=== PATIENT | female | born 1965 | race Caucasian/White ===

== ENCOUNTER → 2021-08-30 17:39 | Outpatient (CLI) | payer MEDICAID, SELFPAY ==
--- NOTE | 2021-08-30 17:44 | CT_ITS ---
STUDY: CT ORBITS WITHOUT CONTRAST REASON FOR EXAM: Female, 56 years old. Superficial foreign body of right eyelid RADIATION DOSAGE (If Supplied By Facility): CTDIvol = ( 29.38 ) mGy, DLP = ( 334.42 ) mGycm TECHNIQUE: The patient was scanned in a multi detector CT scanner. Transaxial imaging was performed without the administration of intravenous contrast material. Sagittal and coronal images were reconstructed. Individualized dose optimization techniques were used for this CT. COMPARISON: None. FINDINGS: Normal globes. Normal intraconal spaces. Normal optic nerve sheath complex. Normal bilateral extraocular muscles. Normal lacrimal glands. Normal bilateral medial and inferior orbital bolton. Normal bilateral maxillary bones. Normal bilateral frontozygomatic arches. Normal bilateral zygomatic temporal arches. Normal frontal sinus. Normal ethmoidal sinuses. Normal maxillary sinuses. Normal sphenoid sinuses. No radiopaque foreign body is seen. CT/Orb Sella Post Fossa Ear w/o IMPRESSION: No radiopaque foreign body is seen. Electronically Signed: Clint Melchor MD at 9:56 EDT , Service support ,
== END ==
PROVIDERS: PCP Internal Medicine; Referring Provider Ophthalmology; Visit Provider Ophthalmology
DX: S00.251A Superficial foreign body of right eyelid and periocular area, initial encounter (principal); X58.XXXA Exposure to other specified factors, initial encounter; Y93.9 Activity, unspecified; Y92.9 Unspecified place or not applicable; Y99.9 Unspecified external cause status
CPT/HCPCS: 70480

== ENCOUNTER → 2021-09-12 15:35 | Outpatient (CLI) | payer MEDICAID, SELFPAY ==
--- NOTE | 2021-09-12 15:53 | RAD_ITS ---
HISTORY: LUMBAGO RT SIDE. TECHNIQUE: XR Hip Unilateral with Pelvis when performed; 2-3 Views. # of images incl. paperwork: 3. COMPARISON: 04/26/2015. FINDINGS: OSSEOUS STRUCTURES: No acute displaced fracture identified. Note that overlapping bowel shadows may obscure detail. Mineralization unremarkable. ALIGNMENT/JOINTS: No dislocation. Joint space maintained. RAD/Hip Min 2 Views (Portable) IMPRESSION: No acute fracture or dislocation identified in the right hip. at 1229 Reported and signed by: Laney Wright MD Electronically Signed: Laney Wright MD at 12:28 EDT Tel , Service support ,
--- NOTE | 2021-09-12 15:53 | RAD_ITS ---
STUDY: X-RAY - PELVIS REASON FOR EXAM: Female, 56 years old. Low back pain TECHNIQUE: Three views of the pelvis were obtained. COMPARISON: None. FINDINGS: There is a non-specific bowel gas pattern. Normal visualized soft tissue structures. Normal bilateral iliac wings, sacroiliac joints and visualized sacrum. Normal visualized bilateral superior and inferior pubic rami. Normal pubic symphysis. Normal ischial tuberosities. Normal visualized right femoral head. Normal right acetabulum. Normal right hip joint. Normal visualized left femoral head. Normal left acetabulum. Normal left hip joint. RAD/Pelvis 1 or 2 Views IMPRESSION: Normal x-ray examination of the pelvis. Electronically Signed: Ralph Gonzalez MD at 17:13 EDT , Service support ,
--- NOTE | 2021-09-12 16:00 | RAD_ITS ---
STUDY: X-RAY - LUMBAR SPINE REASON FOR EXAM: Female, 56 years old. Right-sided back pain TECHNIQUE: 3 view(s) of the lumbar spine were obtained. COMPARISON: None FINDINGS: Normal lumbar lordosis. There is no substantial scoliosis. There is a normal alignment of the vertebrae. There is multilevel endplate spondylosis of the lumbar vertebrae. There is multi-level degenerative disc disease with multi-level disc space narrowing. The soft tissue structures are unremarkable. RAD/Lumbar Spine 2 or 3 Views IMPRESSION: Degenerative changes of the spine, as detailed above. Electronically Signed: Ralph Gonzalez MD at 17:13 EDT , Service support ,
[2021-09-12 16:32] LABS: Absolute Lymphocyte Count 1.64 X10^3/uL (0.83-4.51); Basophil# 0.06 X10^3/uL; Basophil% 0.7 % (0-1); Eosinophils% 9.9 % (0-5); Hematocrit 41.6 % (37-47); Hemoglobin 13.6 g/dL (12.0-15.0); Lymphocyte # 1.64 X10^3/ul (0.83-4.51); Lymphocyte % 20.3 % (19-41); Mean Corp Hgb Conc 32.7 g/dL (32-36); Mean Corpuscular Hgb 30.9 pg (27.0-32.0); Mean Corpuscular Volume 94.5 fL (81-99); Mean Platelet Vol. 11.1 fl (6.2-12.0); Monocyte% 7.4 % (0-10); NRBC Flagged by Analyzer 0 % (0-5); Neutrophil # 4.95 X10^3/uL (2.7-7.7); Neutrophil % 61.3 % (47-70); Platelet Count 306 K/mm3 (150-450); RBC Distribution Width SD 42.2 fl (35.1-43.9); White Blood Count 8.1 K/mm3 (4.4-11.0)
[2021-09-12 16:49] LABS: Erythrocyte Sedimentation Rate 18 mm/hr (0-30)
[2021-09-12 17:22] LABS: ALB/GLOB Ratio 0.9 RATIO (0.9-2.4); AST(SGOT) 27 U/L (15-37); Alanine Aminotransfer ALT/SGPT 41 U/L (13-56); Albumin, Serum 3.9 g/dL (3.2-5.0); Alkaline Phosphatase 111 U/L (45-117); Anion Gap 5 (5-15); BUN 14 mg/dL (7-18); BUN/Creat Ratio 21.5 RATIO (10-20); CPK Total, Creatine Kinase 97 U/L (26-192); CRP 6.92 mg/L (0.0-3.0); Calcium,Total 9.5 mg/dL (8.5-10.1); Chloride 104 mmol/L (98-107); Creatinine, Serum 0.65 mg/dL (0.55-1.02); EST Glomerular Filtration Rate 100 mL/min (>60); Est Glom Filt Rate - Afr Amer 121 mL/min (>60); Globulin 4.5 g/dL (2.2-4.2); Glucose 93 mg/dL (74-106); Potassium 4.2 mmol/L (3.5-5.1); Protein, Total 8.4 g/dL (6.4-8.2); Sodium Level 140 mmol/L (136-145)
== END ==
PROVIDERS: Visit Provider Nurse Practitioner Adult Health
DX: M54.41 Lumbago with sciatica, right side (principal)
CPT/HCPCS: 36415; 72100; 72170; 73502; 80053; 82550; 85025; 85652; 86140; 86431

== ENCOUNTER → 2021-10-17 08:04 | Outpatient (CLI) | payer MEDICAID, SELFPAY ==
--- NOTE | 2021-10-17 08:04 | MRI_ITS ---
HISTORY: pain. TECHNIQUE: Multiplanar and multisequence MR images of the lumbar spine. IV Contrast dosage and agent: None. # of images incl. paperwork: 127. COMPARISON: X-ray 09/12/2021. FINDINGS: VERTEBRAE: Vertebral body heights maintained. Schmorl's node and limbus vertebra noted at L3. Degenerative bone marrow endplate changes of L3-4 and L5-S1. ALIGNMENT: No significant anterior or posterior subluxation. CONUS: Normal morphology and position at L1. SOFT TISSUES: Posterior subcutaneous edema present. INTERVERTEBRAL DISCS: Multilevel degenerative changes with mild posterior disc bulge osteophyte complexes and facet arthropathy. L1-2, L2-3: No significant central canal stenosis or foraminal narrowing. L3-4: No significant central canal stenosis. Mild right foraminal narrowing. L4-5: No significant central canal stenosis or foraminal narrowing. L5-S1: Mild bilateral foraminal narrowing. MRI/Spine Lumbar (Routine) IMPRESSION: Mild lumbar degenerative disc disease without significant spinal canal stenosis. at 1233 Reported and signed by: Laney Wright MD Electronically Signed: Laney Wright MD at 12:32 EST Tel , Service support ,
== END ==
PROVIDERS: Visit Provider Orthopaedic Surgery
DX: M54.16 Radiculopathy, lumbar region (principal)
CPT/HCPCS: 72148

== ENCOUNTER 2021-11-22 14:58 | Outpatient (CLI) | payer MEDICAID, SELFPAY ==
[2021-11-22 16:24] LABS: Absolute Lymphocyte Count 2.21 X10^3/uL (0.83-4.51); Absolute Neutrophil Count 8.1 X10^3/uL (2.0-7.7); Basophil# 0.04 X10^3/uL; Basophil% 0.3 % (0-1); Eosinophil# 0.57 X10^3/uL; Eosinophils% 4.8 % (0-5); Hematocrit 42.3 % (37-47); Hemoglobin 14.1 g/dL (12.0-15.0); Lymphocyte # 2.21 X10^3/ul (0.83-4.51); Lymphocyte % 18.4 % (19-41); Mean Corp Hgb Conc 33.3 g/dL (32-36); Mean Corpuscular Hgb 30.6 pg (27.0-32.0); Mean Corpuscular Volume 91.8 fL (81-99); Mean Platelet Vol. 10.9 fl (6.2-12.0); Monocyte# 0.95 X10^3/uL; Monocyte% 7.9 % (0-10); NRBC Flagged by Analyzer 0 % (0-5); Neutrophil # 8.11 X10^3/uL (2.7-7.7); Neutrophil % 67.8 % (47-70); Platelet Count 341 K/mm3 (150-450); RBC Distribution Width CV 12.9 % (11.6-14.6); RBC Distribution Width SD 42.3 fl (35.1-43.9); Red Blood Count 4.61 M/mm3 (4.2-5.4)
[2021-11-22 16:45] LABS: Lipase 127 U/L (73-393); Thyroid Stim Hormone (TSH) 3.13 uIU/mL (0.358-3.74)
== END 2021-11-22 23:59 | disposition short-term general hospital (02) ==
LOC: LAB 14:59
PROVIDERS: Visit Provider Nurse Practitioner Adult Health
DX: R19.7 Diarrhea, unspecified (principal)
CPT/HCPCS: 36415; 83690; 84443; 85025

== ENCOUNTER 2021-11-23 12:59 | Outpatient (CLI) | payer MEDICAID, SELFPAY | END 2021-11-23 23:59 | disposition short-term general hospital (02) | LOC: LABSPEC 13:00 | PROVIDERS: Visit Provider Nurse Practitioner Adult Health | DX: R19.7 Diarrhea, unspecified (principal) | CPT/HCPCS: 82274; 87177; 87209; 87506 ==

== ENCOUNTER 2021-12-16 09:25 | Outpatient (CLI) | payer MEDICAID, SELFPAY ==
[2021-12-16 10:12] LABS: Absolute Lymphocyte Count 2.51 X10^3/uL (0.83-4.51); Absolute Neutrophil Count 4.2 X10^3/uL (2.0-7.7); Basophil# 0.04 X10^3/uL; Basophil% 0.5 % (0-1); Eosinophil# 0.13 X10^3/uL; Eosinophils% 1.8 % (0-5); Hematocrit 38.8 % (37-47); Hemoglobin 12.6 g/dL (12.0-15.0); Lymphocyte # 2.51 X10^3/ul (0.83-4.51); Lymphocyte % 34.4 % (19-41); Mean Corp Hgb Conc 32.5 g/dL (32-36); Mean Corpuscular Hgb 30.2 pg (27.0-32.0); Mean Platelet Vol. 10.9 fl (6.2-12.0); Monocyte# 0.38 X10^3/uL; Monocyte% 5.2 % (0-10); NRBC Flagged by Analyzer 0 % (0-5); Neutrophil # 4.22 X10^3/uL (2.7-7.7); Neutrophil % 57.8 % (47-70); Platelet Count 294 K/mm3 (150-450); RBC Distribution Width CV 13.2 % (11.6-14.6); RBC Distribution Width SD 45.2 fl (35.1-43.9); Red Blood Count 4.17 M/mm3 (4.2-5.4); White Blood Count 7.3 K/mm3 (4.4-11.0)
== END 2021-12-16 23:59 | disposition short-term general hospital (02) ==
LOC: LAB 09:28
PROVIDERS: Referring Provider Nurse Practitioner Adult Health; Visit Provider Nurse Practitioner Adult Health
DX: D72.829 Elevated white blood cell count, unspecified (principal)
CPT/HCPCS: 36415; 85025

== ENCOUNTER 2021-12-29 12:00 | Outpatient (RCR) | payer MEDICAID, SELFPAY ==
--- NOTE | 2021-11-30 13:57 | HP.PTEVAL_ITS ---
Patient's Visit Information SHELLIE HOWELL is a 56 year old F referred to Physical Therapy by SUDHAKAR Rankin with a diagnosis of LUMBOSACRAL RADICULOPATHY, LUMBOSACRAL SPONDYLOSIS, DDD LUMBAR. Date of Evaluation: 11/30/21 Physical Therapist: Juanito Talbert, PT, Cert MDT, OCS - Visit Plan Frequency: 2x /Week Duration: 4 Weeks Plan: LATEX ALLERGY. PT INTERVETIONS AQAUTIC THERAPY FOR GRADED LUMBAR ROM ,DLS ,POSTURAL EX'S, AND LE STRENGTHENING/FLEXABLITY - Subjective This 56 y/o female presents to physical therapy lumbar pain with radicular right. Patient has had lumbar since 1994 at work. Patient pain worse overtime. Patient seen DR Duran did x-rays lumbar ,pelvis/hip and MRI DDD and couldn't really help patient and recommended pain management and. had epidural injection 11/16/21 helped some. Patient had prior chiropractor treatment. Location of pain symmetrical right back to right leg anterior leg and right groin and less radiating left leg. C/O paresthesia/tingling. Coughing/sneezing +. Bowel/bladder -. Aggravating factors walking, standing affecting ability to do housework tasks, bending, lifting. Patient uses rollators for gait and/or cane. Alleviating rest. Patient affects sleeping. MEDS : muscle relaxers. Patient condition affects QOL and function. Patient does have shower chair,rolltar. SOCIAL: single. VOCATION: unemployed. PRECAUTION: ALLERGIC TO LATEX - Pain Bilateral Back Pain Intensity (Out of 10): 8 Pain Intensity Range: 10 Right Lower Extremity Pain Intensity (Out of 10): 8 Pain Intensity Range: 10 - Objective POSTURE: mild forward posture. NEURO: c/o paresthesia/tingling right leg ,reflexes L3-4,L4-5,L5-S1 3/3. PALAPTION: tender SI /LS. GAIT: guarded gait antalgic gait with rollator mild forward posture. SYMMTRIES: align. MMT: quads 3/5, hamstrings 3/5 ,hip flexion 3/5 left ,right 3+/5 ,ankle 4-/5. LUMBAR ROM: flexion mod/severe mod , extension mod loss ,side glides mod. FLEXABILITY: hamstrings mod/severe ,piriformis mod/severe - Special Tests L/S Slump test left side: Positive L/S Slump test right side: Positive L/S Left Straight Leg Raise: Positive L/S Right Straight Leg Raise: Positive L/S Left Femoral Nerve Tension: Negative L/S Right Femoral Nerve Tension: Positive L/S Degenerative Changes - Quadrant Test: Positive - Balance/Special Test Scores Oswestry Low Back Score: 37 - Goals Goal 1:: I with Aquatic therapy program Goal Time Frame: 4-6 Weeks Goal 2:: Patient to demonstrate 50% improvement with decrease back and and leg pain to improve function Goal Time Frame: 4-6 Weeks Goal 3:: Patient to improve lumbar ROM for function of recovery for ADLS' to put on shoes. Goal Time Frame: 4-6 Weeks Goal 4:: Patient to increase strength right leg 3+/5 and left leg 4-/5 to improve gait Goal Time Frame: 4-6 Weeks Goal 5:: Patient to improve back owestry score by 5 points to improve QOL. Goal Time Frame: 4-6 Weeks - Rehabilitation Potential Physical Therapy Diagnosis: This patient has severe lumbar pain and radicular symptoms right leg > left with poor ROM ,pain, weakness right leg> left ,walks with rollator and cane difficulty to stand for ADL's and using rollator or cane for gait Rehabilitation Potential: Fair - Anticipated Interventions Patient/Client Instruction: Educate patient on: Condition, Plan of Care For the Purpose of:: To decrease pain, To increase ROM, To improve muscle performance and motor function, To improve ability to perform ADL's, To increase tolerance to activity/condition/position, To improve ability of physical actions for home/community/work/leisure, To improve gait and locomotor functions, To improve health of tissue, To decrease soft tissue restriction, To increase flexibility/ROM, To reduce risk of recurrence, To prevent re-injury Therapeutic Exercise to Include: Strength training, Balance training, Body mechanics, Postural training, Flexibilty training, Active ROM, Dynamic Lumbar Stabilization For the Purpose of:: To decrease pain, To increase ROM, To improve muscle perfor clari and motor function, To increase tolerance to activity/condition/position, To improve performance and independence with ADL's, To improve ability of physical actions for home/community/work/leisure, To improve gait and locomotor functions, To improve health of tissue, To prevent re-injury Thank you for the opportunity to evaluate your patient. For Medicare and Medicare HMO plans, please review the plan of care and approve it. It will need to be FAXED BACK to us at [phone] for Medicare purposes. For Medicare only, by signing this I certify the plan of care. Please let me know if there are questions or concerns regarding this plan of care. Physician Signature: Date:
--- NOTE | 2021-12-29 12:14 | HP.PTDCSUM_ITS ---
It has been my pleasure to treat SHELLIE HOWELL referred by Peace Banegas NP- C, with the diagnosis of LUMBOSACRAL RADICULOPATHY, LUMBOSACRAL SPONDYLOSIS, DDD LUMBAR for a total of 6 visit(s). Discharge Date: 12/29/21 Please see the following information for a summary of their discharge status. Subjective: Patient had covid. Also had epidural injection lumbar , reaction with pain. right leg feels weaker Bilateral Back Pain Intensity (Out of 10): 8 Right Lower Extremity Pain Intensity (Out of 10): 8 LLE Pain Intensity (Out of 10): 8 % Improvement: 50 Objective/Function: POSTURE: mild forward posture. GAIT: reciprocal pattern with rollator. NEUR0: c/o paresthesia /tingling legs. MMT: RLE quads/hams 3- /5,hip flexion 2+/5,right 3+/5 quads/hams ,hip flexion 3+/5 Goal 1:: I with Aquatic therapy program Goal Progress: Progressing Goal 2:: Patient to demonstrate 50% improvement with decrease back and and leg pain to improve function Goal Progress: Goal Met Goal 3:: Patient to improve lumbar ROM for function of recovery for ADLS' to put on shoes. Goal Progress: Progressing Goal 4:: Patient to increase strength right leg 3+/5 and left leg 4-/5 to improve gait Goal Progress: Progressing Goal 5:: Patient to improve back owestry score by 5 points to improve QOL. Goal Progress: Progressing Plan: d/c RTD Discharge Comments: HEP If there are questions or concerns regarding this patient's physical therapy, please feel free to call me at [phone]. Thank you for the referral of this patient. Sincerely, Juanito Talbert, PT, Cert MDT, OCS Balance/Gait/Functional tests - Balance/Special Test Scores Oswestry Low Back Score: 29
== END 2021-12-29 19:00 | disposition home or self-care (01) ==
LOC: PT 12:00
PROVIDERS: Referring Provider Nurse Practitioner Family; Visit Provider Nurse Practitioner Family
DX: M51.37 Other intervertebral disc degeneration, lumbosacral region (principal); M46.96 Unspecified inflammatory spondylopathy, lumbar region; M47.817 Spondylosis without myelopathy or radiculopathy, lumbosacral region; M54.17 Radiculopathy, lumbosacral region
CPT/HCPCS: 97110; 97113; 97162; 97530

== ENCOUNTER 2022-01-17 15:29 | Outpatient (CLI) | payer MEDICAID, SELFPAY ==
[2022-01-17 17:22] LABS: AST(SGOT) 44 U/L (15-37); Alanine Aminotransfer ALT/SGPT 75 U/L (13-56); Alkaline Phosphatase 113 U/L (45-117); Anion Gap 6 (5-15); BUN 15 mg/dL (7-18); BUN/Creat Ratio 18.1 RATIO (10-20); Bilirubin, Direct 0.07 mg/dL (0.00-0.30); Calcium,Total 9.6 mg/dL (8.5-10.1); Chloride 105 mmol/L (98-107); Creatinine, Serum 0.83 mg/dL (0.55-1.02); EST Glomerular Filtration Rate 76 mL/min (>60); Est Glom Filt Rate - Afr Amer 92 mL/min (>60); Globulin 4.2 g/dL (2.2-4.2); Glucose 151 mg/dL (74-106); Potassium 3.9 mmol/L (3.5-5.1); Protein, Total 8.2 g/dL (6.4-8.2); Sodium Level 139 mmol/L (136-145)
[2022-01-17 17:34] LABS: Erythrocyte Sedimentation Rate 23 mm/hr (0-30)
[2022-01-17 17:37] LABS: Absolute Lymphocyte Count 1.73 X10^3/uL (0.83-4.51); Absolute Neutrophil Count 3.9 X10^3/uL (2.0-7.7); Basophil# 0.06 X10^3/uL; Basophil% 0.9 % (0-1); Eosinophil# 0.43 X10^3/uL; Eosinophils% 6.5 % (0-5); Hematocrit 40.2 % (37-47); Hemoglobin 13.7 g/dL (12.0-15.0); Lymphocyte # 1.73 X10^3/ul (0.83-4.51); Lymphocyte % 26.3 % (19-41); Mean Corp Hgb Conc 34.1 g/dL (32-36); Mean Corpuscular Hgb 31.9 pg (27.0-32.0); Mean Corpuscular Volume 93.5 fL (81-99); Mean Platelet Vol. 11.4 fl (6.2-12.0); Monocyte# 0.46 X10^3/uL; NRBC Flagged by Analyzer 0 % (0-5); Neutrophil # 3.87 X10^3/uL (2.7-7.7); Platelet Count 296 K/mm3 (150-450); RBC Distribution Width CV 14.2 % (11.6-14.6); RBC Distribution Width SD 47.9 fl (35.1-43.9); White Blood Count 6.6 K/mm3 (4.4-11.0)
[2022-01-19 15:09] LABS: Anti-Centromere B Ab <0.2 AI (0.0-0.9); Anti-Chromatin <0.2 AI (0.0-0.9); Anti-Jo <0.2 AI (0.0-0.9); Anti-Scleroderma-70 AB <0.2 AI (0.0-0.9); RNP Ab <0.2 AI (0.0-0.9); SJOGREN'S Anti-SS-A test < 0.2 AI (0.0-0.9); SJOGREN'S Anti-SS-B test < 0.2 AI (0.0-0.9); Smith Ab <0.2 AI (0.0-0.9)
[2022-01-19 18:42] LABS: Anti-dsDNA Ab <1 IU/mL (0-9)
[2022-01-21 19:07] LABS: Albumin 4.5 g/dL (2.9-4.4); Alpha-1-Globulins 0.2 g/dL (0.0-0.4); Alpha-2-Globulins 0.7 g/dL (0.4-1.0); Endomysial Antibody IgA Negative (Negative); Gamma Globulin 1.1 g/dL (0.4-1.8); HEPATITIS B SURFACE AG Negative (Negative); Hepatitis A IgM Antibody Negative (Negative); Hepatitis B Core AB IgM Negative (Negative); Immunoglobulin A 137 mg/dL (87-352); Immunoglobulin G 897 mg/dL (586-1602); Immunoglobulin M 354 mg/dL (26-217); PROEL- TOTAL PROTEIN 7.6 g/dL (6.0-8.5)
[2022-01-23 12:26] LABS: Gastrin, Serum < 10 pg/mL (0-115); Hep C Antibodies <0.1 s/co ratio (0.0-0.9); Immunoglobulin E 8 IU/mL (6-495); t-Transglutaminase IgA <2 U/mL (0-3)
== END 2022-01-17 23:59 | disposition home or self-care (01) ==
LOC: LAB 15:31
PROVIDERS: Referring Provider Nurse Practitioner Adult Health; Visit Provider Nurse Practitioner Adult Health
DX: K52.9 Noninfective gastroenteritis and colitis, unspecified (principal)
CPT/HCPCS: 80053; 80074; 80076; 82784; 82785; 82941; 83516; 84165; 85025; 86140; 86225; 86235; 86255; 86334

== ENCOUNTER 2022-01-21 11:10 | Outpatient (CLI) | payer MEDICAID, SELFPAY ==
[2022-01-25 18:31] LABS: Calprotectin, Stool 27 ug/g (0-120)
== END 2022-01-21 23:59 | disposition home or self-care (01) ==
LOC: LAB 11:11
PROVIDERS: Referring Provider Nurse Practitioner Adult Health; Visit Provider Nurse Practitioner Adult Health
DX: K21.9 Gastro-esophageal reflux disease without esophagitis (principal); R10.9 Unspecified abdominal pain; K52.9 Noninfective gastroenteritis and colitis, unspecified
CPT/HCPCS: 83630; 83993; 87329

== ENCOUNTER 2022-01-25 18:53 | Outpatient (CLI) | payer MEDICAID, SELFPAY ==
--- NOTE | 2022-01-25 18:57 | CT_ITS ---
EXAM: CT ABDOMEN AND PELVIS WITH INTRAVENOUS CONTRAST CLINICAL INDICATION: ABD PAIN TECHNIQUE: Helically acquired images were obtained of the abdomen and pelvis with intravenous contrast. CTDIvol = ( 16.39 ) mGy, DLP = ( 997.20 ) mGycm This CT exam was performed using one or more of the following dose reduction techniques: automated exposure control, adjustment of the mA and/or kV according to patient size, and/or use of iterative reconstruction technique. This report was created using LiveTop report generation technology. CONTRAST: Oral and amp; IV Gastrografin and amp; 100mL Isovue-300 COMPARISON: None. FINDINGS: LOWER THORAX: Unremarkable. Lung bases are clear. No cardiomegaly. No significant pericardial effusion. ABDOMEN: LIVER: Unremarkable. Homogeneous. No focal mass. GALLBLADDER AND BILE DUCTS: Unremarkable. No calcified gallstones. No gallbladder distention or wall edema. No intra- or extrahepatic biliary ductal dilation. PANCREAS: Unremarkable. No focal cystic or solid mass. SPLEEN: Unremarkable. Normal size without focal cystic or solid mass. ADRENALS: Unremarkable. No nodules. KIDNEYS AND URETERS: Unremarkable. Normal renal size and position. No hydronephrosis. STOMACH AND BOWEL: No inflammatory or septic changes of bowel. No stomach or bowel distention. No focal inflammatory change. PELVIS: APPENDIX: Postsurgical changes in the right lower quadrant. Question prior appendectomy. Correlate with surgical history. BLADDER: Unremarkable. REPRODUCTIVE: Unremarkable as visualized. No mass. ABDOMEN and PELVIS: INTRAPERITONEAL SPACE: Unremarkable. No ascites or other fluid collection. No free air. BONES/JOINTS: No suspicious lytic or sclerotic lesions of bone. SOFT TISSUES: Unremarkable. No discrete abdominal or pelvic wall hernia. VASCULATURE: Unremarkable. Abdominal aorta is non-dilated. LYMPH NODES: Unremarkable. No enlarged lymph nodes. CT/Abdomen/Pelvis WITH Contrast IMPRESSION: No acute or inflammatory disease or bowel obstruction. Electronically Signed: Juan Loya MD at 19:50 EST ,
== END 2022-01-25 23:59 | disposition home or self-care (01) ==
LOC: CT 18:53
PROVIDERS: Visit Provider Nurse Practitioner Adult Health
DX: R10.9 Unspecified abdominal pain (principal)
CPT/HCPCS: 74177; Q9967

== ENCOUNTER 2022-04-11 05:08 | Day surgery (SDC) | payer MEDICAID, SELFPAY ==
[2022-04-11] VITALS (7 sets, daily range): BP systolic 107–140; BP diastolic 65–78; PULSE 57–82; RESP 14–18; TEMP 36.1–36.7; O2SAT 96–100; BMI 30.6
--- NOTE | 2022-04-11 | EGD_PTH ---
PATIENT: SHELLIE HOWELL LOC: EN U#:[id number] AGE/SX: 57/F ROOM: RE04/11/[address]: Dr. Howie Fontaine DO : 1965 BED: DIS: 04/11/2022 SPEC #: [id number] RECD: 04/11/22 12:52 STATUS: MIKAYLA BRODERICK #: [id number] ONUR: 04/11/22 00:[address]: Howie Fontaine DEPT: SURGICAL PATHOLOGY RECD BY: Rogers Mir ENTERED: 04/11/22 12:53 SP TYPE: EGD BIOPSY OT DR: Alesha Hoffman, GREASE REFINER OPERATOR-C [facility] Tissues: A - Duodenum, NOS B - Pylorus C - Esophageal mucous membrane D - Cecum, NOS E - Gastric mucous membrane F - COLON BIOPSY Procedures: Special Stain Group II Surgery Specimen Level IV Alcian Blue/PAS (control) HEADER OPERATION: Colonoscopy with biopsy and polypectomy, [place] [place] PRE[place] DIAGNOSIS: Chronic diarrhea TISSUE SUBMITTED: A ? Duodenum biopsy, B ? Pylorus biopsy, C ? Distal esophagus biopsy, D ? Cecum polyp, E ? Terminal ileum biopsy, F ? Random colonic biopsy MICROSCOPIC DIAGNOSIS A. 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 B. Gastric pylorus, biopsy: Chronic inflammation and intestinal metaplasia. No evidence of dysplasia. See comment. C. Distal esophagus, biopsy: Gastroesophageal junctional mucosa with chronic inflammation. Focal changes of reflux. No evidence of goblet cell metaplasia. See comment. D. Cecal polyp, biopsy: Cauterized fragments of colonic mucosa with hyperplastic change. E. Terminal ileum, biopsy: No pathologic change. F. Colon, random biopsy: No significant pathologic change. See comment. AM:danielito 04/12/2022 COMMENT B. The results of immunohistochemistry for Helicobacter pylori will be reported separately ([id number]). Immunohistochemistry ([id number]) for P53 and Ki-67 will be performed and results will be reported separately. C. Alcian blue/PAS stain with matched control supports the above diagnosis. F. Eosinophils are mildly increased in the mucosa. The significance of this is unclear. Clinical correlation is suggested. MICROSCOPIC DESCRIPTION Slides are reviewed. GROSS DESCRIPTION A - Received in fixative is one container labeled with the patient's name and designated duodenum. The specimen consists of multiple irregular fragments of light morocho soft tissue that in aggregate measure 1 x 0.3 x 0.1 cm. The specimen is totally submitted in one cassette. B - Received in fixative is one container labeled with the patient's name and designated pylorus. The specimen consists of multiple irregular fragments of light morocho soft tissue that in aggregate measure 1 x 0.3 x 0.1 cm. The specimen is totally submitted in one cassette. C - Received in fixative is one container labeled with the patient's name and designated distal esophagus. The specimen consists of two irregular fragments of light morocho soft tissue that in aggregate measure 1 x 0.4 x 0.1 cm. The specimen is totally submitted in one cassette. D - Received in fixative is one container labeled with the patient's name and designated cecum polyp. The specimen consists of two irregular fragments of light morocho soft tissue that in aggregate measure 0.5 x 0.2 x 0.1 cm. The specimen is totally submitted in one cassette. E - Received in fixative is one container labeled with the patient's name and designated terminal ileum biopsy. The specimen consists of two irregular fragments of light morocho soft tissue that in aggregate measure 0.8 x 0.4 x 0.1 cm. The specimen is totally submitted in one cassette. F - Received in fixative is one container labeled with the patient's name and designated random colonic biopsy. The specimen consists of multiple irregular fragments of light morocho soft tissue that in aggregate measure 2 x 1 x 0.1 cm. The specimen is totally submitted in one cassette. / SJ:rg 04/11/2022 TC:3 CPT: 87605 x6, 55291
--- NOTE | 2022-04-11 06:30 | IMM_PTH ---
PATIENT: SHELLIE HOWELL LOC: EN U#:[id number] AGE/SX: 57/F ROOM: RE04/11/[address]: Dr. Howie Fontaine DO : 1965 BED: DIS: 04/11/2022 SPEC #: [id number] RECD: 04/11/22 14:09 STATUS: MIKAYLA REQ #: [id number] ONUR: 04/11/22 06:[address]: Howie Fontaine DEPT: IMMUNOHISTOCHEMISTRY RECD BY: Radha Drake ENTERED: 04/11/22 14:09 SP TYPE: IMMUNO OTHR DR: Alesha Hoffman, PIT SHOVELER-C [facility] Tissues: B - Pyloric antrum Procedures: H Pylori (initial) KI-67 (add) P53 (add) PHYSICIAN & INSTITUTION [place] [id number] SPECIMEN INFORMATION: Tissue Source: B ? Pylorus biopsy Clinical Info: Chronic diarrhea Specimen Number: [id number] CPT code: 69560, 33933 x2 METHODOLOGY: Deparaffinized sections of prefer/formalin-fixed tissue or PAP/DQ stained slides are incubated with monoclonal/polyclonal antibodies/oligonucleotide probes. Localization is made via biotin free immunoperoxidase method. Appropriate controls are performed and reacted as expected. Results on target cell population are indicated in the following table: RESULTS: ANTIBODY / CLONE RESULT Block B H Pylori (polyclonal) negative P53 (DO-7) negative Ki-67 (30-9) positive, low These tests were developed and their performance characteristics determined by [facility]. They may not have been cleared or approved by the U.S. Food and Drug Administration. The FDA has determined that such clearance or approval is not necessary. The above immunohistochemical/dualISH markers are ordered and reviewed by the Pathologist. INTERPRETATION: B. Pylorus, biopsy: Negative for Helicobacter pylori organisms. No evidence of dysplasia. AM:danielito 04/13/2022
--- NOTE | 2022-04-11 07:26 | PCM.HP.BLA ---
History and Physical Date of Admission: 04/11/22 SHELLIE HOWELL, is a 56 F who presents to the office today for f/u chronic diarrhea. Her glucose was elevated. She has made changes in her diet, cutting out sweets, drinking more water. She would like to keep making improvements in diet and then check hgb a1c to determine if she has DM. We reviewed her other results. CT abd pel neg. Sl elevated IgM, may be reactive, can recheck later. Slight elevation ast and alt. CRP is elevated. Negative stool calprotectin. Neg celiac disease. Neg JO ANN-Comprehensive. Normal gastrin level. She requires Depends and bed pads for urinary and fecal incontinence. She takes one loperamide when stool is liquid; if she still has diarrhea the next day then she again takes one loperamide; usually has to take one pill daily x 5 days in order to have formed stools; she stops taking it until stool is again liquid, which is usually about 5 days later. She has been doing this regimen since 2017. No prior evaluation for diarrhea. Abd gets distended but no gas. Denies cramping. Mild pain intermittently lower abd. No nausea, vomiting, acid reflux, heartburn, dysphagia. No hematochezia or melena. Stool was negative for occult blood in 11/2021. No prior EGD or colonoscopy. 11/2021 stool tests negative for enteric pathogens, O&P 11/2021 normal TSH, hgb 12.6 08/2021 esr 18, crp 6.9, protein and globulin elevated EGD and colonoscopy are scheduled for early March ROS Gastro GI: Positive for abdominal pain, bloating and diarrhea Exam Const General: cooperative, well developed and well groomed Quality Reporting Tobacco Screening (CMS 138) Smoking Status: Former smoker Assessment and Plan Assessment and Plan (1) Chronic diarrhea: Status: Chronic (2) Elevated glucose: Status: Acute Plan: We discussed test results so far. She will get hgb A1c in March. EGD and colonoscopy are in March. f/u 2 wks after for discussion of results. I have re-examined the patient. There are no clinical changes since date of exam.
--- NOTE | 2022-04-11 07:31 | OP.CCLET_ITS ---
08/18/2022 Trish Benton [facility] Re : Upper GI endoscopy procedure [facility] This procedure was performed on Monday, April 11, 2022. My impressions and recommendations are as follows: Impressions : - LA Grade B reflux esophagitis. Biopsied. - Non-bleeding gastric ulcers with no stigmata of bleeding. Biopsied. - Granular gastric mucosa. Biopsied. - Multiple non-bleeding duodenal ulcers with no stigmata of bleeding. Biopsied. Recommendations : - Discharge patient to home. - Resume previous diet. - Continue present medications. - Await pathology results. My findings are described in the full procedure note, which is enclosed. If I can be of further assistance, please feel free to contact me at . Sincerely, Howie Friend, 04/11/2022 7:30:51 AM This report has been signed electronically.
--- NOTE | 2022-04-11 07:31 | OP.EGD_ITS ---
Patient Name: Petty Dean Procedure Date: 04/11/2022 6:15 AM Date of : 1965 Age: 57 Procedure: Upper GI endoscopy Indications: Functional Dyspepsia Providers: Howie Fonatine DO Medicines: Monitored Anesthesia Care Patient Profile: This is a 57 year old female. Refer to note in patient chart for documentation of history and physical. Patient has symptoms of acute abdominal cramping and chronic epigastric abdominal pain. Complications: No immediate complications. Procedure: Pre-Anesthesia Assessment: - Prior to the procedure, a History and Physical was performed, and patient medications and allergies were reviewed. The risks and benefits of the procedure and the sedation options and risks were discussed with the patient. All questions were answered and informed consent was obtained. Patient identification and proposed procedure were verified by the physician. Mental Status Examination: alert and oriented. Airway Examination: normal oropharyngeal airway and neck mobility. Respiratory Examination: clear to auscultation. CV Examination: normal. Prophylactic Antibiotics: The patient does not require prophylactic antibiotics. Prior Anticoagulants: The patient has taken no previous anticoagulant or antiplatelet agents. ASA Grade Assessment: II - A patient with mild systemic disease. After reviewing the risks and benefits, the patient was deemed in satisfactory condition to undergo the procedure. The anesthesia plan was to use moderate sedation / analgesia (conscious sedation). Immediately prior to administration of medications, the patient was re-assessed for adequacy to receive sedatives. The heart rate, respiratory rate, oxygen saturations, blood pressure, adequacy of pulmonary ventilation, and response to care were monitored throughout the procedure. The physical status of the patient was re-assessed after the procedure. After obtaining informed consent, the endoscope was passed under direct vision. Throughout the procedure, the patient's blood pressure, pulse, and oxygen saturations were monitored continuously. The colonoscope was introduced through the mouth, and advanced to the second part of duodenum. The upper GI endoscopy was accomplished without difficulty. The patient tolerated the procedure well. Scope In: 7:04:47 AM Scope Out: 7:09:51 AM Total Procedure Duration Time 0 hours 5 minutes 4 seconds Findings: LA Grade B (one or more mucosal breaks greater than 5 mm, not extending between the tops of two mucosal folds) esophagitis with no bleeding was found 37 to 39 cm from the incisors. Biopsies were taken with a cold forceps for histology. Verification of patient identification for the specimen was done. Estimated blood loss was minimal. Three non-bleeding linear gastric ulcers with no stigmata of bleeding were found in the gastric body. The largest lesion was 3 mm in largest dimension. Biopsies were taken with a cold forceps for histology. Verification of patient identification for the specimen was done. Estimated blood loss was minimal. Localized granular mucosa was found at the pylorus. Biopsies were taken with a cold forceps for histology. Verification of patient identification for the specimen was done. Estimated blood loss was minimal. Few non-bleeding superficial duodenal ulcers with no stigmata of bleeding were found in the duodenal bulb, in the first portion of the duodenum and in the second portion of the duodenum. The largest lesion was 3 mm in largest dimension. Biopsies were taken with a cold forceps for histology. Verification of patient identification for the specimen was done. Estimated blood loss was minimal. Impression: - LA Grade B reflux esophagitis. Biopsied. - Non-bleeding gastric ulcers with no stigmata of bleeding. Biopsied. - Granular gastric mucosa. Biopsied. - Multiple non-bleeding duodenal ulcers with no stigmata of bleeding. Biopsied. Recommendation: - Discharge patient to home. - Resume previous diet. - Continue present medications. - Await pathology results. Procedure Code(s): --- Professional --- 65305, Esophagogastroduodenoscopy, flexible, transoral; with biopsy, single or multiple CPT copyright 2017 [employer]. All rights reserved. The codes documented in this report are preliminary and upon director of front office review may be revised to meet current compliance requirements. Howie Fontaine DO 04/11/2022 7:30:51 AM This report has been signed electronically. Number of Addenda: 1 Note Initiated On: 04/11/2022 6:15 AM Addendum Number: 1 Addendum Date: 08/18/2022 6:11:23 AM MAC was used as sedation for this procedure. Howie Fontaine DO 08/18/2022 6:11:27 AM This report has been signed electronically.
--- NOTE | 2022-04-11 07:34 | OP.CCLET_ITS ---
[facility] This procedure was performed on Monday, April 11, 2022. My impressions and recommendations are as follows: Impressions : - One 6 mm polyp in the cecum, removed with a hot snare. Resected and retrieved. - Congested mucosa in the terminal ileum. Biopsied. - Congested mucosa in the sigmoid colon, in the descending colon and in the transverse colon. Biopsied. Recommendations : - Written discharge instructions were provided to the patient. - The signs and symptoms of potential delayed complications were discussed with the patient. - Patient has a contact number available for emergencies. - Return to normal activities tomorrow. - Resume previous diet. - Continue present medications. - Await pathology results. - Repeat colonoscopy is recommended for surveillance. The colonoscopy date will be determined after pathology results from today's exam become available for review. My findings are described in the full procedure note, which is enclosed. If I can be of further assistance, please feel free to contact me at . Sincerely, Howie Fontaine DO 04/11/2022 7:33:52 AM This report has been signed electronically.
--- NOTE | 2022-04-11 07:34 | OP.COLON_ITS ---
Patient Name: Petty Dean Procedure Date: 04/11/2022 7:10 AM Date of : 1965 Age: 57 Procedure: Colonoscopy Indications: Chronic diarrhea, Clinically significant diarrhea of unexplained origin Providers: Howie Fontaine DO Medicines: Monitored Anesthesia Care Patient Profile: This is a 57 year old female. Refer to note in patient chart for documentation of history and physical. Patient has symptoms of acute abdominal cramping and chronic epigastric abdominal pain. Last Colonoscopy: date unknown. Unable to locate last colonoscopy report. Complications: No immediate complications. Procedure: Pre-Anesthesia Assessment: - Prior to the procedure, a History and Physical was performed, and patient medications and allergies were reviewed. The risks and benefits of the procedure and the sedation options and risks were discussed with the patient. All questions were answered and informed consent was obtained. Patient identification and proposed procedure were verified by the physician. Mental Status Examination: alert and oriented. Airway Examination: normal oropharyngeal airway and neck mobility. Respiratory Examination: clear to auscultation. CV Examination: normal. Prophylactic Antibiotics: The patient does not require prophylactic antibiotics. Prior Anticoagulants: The patient has taken no previous anticoagulant or antiplatelet agents. ASA Grade Assessment: II - A patient with mild systemic disease. After reviewing the risks and benefits, the patient was deemed in satisfactory condition to undergo the procedure. The anesthesia plan was to use moderate sedation / analgesia (conscious sedation). Immediately prior to administration of medications, the patient was re-assessed for adequacy to receive sedatives. The heart rate, respiratory rate, oxygen saturations, blood pressure, adequacy of pulmonary ventilation, and response to care were monitored throughout the procedure. The physical status of the patient was re-assessed after the procedure. After I obtained informed consent, the scope was passed under direct vision. Throughout the procedure, the patient's blood pressure, pulse, and oxygen saturations were monitored continuously. The colonoscope was introduced through the anus and advanced to the terminal ileum. The colonoscopy was performed without difficulty. The patient tolerated the procedure well. The quality of the bowel preparation was good. Scope In: 7:11:33 AM Scope Withdrawal Time 0 hours 8 minutes 58 seconds Scope Out: 7:23:06 AM Total Procedure Duration Time 0 hours 11 minutes 33 seconds Findings: The perianal and digital rectal examinations were normal. A 6 mm polyp was found in the cecum. The polyp was sessile. The polyp was removed with a hot snare. Resection and retrieval were complete. Verification of patient identification for the specimen was done. Estimated blood loss was minimal. A patchy area of the terminal ileum was congested. Biopsies were taken with a cold forceps for histology. Verification of patient identification for the specimen was done. Estimated blood loss was minimal. An area of mildly congested mucosa was found in the sigmoid colon, in the descending colon and in the transverse colon. Biopsies were taken with a cold forceps for histology. Verification of patient identification for the specimen was done. Estimated blood loss was minimal. Impression: - One 6 mm polyp in the cecum, removed with a hot snare. Resected and retrieved. - Congested mucosa in the terminal ileum. Biopsied. - Congested mucosa in the sigmoid colon, in the descending colon and in the transverse colon. Biopsied. Recommendation: - Written discharge instructions were provided to the patient. - The signs and symptoms of potential delayed complications were discussed with the patient. - Patient has a contact number available for emergencies. - Return to normal activities tomorrow. - Resume previous diet. - Continue present medications. - Await pathology results. - Repeat colonoscopy is recommended for surveillance. The colonoscopy date will be determined after pathology results from today's exam become available for review. Procedure Code(s): --- Professional --- 14556, Colonoscopy, flexible; with removal of tumor(s), polyp(s), or other lesion(s) by snare technique 52324, 59, Colonoscopy, flexible; with biopsy, single or multiple CPT copyright 2017 [employer]. All rights reserved. The codes documented in this report are preliminary and upon cattle alley worker review may be revised to meet current compliance requirements. Howie Fontaine DO 04/11/2022 7:33:52 AM This report has been signed electronically. Number of Addenda: 1 Note Initiated On: 04/11/2022 7:10 AM Addendum Number: 1 Addendum Date: 08/18/2022 6:11:35 AM MAC was used as sedation for this procedure. Howie Fontaine DO 08/18/2022 6:11:43 AM This report has been signed electronically.
== END 2022-04-11 08:15 | disposition home or self-care (01) ==
LOC: EN 05:10 → AC 05:11
PROVIDERS: Visit Provider Internal Medicine Gastroenterology
PROC: 0DJD8ZZ Inspection of Lower Intestinal Tract, Via Natural or Artificial Opening Endoscopic (ICD-10-PCS; CPT 45378; principal; 2022-04-11 06:25)
DX: K26.9 Duodenal ulcer, unspecified as acute or chronic, without hemorrhage or perforation (principal); K31.A19 Gastric intestinal metaplasia without dysplasia, unspecified site; K29.80 Duodenitis without bleeding; D12.0 Benign neoplasm of cecum; K21.00 Gastro-esophageal reflux disease with esophagitis, without bleeding; R73.9 Hyperglycemia, unspecified; K63.89 Other specified diseases of intestine; K25.9 Gastric ulcer, unspecified as acute or chronic, without hemorrhage or perforation; R15.9 Full incontinence of feces; R32 Unspecified urinary incontinence; Z87.891 Personal history of nicotine dependence
CPT/HCPCS: 45385; 45380; 43239; 88305; 88313; 88341; 88342; J7120; J2405

== ENCOUNTER → 2022-05-01 | Outpatient (CLI) | payer MEDICAID, SELFPAY ==
[2022-05-01 10:47] LABS: Absolute Lymphocyte Count 1.31 X10^3/uL (0.83-4.51); Basophil# 0.06 X10^3/uL; Basophil% 1.5 % (0-1); Eosinophil# 0.28 X10^3/uL; Eosinophils% 6.9 % (0-5); Hematocrit 41.8 % (37-47); Hemoglobin 13.7 g/dL (12.0-15.0); Lymphocyte # 1.31 X10^3/ul (0.83-4.51); Lymphocyte % 32.2 % (19-41); Mean Corp Hgb Conc 32.8 g/dL (32-36); Mean Corpuscular Hgb 30.5 pg (27.0-32.0); Mean Corpuscular Volume 93.1 fL (81-99); Mean Platelet Vol. 10.9 fl (6.2-12.0); Monocyte% 9.8 % (0-10); NRBC Flagged by Analyzer 0 % (0-5); Neutrophil # 2.01 X10^3/uL (2.7-7.7); Neutrophil % 49.4 % (47-70); Platelet Count 270 K/mm3 (150-450); RBC Distribution Width CV 12.2 % (11.6-14.6); RBC Distribution Width SD 41.9 fl (35.1-43.9); Red Blood Count 4.49 M/mm3 (4.2-5.4); White Blood Count 4.1 K/mm3 (4.4-11.0)
[2022-05-01 11:16] LABS: Cholesterol 184 mg/dL (200); High Density Lipoprotein 41 mg/dL; Triglycerides 265 mg/dL; Very Low Density Lipoprotein 53 mg/dL (5-40)
[2022-05-01 11:36] LABS: ALB/GLOB Ratio 1.1 RATIO (0.9-2.4); AST(SGOT) 44 U/L (15-37); Alanine Aminotransfer ALT/SGPT 65 U/L (13-56); Alkaline Phosphatase 93 U/L (45-117); Anion Gap 4 (5-15); BUN 6 mg/dL (7-18); BUN/Creat Ratio 7.9 RATIO (10-20); Calcium,Total 9.6 mg/dL (8.5-10.1); Chloride 107 mmol/L (98-107); Creatinine, Serum 0.76 mg/dL (0.55-1.02); EST Glomerular Filtration Rate 84 mL/min (>60); Est Glom Filt Rate - Afr Amer 101 mL/min (>60); Globulin 3.5 g/dL (2.2-4.2); Glucose 97 mg/dL (74-106); Potassium 4.2 mmol/L (3.5-5.1); Protein, Total 7.5 g/dL (6.4-8.2); Sodium Level 142 mmol/L (136-145)
== END | disposition home or self-care (01) ==
LOC: LAB 09:57
PROVIDERS: Internal Medicine Gastroenterology; Referring Provider Nurse Practitioner Adult Health; Visit Provider Nurse Practitioner Adult Health
DX: K52.9 Noninfective gastroenteritis and colitis, unspecified (principal); R73.09 Other abnormal glucose; R10.9 Unspecified abdominal pain
CPT/HCPCS: 36415; 80053; 80061; 83036; 85025

== ENCOUNTER → 2022-07-10 | Outpatient (CLI) | payer MEDICAID, SELFPAY ==
--- NOTE | 2022-07-10 09:26 | US_ITS ---
STUDY: ABDOMINAL ULTRASOUND - ELASTOGRAPHY REASON FOR VISIT: Female, 57 years old. Fatty infiltration of the liver. TECHNIQUE: Liver stiffness measurements were obtained on a [employer] RS 85 ultrasound machine using a CA 1-7 probe following the SRU guidelines. 3 measurements were obtained using a 2-D-SWE method. The IQR/M was 17% suggesting a quality data set. TECHNICAL QUALITY: Adequate. COMPARISON: Comparison is made with prior study done earlier today. FINDINGS: Liver: Fatty infiltration of the liver. Median liver stiffness measured 9.3 kPa. US/Elastography Parenchyma/Organ IMPRESSION: Liver stiffness measures 9.3 kPa compatible with F2-F3 (Mild to moderate liver fibrosis) Metavir score. Electronically Signed: Clint Melchor MD at 15:26 EDT ,
--- NOTE | 2022-07-10 09:26 | US_ITS ---
STUDY: ABDOMINAL ULTRASOUND - RIGHT UPPER QUADRANT REASON FOR VISIT: Female, 57 years old . Elevated liver function tests. TECHNIQUE: Ultrasound evaluation of the right upper quadrant was performed with real-time and static pardo-scale imaging. TECHNICAL QUALITY: Adequate. COMPARISON: None. FINDINGS: Liver: The liver is slightly enlarged and measures 17.8 cm. There is increased echogenicity consistent with fatty infiltration. The bile ducts are within normal limits. There is hepatic color flow. The direction of portal flow is hepatopetal. There is no demonstrated mass lesion. Gallbladder: Normal distended gallbladder. The gallbladder wall measures 2.0 mm. There is a negative sonographic Dias''s sign. There is no pericholecystic fluid. There are no gallstones. Common Bile Duct (C.B.D.): The common bile duct is slightly dilated and measures 8 mm. Pancreas: Normal size of the head, body and tail of the pancreas. There is increased echogenicity of the pancreas. There is no demonstrated pancreatic mass or cyst. Right Kidney: Normal size of the right kidney. The right kidney measures 9.9 cm x 5.3 cm x 4.5 cm. Normal renal cortex. The right cortex measures 1.3 cm. There is no demonstrated renal mass or cyst. There is no right hydronephrosis. US/Abdomen Limited IMPRESSION: Fatty infiltration of the liver. Mildly dilated distal common bile duct. Electronically Signed: Clint Melchor MD at 15:25 EDT ,
== END | disposition home or self-care (01) ==
PROVIDERS: Visit Provider Nurse Practitioner Adult Health
DX: R74.8 Abnormal levels of other serum enzymes (principal)
CPT/HCPCS: 76705; 76981

== ENCOUNTER → 2022-07-17 | Outpatient (CLI) | payer MEDICAID, SELFPAY ==
[2022-07-17 11:19] LABS: Erythrocyte Sedimentation Rate 22 mm/hr (0-30)
[2022-07-17 11:21] LABS: Absolute Lymphocyte Count 1.33 X10^3/uL (0.83-4.51); Absolute Neutrophil Count 2.8 X10^3/uL (2.0-7.7); Basophil# 0.05 X10^3/uL; Eosinophil# 0.61 X10^3/uL; Hematocrit 40.5 % (37-47); Hemoglobin 13.5 g/dL (12.0-15.0); Lymphocyte # 1.33 X10^3/ul (0.83-4.51); Lymphocyte % 26.1 % (19-41); Mean Corp Hgb Conc 33.3 g/dL (32-36); Mean Corpuscular Hgb 30.6 pg (27.0-32.0); Mean Corpuscular Volume 91.8 fL (81-99); Mean Platelet Vol. 11.2 fl (6.2-12.0); Monocyte# 0.32 X10^3/uL; Monocyte% 6.3 % (0-10); NRBC Flagged by Analyzer 0 % (0-5); Neutrophil # 2.77 X10^3/uL (2.7-7.7); Neutrophil % 54.4 % (47-70); Platelet Count 293 K/mm3 (150-450); RBC Distribution Width CV 13.5 % (11.6-14.6); RBC Distribution Width SD 45.7 fl (35.1-43.9); Red Blood Count 4.41 M/mm3 (4.2-5.4); White Blood Count 5.1 K/mm3 (4.4-11.0)
[2022-07-17 11:28] LABS: Prothrombin Time (Protime)PT. 12.4 SECONDS (11.7-14.9)
[2022-07-17 11:47] LABS: Hemoglobin A1c 6.1 % (3.8-5.6)
[2022-07-17 11:49] LABS: AST(SGOT) 31 U/L (15-37); Alanine Aminotransfer ALT/SGPT 52 U/L (13-56); Albumin, Serum 4.1 g/dL (3.2-5.0); Alkaline Phosphatase 112 U/L (45-117); Anion Gap 7 (5-15); BUN 11 mg/dL (7-18); BUN/Creat Ratio 14.4 RATIO (10-20); CRP 4.82 mg/L (0.0-3.0); Calcium,Total 9.2 mg/dL (8.5-10.1); Chloride 105 mmol/L (98-107); Creatinine, Serum 0.76 mg/dL (0.55-1.02); EST Glomerular Filtration Rate 83 mL/min (>60); Est Glom Filt Rate - Afr Amer 101 mL/min (>60); Ferritin 170 ng/mL (8-252); GGTP 119 U/L (5-55); Globulin 4.1 g/dL (2.2-4.2); Glucose 110 mg/dL (74-106); LDH 197 U/L (84-246); Protein, Total 8.2 g/dL (6.4-8.2); Sodium Level 140 mmol/L (136-145)
[2022-07-17 12:10] LABS: HIV - WCH Non-Reactive (Nonreactive)
[2022-07-18 15:34] LABS: Anti-Mitochondrial AB 143.5 Units (0.0-20.0)
[2022-07-20 08:10] LABS: Angiotensin Convert Enzyme 76 U/L (14-82); Ceruloplasmin 31.7 mg/dL (19.0-39.0); Cytoplasmic Ab (C-ANCA) <1:20 titer (Neg:<1:20)
[2022-07-20 17:33] LABS: AFP, Tumor Marker 4.7 ng/mL (0.0-9.2); Anti-Smooth Muscle ABS 5 Units (0-19); Copper, Serum or Plasma 147 ug/dL (80-158); Haptoglobin 163 mg/dL (33-346); Perinuclear Ab (P-ANCA) <1:20 titer (Neg:<1:20)
== END | disposition home or self-care (01) ==
PROVIDERS: Referring Provider Nurse Practitioner Adult Health; Visit Provider Nurse Practitioner Adult Health
DX: K76.0 Fatty (change of) liver, not elsewhere classified (principal); K83.8 Other specified diseases of biliary tract
CPT/HCPCS: 36415; 80053; 82105; 82140; 82164; 82390; 82525; 82728; 82977; 83010; 83036; 83516; 83615; 85025; 85610; 85652; 86140; 86256; 86703

== ENCOUNTER → 2022-08-31 | Outpatient (CLI) | payer MEDICAID, SELFPAY ==
--- NOTE | 2022-08-31 13:51 | BI_ITS ---
MAMMOGRAPHY - BILATERAL SCREENING REASON FOR EXAM: Female, 57 years old. Routine annual screening examination. PERTINENT HISTORY: Mother with breast cancer. TECHNIQUE: Digital bilateral breast melecio (3D mammographic acquisition) in the CC and MLO projections. 2-D mediolateral oblique (MLO) and craniocaudad (CC) views of both breasts were obtained. CAD: Full Field Digital Mammography with Computer Added Detection was performed. COMPARISON: Comparison is made with prior examination dated 01/15/2014. FINDINGS: Breast Composition: There are scattered areas of fibroglandular density. There are no dominant masses or suspicious calcifications. Stable small benign-appearing bilateral axillary lymph nodes. A tissue clip marker is seen in the slightly upper central portion of the right breast. No other significant abnormalities are identified. There has been no significant change since the prior study. BI/SCRN MAMM (CAD)W/MELECIO BILAT IMPRESSION: Stable bilateral screening mammogram. Yearly follow-up mammogram recommended. (A) ASSESSMENT CATEGORY: BIRADS Category 2: Benign. A letter regarding these results will be sent to the patient by the facility within 30 days. Approximately 10% of breast cancers are not detected by mammography. A normal mammogram should not delay biopsy of a clinically suspicious abnormality. [id number] Electronically Signed: Clint Melchor MD at 15:17 EDT ,
== END | disposition home or self-care (01) ==
PROVIDERS: Visit Provider Family Medicine
DX: Z12.31 Encounter for screening mammogram for malignant neoplasm of breast (principal); Z80.3 Family history of malignant neoplasm of breast
CPT/HCPCS: 77063; 77067

== ENCOUNTER → 2023-02-26 | Outpatient (CLI) | payer MEDICAID, SELFPAY ==
[2023-02-26 10:26] LABS: Erythrocyte Sedimentation Rate 17 mm/hr (0-30)
[2023-02-26 10:28] LABS: Absolute Lymphocyte Count 1.46 X10^3/uL (0.83-4.51); Absolute Neutrophil Count 4.2 X10^3/uL (2.0-7.7); Basophil# 0.04 X10^3/uL; Basophil% 0.6 % (0-1); Eosinophil# 0.16 X10^3/uL; Eosinophils% 2.5 % (0-5); Hematocrit 38.5 % (37-47); Hemoglobin 12.5 g/dL (12.0-15.0); Lymphocyte # 1.46 X10^3/ul (0.83-4.51); Lymphocyte % 22.8 % (19-41); Mean Corp Hgb Conc 32.5 g/dL (32-36); Mean Corpuscular Hgb 30.4 pg (27.0-32.0); Mean Corpuscular Volume 93.7 fL (81-99); Mean Platelet Vol. 11.6 fl (6.2-12.0); Monocyte# 0.53 X10^3/uL; Monocyte% 8.3 % (0-10); NRBC Flagged by Analyzer 0 % (0-5); Neutrophil # 4.18 X10^3/uL (2.7-7.7); Neutrophil % 65.5 % (47-70); Platelet Count 301 K/mm3 (150-450); RBC Distribution Width CV 12.9 % (11.6-14.6); RBC Distribution Width SD 44.1 fl (35.1-43.9); Red Blood Count 4.11 M/mm3 (4.2-5.4); White Blood Count 6.4 K/mm3 (4.4-11.0)
[2023-02-26 10:50] LABS: ALB/GLOB Ratio 1.2 RATIO (0.9-2.4); AST(SGOT) 25 U/L (15-37); Alanine Aminotransfer ALT/SGPT 36 U/L (13-56); Alkaline Phosphatase 94 U/L (45-117); Anion Gap 4 (5-15); BUN 15 mg/dL (7-18); CRP 7.12 mg/L (0.0-3.0); Calcium,Total 9.1 mg/dL (8.5-10.1); Chloride 105 mmol/L (98-107); Creatinine, Serum 0.75 mg/dL (0.55-1.02); EST Glomerular Filtration Rate 85 mL/min (>60); Est Glom Filt Rate - Afr Amer 103 mL/min (>60); Globulin 3.3 g/dL (2.2-4.2); Glucose 127 mg/dL (74-106); Potassium 3.6 mmol/L (3.5-5.1); Protein, Total 7.3 g/dL (6.4-8.2); Sodium Level 135 mmol/L (136-145)
[2023-02-27 14:42] LABS: Anti-Mitochondrial AB 160.2 Units (0.0-20.0)
[2023-02-27 16:09] LABS: Cytoplasmic Ab (C-ANCA) <1:20 titer (Neg:<1:20)
[2023-02-27 19:44] LABS: Anti-Smooth Muscle ABS 3 Units (0-19); Perinuclear Ab (P-ANCA) <1:20 titer (Neg:<1:20)
== END | disposition home or self-care (01) ==
LOC: LAB 09:28
PROVIDERS: Referring Provider Nurse Practitioner Adult Health; Visit Provider Nurse Practitioner Adult Health
DX: K76.0 Fatty (change of) liver, not elsewhere classified (principal)
CPT/HCPCS: 36415; 80053; 83516; 85025; 85652; 86140; 86256

== ENCOUNTER → 2023-03-06 | Outpatient (CLI) | payer MEDICAID, SELFPAY ==
--- NOTE | 2023-03-06 09:57 | US_ITS ---
STUDY: ABDOMINAL ULTRASOUND - ELASTOGRAPHY REASON FOR VISIT: Female, 57 years old. NAFLD. TECHNIQUE: Liver stiffness measurements were obtained on a [employer] RS 85 ultrasound machine using a CA 1-7 probe following the SRU guidelines. 3 measurements were obtained using a 2-D-SWE method. TheIQR/M was 21 % suggesting a quality data set. TECHNICAL QUALITY: Adequate. COMPARISON: None. FINDINGS: Liver: Fatty infiltration of the liver. Median liver stiffness measured 8.8 kPa. Abdomen: There is no demonstrated mass lesion. US/ABD Limited w/ Elastography IMPRESSION: Liver stiffness measures 8.8 kPa compatible with F2-F3 (Mild to moderate liver fibrosis) Metavir score. Electronically Signed: Clint Melchor MD at 13:57 EDT ,
== END | disposition home or self-care (01) ==
LOC: US 09:52
PROVIDERS: Referring Provider Nurse Practitioner Adult Health; Visit Provider Nurse Practitioner Adult Health
DX: K76.0 Fatty (change of) liver, not elsewhere classified (principal)
CPT/HCPCS: 76705; 76981

== ENCOUNTER → 2023-09-03 | Outpatient (CLI) | payer MEDICAID, SELFPAY ==
--- NOTE | 2023-09-03 12:59 | BI_ITS ---
MAMMOGRAPHY - BILATERAL SCREENING 3-D TOMOSYNTHESIS REASON FOR EXAM: Female, 58 years old. SCREENING PERTINENT HISTORY: No significant family history. TECHNIQUE: 2-D mammograms and 3-D Tomosynthesis of the breast (s) were performed. CAD was performed. COMPARISON: 08/31/2022 FINDINGS: The breast composition is composed of scattered fibroglandular density. Scattered benign calcifications are seen. No dense spiculated masses or suspicious microcalcifications are identified. No architectural distortion is identified. There is no skin thickening or retraction. There has been no significant change since the prior study. BI/SCRN MAMM (CAD)W/MELECIO BILAT IMPRESSION: No mammographic signs of malignancy. Routine yearly mammograms recommended. ASSESSMENT CATEGORY: BIRADS Category 1: Negative. A letter regarding these results will be sent to the patient by the facility within 30 days. FOLLOW UP RECOMMENDATION: Yearly follow up mammogram recommended. (A) Approximately 10% of breast cancers are not detected by mammography. A normal mammogram should not delay biopsy of a clinically suspicious abnormality. Electronically Signed: Phil Cabrera MD at 14:00 EDT ,
== END | disposition home or self-care (01) ==
LOC: OPBI 12:58
PROVIDERS: Referring Provider Nurse Practitioner Family; Visit Provider Nurse Practitioner Family
DX: Z12.31 Encounter for screening mammogram for malignant neoplasm of breast (principal)
CPT/HCPCS: 77063; 77067

== ENCOUNTER → 2023-09-24 | Outpatient (CLI) | payer MEDICAID, SELFPAY ==
[2023-09-24 09:04] LABS: Erythrocyte Sedimentation Rate 18 mm/hr (0-30)
[2023-09-24 09:06] LABS: Absolute Lymphocyte Count 1.31 X10^3/uL (0.83-4.51); Absolute Neutrophil Count 4.2 X10^3/uL (2.0-7.7); Basophil# 0.04 X10^3/uL; Basophil% 0.6 % (0-1); Eosinophil# 0.15 X10^3/uL; Eosinophils% 2.4 % (0-5); Hematocrit 39.5 % (37-47); Hemoglobin 12.5 g/dL (12.0-15.0); Lymphocyte # 1.31 X10^3/ul (0.83-4.51); Lymphocyte % 21.2 % (19-41); Mean Corp Hgb Conc 31.6 g/dL (32-36); Mean Corpuscular Hgb 29.6 pg (27.0-32.0); Mean Corpuscular Volume 93.6 fL (81-99); Mean Platelet Vol. 11.1 fl (6.2-12.0); Monocyte# 0.49 X10^3/uL; Monocyte% 7.9 % (0-10); NRBC Flagged by Analyzer 0 % (0-5); Neutrophil # 4.16 X10^3/uL (2.7-7.7); Neutrophil % 67.6 % (47-70); Platelet Count 302 K/mm3 (150-450); RBC Distribution Width SD 44.9 fl (35.1-43.9); Red Blood Count 4.22 M/mm3 (4.2-5.4); White Blood Count 6.2 K/mm3 (4.4-11.0)
[2023-09-24 09:07] LABS: International Normalized Ratio 0.9; Prothrombin Time (Protime)PT. 12.6 SECONDS (11.7-14.9)
[2023-09-24 09:18] LABS: Vitamin D,25 Hydroxy 22.9 ng/mL
[2023-09-24 09:25] LABS: ALB/GLOB Ratio 0.9 RATIO (0.9-2.4); AST(SGOT) 20 U/L (15-37); Alanine Aminotransfer ALT/SGPT 32 U/L (13-56); Albumin, Serum 3.7 g/dL (3.2-5.0); Alkaline Phosphatase 110 U/L (45-117); Anion Gap 5 (5-15); BUN 10 mg/dL (7-18); BUN/Creat Ratio 14.2 RATIO (10-20); CRP 4.91 mg/L (0.0-3.0); Chloride 107 mmol/L (98-107); EST Glomerular Filtration Rate 91 mL/min (>60); Est Glom Filt Rate - Afr Amer 110 mL/min (>60); GGTP 82 U/L (5-55); Globulin 3.9 g/dL (2.2-4.2); Glucose 113 mg/dL (74-106); LDH 203 U/L (84-246); Protein, Total 7.6 g/dL (6.4-8.2); Sodium Level 139 mmol/L (136-145)
[2023-09-25 04:07] LABS: AFP, Tumor Marker 4.2 ng/mL (0.0-9.2)
[2023-09-27 12:09] LABS: Anti-Centromere B Ab <0.2 AI (0.0-0.9); Anti-Chromatin 0.2 AI (0.0-0.9); Anti-Jo <0.2 AI (0.0-0.9); Anti-Scleroderma-70 AB <0.2 AI (0.0-0.9); Anti-dsDNA Ab <1 IU/mL (0-9); RNP Ab <0.2 AI (0.0-0.9); SJOGREN'S Anti-SS-A test < 0.2 AI (0.0-0.9); SJOGREN'S Anti-SS-B test < 0.2 AI (0.0-0.9); Smith Ab <0.2 AI (0.0-0.9)
== END | disposition home or self-care (01) ==
LOC: LAB 08:14
PROVIDERS: Internal Medicine; Referring Provider Internal Medicine Gastroenterology; Visit Provider Internal Medicine Gastroenterology
DX: K25.9 Gastric ulcer, unspecified as acute or chronic, without hemorrhage or perforation (principal); K76.0 Fatty (change of) liver, not elsewhere classified
CPT/HCPCS: 36415; 80053; 82105; 82306; 82977; 83615; 85025; 85610; 85652; 86140; 86225; 86235

== ENCOUNTER → 2023-10-04 | Outpatient (CLI) | payer MEDICAID, SELFPAY ==
--- NOTE | 2023-10-04 09:17 | US_ITS ---
STUDY: ABDOMINAL ULTRASOUND - RIGHT UPPER QUADRANT; ELASTOGRAPHY REASON FOR VISIT: Female, 58 years old. NAFLD. Possible PBC TECHNIQUE: Ultrasound evaluation of the right upper quadrant was performed with real-time and static pardo-scale imaging. Point quantification shear wave elastography was performed (WebPT). TECHNICAL QUALITY: Adequate. COMPARISON: Comparison is made with prior study dated March 06, 2023. FINDINGS: Liver: The liver is mildly enlarged and measures 18.1 cm. There is increased echogenicity consistent with fatty infiltration. The bile ducts are within normal limits. There is hepatic color flow. The direction of portal flow is hepatopetal. There is no demonstrated mass lesion. Median liver stiffness measured 9 kPa. Gallbladder: Normal distended gallbladder. The gallbladder wall measures 2.3 mm. There is a negative sonographic Dias''s sign. There is no pericholecystic fluid. There are no gallstones. Findings suggestive of adenomyomatosis of the gallbladder. Common Bile Duct (C.B.D.): The common bile duct measures 8.5 mm. Pancreas: There is normal echogenicity of the visualized pancreas. There is no demonstrated pancreatic mass or cyst. Right Kidney: Normal size of the right kidney. The right kidney measures 10.8 cm x 5.1 cm x 4.4 cm. Normal renal cortex. The right cortex measures 1.4 cm. There is no demonstrated renal mass or cyst. There is no right hydronephrosis. US/ABD Limited w/ Elastography IMPRESSION: 1. Liver stiffness measures 9 kPa compatible with F2-F3 (Mild to moderate liver fibrosis) Metavir score. Electronically Signed: Clint Melchor MD at 13:29 EST ,
== END | disposition home or self-care (01) ==
LOC: US 09:11
PROVIDERS: Referring Provider Internal Medicine; Visit Provider Internal Medicine
DX: K74.00 Hepatic fibrosis, unspecified (principal)
CPT/HCPCS: 76705; 76981

== ENCOUNTER 2023-10-24 06:34 | Day surgery (SDC) | payer MEDICAID, SELFPAY ==
[2023-10-24 07:15] VITALS: BP 111/59; PULSE 71; RESP 16; TEMP 36.1; O2SAT 97; BMI 31.0
[2023-10-24] MEDS: Lactated Ringers 1,000 ML 15 ML IV (07:19)
--- NOTE | 2023-10-24 07:45 | HP.PCM_ITS ---
History and Physical Date of Admission: 10/24/23 58 F who presents to the office today for follow up. BGI established 3.1.22 for chronic diarrhea. She requires Depends and bed pads for urinary and fecal incontinence. She takes one loperamide when stool is liquid; if she still has diarrhea the next day then she again takes one loperamide; usually has to take one pill daily x 5 days in order to have formed stools; she stops taking it until stool is again liquid, which is usually about 5 days later. She has been doing this regimen since 2017. No prior evaluation for diarrhea. Abd gets distended but no gas. Denies cramping. Mild pain intermittently lower abd. No nausea, vomiting, acid reflux, heartburn, dysphagia. No hematochezia or melena. Stool was negative for occult blood in 11/2021. No prior EGD or colonoscopy She reports a small capacity bladder. She has mixed urinary incontinence. 11/2021 stool tests negative for enteric pathogens, O&P 11/2021 normal TSH, hgb 12.6 08/2021 esr 18, crp 6.9, protein and globulin elevated CT abd/pel w/contrast 3.9.22- No acute or inflammatory disease or bowel obstruction. OV 3.17.22- Sl elevated IgM, may be reactive, can recheck later. Slight elevation ast and alt. CRP is elevated. Negative stool calprotectin. Neg celiac disease. Neg JO ANN-Comprehensive. Normal gastrin level. Her glucose was elevated. She has made changes in her diet, cutting out sweets, drinking more water. She would like to keep making improvements in diet and then check hgb a1c to determine if she has DM. EGD 04.11.22- Grade B reflux, non- bleeding gastric and duodenal ulcers, granualr gastric mucosa- minimal nonspecific chronic inflimation, suggestive of morgan's gland Colon- 04.11.22- one polyp in cecum, congested mucosa- hyperplastic polyp OV 6.8.22- Since her endoscopies she has stopped eating by 7 pm, goes to bed at 10 pm. Was getting acid reflux when lying down, that has improved. No dysphagi a. Some abdominal bloating. No cramping or abdominal pain. No nausea, vomiting. No hematochezia or melena. Stool was negative for occult blood in 11/2021. Rx Pantoprazole and Sucralfate. 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 She did take sucralfate. She is taking lots of TUMS but that isn't sufficiently controlling her symptoms. Uses Imodium much less often for diarrhea. Order Liver elastography, work on getting Omeprazol US abd/elastography 07.10.22- liver measures 17.8cm 9.3kPa OV 9.- It turns out she still hasn't been able to get PPI. She is taking sucralfate prn, finds it helps with diarrhea and epigastric pain and reflux. She has much less diarrhea--stool is almost always solid now. Hasn't needed to use Imodium. Biochemical w/u revealed elevated AMA, elevated GGT, normal alk phos. She is seeing a new neurosurgeon for her chronic back pain/neuropathy. Could not tolerate Ursodiol BID dosing caused her to have worse myalgias/arthralgias. Possible PBC--elevated AMA. GGT 119. nl alk phos. crp 5. a1c 6.1. 06/2022 liver elastography: 9.3 kPa, F2-F3. OV 4.19.23- Reports acid reflux if overeats. No bowel complaints today. Now takes Omeprazole. No dysphagia. Update labs. Contact 03.05.23 Positive AMA (160) but negative alk phos, elevated GGT US elastography 03.06.23- 8.8kPa OV 11.6.23 Pt continues to take Ursodiol, Vitamin E and Omeprazole 40mg BID. C/o itching mostly in front and back of abdomen but not legs and arms. Has been out of Sucralfate which says helps most with her heartburn. Has daily bloating and abdominal cramping before a BM. Usually goes once a day. Sometimes has diarrhea but takes OTC anti-diarrhea which is helpful. Follow Dr. Blount for nerve injections and buring nerve endings in cervical spine and lower lubmar spine. ROS Const Constitutional: Positive for fatigue, frequent falls, headache(s) and weakness ENT ENT: Positive for headache(s); No difficulty swallowing Cardio Cardiology: Positive for leg pain with exertion Gastro GI: Positive for abdominal pain, bloating, diarrhea, heartburn, excessive flatus and nausea/dyspepsia; No belching, change in bowel habits, change in stool character, coffee ground emesis, constipation, cramping, difficulty swallowing, feeling full early, incontinent of stools, Vomiting blood/hematemesis, Blood in stool, loose stools, Black,tarry stools, pain with swallowing, vomiting or other Musc Musculoskeletal: Positive for abnormal gait, joint pain, back pain, joint swelling, muscle cramps, muscle weakness, numbness, stiffness, tingling, Arthritis, sciatica, restless legs, leg pain at night and leg pain with exertion Skin Skin: No yellowing of the eye or itchy eyes Neuro Neurology: Positive for abnormal gait, weakness, frequent falls, headache(s), numbness, tingling, restless legs and paralysis Psych Psychiatric: Positive for anxiety, Positive for depression and Positive for inattentiveness Endo Endocrine: Positive for fatigue Aller/Imm Allergy/Immunologic: No itchy eyes Helder/Lymp Hematologic/Lymphatic: No easy bleeding or easy bruising Exam Const General: cooperative, no acute distress and well developed Nutritional Appearance: average body habitus Orientation: alert, awake and oriented x3 HENMT Head: normocephalic and atraumatic Nose: external nose normal Face and sinus: normal facial exam Mouth: moist mucous membranes Eyes Pupils: PERRL EOM: EOM intact bilaterally Neck Neck: normal visual inspection, no meningeal signs and trachea midline Carotids: no bruits Chest Chest palpation & inspection: normal inspection of the chest Resp Effort & Inspection: normal respiratory effort and symmetric chest movement Auscultation: Bilateral: Clear to Auscultation Cardio Palpation: normal PMI Rate: regular rate Rhythm: regular rhythm Heart Sounds: S1 normal and S2 normal GI Auscultation: normal bowel sounds Percussion: normal to percussion Palpation: soft, no hepatosplenomegaly and no guarding Other: Non tender nondistended. Liver not enlarged. Spleen not palpable. General: bimanual renal exam normal bilaterally, bladder normal to inspection and bladder normal to palpation Bimanual Exam- Vagina & Uterus: bladder normal to palpation Musc Musculoskeletal: Yes joint tenderness and decreased range of motion; No joint redness or joint warmth Thoracic/Lumbar Spine: thor and lumb spine abnorm to inspection Other: Patient has decreased range of motion of the cervical spine and lumbar spine. Uses wheeled walker for mobility. Limited. Cooperative. Skin General: rashes and/or lesions noted, turgor normal and no erythema Wounds: wound noted Neuro General: patient alert, patient awake, patient oriented x3 and no focal motor deficits Speech: speech normal Motor: muscle tone normal throughout Extrem General: normal exam except as noted Psych Appearance: grossly normal Mood: congruent mood Affect: normal affect Attitude: cooperative Quality Reporting Tobacco Screening ([facility] 138) Smoking Status: Former smoker Assessment and Plan Assessment and Plan (1) NAFLD (nonalcoholic fatty liver disease): Status: Chronic Plan: Liver chemistry from February 2023 reviewed. ALT AST and alkaline phosphatase normal, total bili normal. GGT 119 from 07/17/2022. AMA 160 on February 2023. Patient has itching over the abdominal front abdomen but not diffuse. I felt its more along the overlap of his skin. Anti-smooth muscle antibody normal. Atypical p-ANCA 1:20 There is possibility of alkaline phosphatase negative PBC although it is rare. Possibility of overlap PBC with mixed metabolic disease. Option of liver biopsy was discussed but currently last liver chemistry normal albumin 4.0 and elastography 8.8 kPa. Therefore, risk-benefit analysis favors suggest following without liver biopsy. Labs ordered. Right upper quadrant sonogram with elastography was ordered as the last one was in February 2022. Patient agreed to try ursodiol 50 mg twice daily. (2) GERD (gastroesophageal reflux disease): Status: Chronic Qualifiers: Esophagitis presence: with esophagitis Esophagitis bleeding: without hemorrhage Qualified Code(s): K21.00 - Gastro-esophageal reflux disease with esophagitis, without bleeding Plan: Plan to continue PPI. Patient's diarrhea is better. Advised to take [id number] lactobacillus. (3) Gastric ulcer: Status: Acute Qualifiers: Gastric ulcer chronicity: chronic Gastric ulcer complication status: with both hemorrhage and perforation Qualified Code(s): K25.6 - Chronic or unspecified gastric ulcer with both hemorrhage and perforation Plan: Plan to continue PPI and sucralfate. Sucralfate refilled. We will plan for repeat EGD. I have examined the patient and the H&P has been reviewed. There are no clinical changes since date of exam.
--- NOTE | 2023-10-24 08:00 | EGD_PTH ---
PATIENT: SHELLIE HOWELL LOC: EN U#:[id number] AGE/SX: 58/F ROOM: RE10/24/[address]: Dr. Howie Fontaine DO : 1965 BED: DIS: 10/24/2023 SPEC #: [id number] RECD: 10/24/23 10:45 STATUS: MIKAYLA BRODERICK #: [id number] ONUR: 10/24/23 08:[address]: Howie Fontaine DEPT: SURGICAL PATHOLOGY RECD BY: April Lea ENTERED: 10/24/23 10:45 SP TYPE: EGD BIOPSY OTHR DR: Trish [facility] Tissues: A - Duodenum, NOS B - Gastric mucous membrane C - Esophageal mucous membrane Procedures: Special Stain Group II Surgery Specimen Level IV Alcian Blue/PAS (control) HEADER OPERATION: EGD with biopsy PRE-OP DIAGNOSIS: NAFLD, GERD, gastric ulcer TISSUE SUBMITTED: A - Duodenum biopsy, B - Gastric antrum biopsy, C - Distal esophagus biopsy MICROSCOPIC DIAGNOSIS A. Duodenum, biopsy: Gastric metaplasia. Mild nonspecific chronic inflammation. B. Gastric antrum, biopsy: Chronic gastritis. See comment. C. Distal esophagus, biopsy: Gastroesophageal junctional mucosa with mild chronic inflammation. No evidence of goblet cell metaplasia. See comment. AM:danielito 10/25/2023 COMMENT B. The results of immunohistochemistry for Helicobacter pylori will be reported separately ([id number]). C. Alcian blue/PAS stain with matched control supports the above diagnosis. MICROSCOPIC DESCRIPTION Slides are reviewed. GROSS DESCRIPTION A - Received in fixative is one container labeled with the patient's name and designated duodenum biopsy. The specimen consists of two irregular fragments of light morocho soft tissue that in aggregate measure 0.8 x 0.5 x 0.1 cm. The specimen is totally submitted in one cassette. B - Received in fixative is one container labeled with the patient's name and designated gastric antrum. The specimen consists of multiple irregular fragments of light morocho soft tissue that in aggregate measure 1.0 x 0.3 x 0.1 cm. The specimen is totally submitted in one cassette. C - Received in fixative is one container labeled with the patient's name and designated distal esophagus. The specimen consists of multiple irregular fragments of light morocho soft tissue that in aggregate measure 1.0 x 0.5 x 0.1 cm. The specimen is totally submitted in one cassette. / AM:danielito 10/24/2023 TC:3 CPT: 32073 x3, 30045
--- NOTE | 2023-10-24 08:00 | IMM_PTH ---
PATIENT: SHELLIE HOWELL LOC: EN U#:[id number] AGE/SX: 58/F ROOM: RE10/24/[address]: Dr. Howie Fontaine DO : 1965 BED: DIS: 10/24/2023 SPEC #: [id number] RECD: 10/24/23 14:24 STATUS: MIKAYLA VILLAFANA #: [id number] ONUR: 10/24/23 08:[address]: Howie Fontaine DEPT: IMMUNOHISTOCHEMISTRY RECD BY: Radha Drake ENTERED: 10/24/23 14:25 SP TYPE: IMMUNO OTHR DR: Trish [facility] Tissues: B - Stomach, NOS Procedures: H Pylori (initial) PHYSICIAN & INSTITUTION [place] [id number] SPECIMEN INFORMATION: Tissue Source: B - Gastric antrum Clinical Info: Nonalcoholic fatty liver disease, GERD, gastric ulcer Specimen Number: [id number] CPT code: 02296 METHODOLOGY: Deparaffinized sections of prefer/formalin-fixed tissue or PAP/DQ stained slides are incubated with monoclonal/polyclonal antibodies/oligonucleotide probes. Localization is made via biotin free immunoperoxidase method. Appropriate controls are performed and reacted as expected. Results on target cell population are indicated in the following table: RESULTS: ANTIBODY / CLONE RESULT Block B H Pylori (polyclonal) negative These tests were developed and their performance characteristics determined by [facility]. They may not have been cleared or approved by the U.S. Food and Drug Administration. The FDA has determined that such clearance or approval is not necessary. The above immunohistochemical/dualISH markers are ordered and reviewed by the Pathologist. INTERPRETATION: B. Gastric antrum, biopsy: Negative for Helicobacter pylori organisms. AM:danielito 10/25/2023
[2023-10-24 08:05] VITALS: BP 111/59; BP 121/66; PULSE 70; RESP 16; TEMP 36.1; O2SAT 97
[2023-10-24 08:10] VITALS: BP 111/59; BP 125/75; PULSE 71; RESP 16; O2SAT 96
[2023-10-24 08:16] VITALS: BP 111/59; BP 126/72; PULSE 69; RESP 16; TEMP 36.1; O2SAT 98
--- NOTE | 2023-10-24 08:21 | OP.CCLET_ITS ---
10/24/2023 Trish Benton [facility] Re : Upper GI endoscopy [facility] This procedure was performed on Tuesday, October 24, 2023. My impressions and recommendations are as follows: Impressions : - Z-line irregular, 39 cm from the incisors. Biopsied. - Erythematous mucosa in the gastric body. Biopsied. - Chronic duodenitis. Biopsied. Recommendations : - Discharge patient to home. - Resume previous diet. - Continue present medications. - Await pathology results. My findings are described in the full procedure note, which is enclosed. If I can be of further assistance, please feel free to contact me at . Sincerely, Howie Fontaine, 10/24/2023 8:21:04 AM This report has been signed electronically.
--- NOTE | 2023-10-24 08:21 | OP.EGD_ITS ---
Patient Name: Petty Dean Procedure Date: 10/24/2023 8:08 AM Date of : 1965 Age: 58 Procedure: Upper GI endoscopy Indications: Functional Dyspepsia, Heartburn Providers: Howie Fontaine DO Referring MD: Howie Fontaine DO Medicines: Monitored Anesthesia Care Patient Profile: This is a 58 year old female. Refer to note in patient chart for documentation of history and physical. Patient has symptoms of chronic dyspepsia and chronic heartburn. Complications: No immediate complications. Procedure: Pre-Anesthesia Assessment: - Prior to the procedure, a History and Physical was performed, and patient medications and allergies were reviewed. The patient is competent. The risks and benefits of the procedure and the sedation options and risks were discussed with the patient. All questions were answered and informed consent was obtained. Patient identification and proposed procedure were verified by the physician in the pre-procedure area. Mental Status Examination: alert and oriented. Airway Examination: normal oropharyngeal airway and neck mobility. Respiratory Examination: clear to auscultation. CV Examination: normal. Prophylactic Antibiotics: The patient does not require prophylactic antibiotics. Prior Anticoagulants: The patient has taken no anticoagulant or antiplatelet agents. ASA Grade Assessment: II - A patient with mild systemic disease. After reviewing the risks and benefits, the patient was deemed in satisfactory condition to undergo the procedure. The anesthesia plan was to use monitored anesthesia care (MAC). Immediately prior to administration of medications, the patient was re-assessed for adequacy to receive sedatives. The heart rate, respiratory rate, oxygen saturations, blood pressure, adequacy of pulmonary ventilation, and response to care were monitored throughout the procedure. The physical status of the patient was re-assessed after the procedure. After obtaining informed consent, the endoscope was passed under direct vision. Throughout the procedure, the patient's blood pressure, pulse, and oxygen saturations were monitored continuously. The gastroscope was introduced through the mouth, and advanced to the second part of duodenum. The upper GI endoscopy was accomplished without difficulty. The patient tolerated the procedure well. Scope In: 7:52:42 AM Scope Out: 7:57:12 AM Total Procedure Duration Time 0 hours 4 minutes 30 seconds Findings: The Z-line was irregular and was found 39 cm from the incisors. Biopsies were taken with a cold forceps for histology. Verification of patient identification for the specimen was done. Estimated blood loss was minimal. Patchy mildly erythematous mucosa without bleeding was found in the gastric body. Biopsies were taken with a cold forceps for histology. Verification of patient identification for the specimen was done. Estimated blood loss was minimal. Biopsies were taken with a cold forceps for Helicobacter pylori testing. Verification of patient identification for the specimen was done. Estimated blood loss was minimal. Patchy mild inflammation characterized by erosions and erythema was found in the duodenal bulb. Biopsies were taken with a cold forceps for histology. Verification of patient identification for the specimen was done. Estimated blood loss was minimal. Impression: - Z-line irregular, 39 cm from the incisors. Biopsied. - Erythematous mucosa in the gastric body. Biopsied. - Chronic duodenitis. Biopsied. Recommendation: - Discharge patient to home. - Resume previous diet. - Continue present medications. - Await pathology results. Procedure Code(s): --- Professional --- 84726, Esophagogastroduodenoscopy, flexible, transoral; with biopsy, single or multiple CPT copyright 2021 [employer]. All rights reserved. The codes documented in this report are preliminary and upon older worker specialist review may be revised to meet current compliance requirements. Howie Fontaine DO 10/24/2023 8:21:04 AM This report has been signed electronically. Number of Addenda: 0 Note Initiated On: 10/24/2023 8:08 AM
[2023-10-24 08:32] VITALS: BP 111/59
== END 2023-10-24 08:47 | disposition home or self-care (01) ==
LOC: EN 06:35 → AC 06:36
PROVIDERS: Referring Provider Internal Medicine Gastroenterology; Visit Provider Internal Medicine Gastroenterology
PROC: 0DJ08ZZ Inspection of Upper Intestinal Tract, Via Natural or Artificial Opening Endoscopic (ICD-10-PCS; CPT 43235; principal; 2023-10-24 07:55)
DX: K31.A0 Gastric intestinal metaplasia, unspecified (principal); K25.6 Chronic or unspecified gastric ulcer with both hemorrhage and perforation; K76.0 Fatty (change of) liver, not elsewhere classified; Z87.891 Personal history of nicotine dependence; K29.80 Duodenitis without bleeding; K21.00 Gastro-esophageal reflux disease with esophagitis, without bleeding; K29.50 Unspecified chronic gastritis without bleeding; Z79.899 Other long term (current) drug therapy; I10 Essential (primary) hypertension; Z87.19 Personal history of other diseases of the digestive system
CPT/HCPCS: 43239; 88305; 88313; 88342; J7120; J2405

== ENCOUNTER → 2024-04-22 | Outpatient (CLI) | payer MEDICAID, SELFPAY ==
[2024-04-22 18:27] LABS: Hematocrit 39.3 % (37-47); Hemoglobin 12.8 g/dL (12.0-15.0); Mean Corp Hgb Conc 32.6 g/dL (32-36); Mean Corpuscular Hgb 30.4 pg (27.0-32.0); Mean Corpuscular Volume 93.3 fL (81-99); Mean Platelet Vol. 12.6 fl (6.2-12.0); Platelet Count 281 K/mm3 (150-450); RBC Distribution Width CV 13.5 % (11.6-14.6); Red Blood Count 4.21 M/mm3 (4.2-5.4); White Blood Count 6.8 K/mm3 (4.4-11.0)
[2024-04-22 19:06] LABS: Hemoglobin A1c 5.7 % (3.8-5.6)
[2024-04-22 19:17] LABS: ALB/GLOB Ratio 1.1 RATIO (0.9-2.4); AST(SGOT) 28 U/L (15-37); Alanine Aminotransfer ALT/SGPT 39 U/L (13-56); Alkaline Phosphatase 97 U/L (45-117); Anion Gap 7 (5-15); BUN 16 mg/dL (7-18); BUN/Creat Ratio 18.8 RATIO (10-20); Calcium,Total 9.4 mg/dL (8.5-10.1); Chloride 108 mmol/L (98-107); Cholesterol 195 mg/dL (200); Creatinine, Serum 0.85 mg/dL (0.55-1.02); EST Glomerular Filtration Rate 73 mL/min (>60); Est Glom Filt Rate - Afr Amer 88 mL/min (>60); Globulin 3.6 g/dL (2.2-4.2); Glucose 100 mg/dL (74-106); High Density Lipoprotein 46 mg/dL; Potassium 4.2 mmol/L (3.5-5.1); Protein, Total 7.6 g/dL (6.4-8.2); Sodium Level 141 mmol/L (136-145); Thyroid Stim Hormone (TSH) 3.09 uIU/mL (0.358-3.74); Triglycerides 395 mg/dL; Very Low Density Lipoprotein 79 mg/dL (5-40)
== END | disposition home or self-care (01) ==
PROVIDERS: Visit Provider Nurse Practitioner Family
DX: K76.0 Fatty (change of) liver, not elsewhere classified (principal); I10 Essential (primary) hypertension; E66.3 Overweight
CPT/HCPCS: 36415; 80053; 80061; 83036; 84443; 85027

== ENCOUNTER → 2024-08-14 | Outpatient (CLI) | payer OTHER, SELFPAY ==
--- NOTE | 2024-08-14 09:55 | US_ITS ---
STUDY: ABDOMINAL ULTRASOUND - RIGHT UPPER QUADRANT; ELASTOGRAPHY REASON FOR VISIT: Female, 59 years old. NAFLD TECHNIQUE: Ultrasound evaluation of the right upper quadrant was performed with real-time and static pardo-scale imaging. Point quantification shear wave elastography was performed ([employer]). TECHNICAL QUALITY: Adequate. COMPARISON: Comparison is made with prior study dated October 04, 2023. FINDINGS: Liver: The liver is enlarged measures 18.2 cm. There is increased echogenicity consistent with fatty infiltration. The bile ducts are within normal limits. There is hepatic color flow. The direction of portal flow is hepatopetal. There is no demonstrated mass lesion. Median liver stiffness measured 8.2 kPa. Gallbladder: Normal distended gallbladder. The gallbladder wall measures 2 mm. There is a negative sonographic Dias''s sign. There is no pericholecystic fluid. There are no gallstones. There is evidence of adenomyomatosis of the gallbladder. Common Bile Duct (C.B.D.): The common bile duct measures 6 mm. Pancreas: There is normal echogenicity of the visualized pancreas. There is no demonstrated pancreatic mass or cyst. Right Kidney: Normal size of the right kidney. The right kidney measures 10.4 cm x 5.6 cm x 3.7 cm. Normal renal cortex. The right cortex measures 1.2 cm. There is no demonstrated renal mass or cyst. There is no right hydronephrosis. US/ABD Limited w/ Elastography IMPRESSION: 1. 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 Electronically Signed: Clint Melchor MD at 8:03 EDT ,
== END | disposition home or self-care (01) ==
LOC: US 09:51
PROVIDERS: Referring Provider Student in an Organized Health Care Education/Training Program; Visit Provider Student in an Organized Health Care Education/Training Program
DX: K76.0 Fatty (change of) liver, not elsewhere classified (principal)
CPT/HCPCS: 76705; 76981

== ENCOUNTER 2024-09-08 06:20 | Day surgery (SDC) | payer MEDICARE, SELFPAY ==
[2024-09-08] VITALS (7 sets, daily range): BP systolic 125–142; BP diastolic 66–82; PULSE 64–72; RESP 16–20; TEMP 36.1–36.3; O2SAT 93–99; BMI 29.1
--- NOTE | 2024-09-08 06:35 | PCM.PRE.AN2 ---
ASA Classification* ASA Classification ASA Classification: 2 Assessment & Plan Anesthesia* Anesthesia Assessment Anesthesia Assessment: Discussed sedation and/or anesthesia options, risks, benefits, and alternatives with patient/parents/legal guardian/POA. Questions invited. The patient/parents/legal guardian/POA seems to understand and agrees to proceed with anesthesia plan. Reviewed the physical assessment, medical history, allergy history and patient home medications list prior to surgery/procedure/anesthetic and documented any changes. Performed airway and anesthesia risk assessments. Anesthesia Type Anesthesia Type: MAC (see written pre anesthesia record for full assessment) Anesthesia Focused Assessment* Airway Assessment Mouth opens: >3 cm Mallampati Score: II Focused Labs Anesthesia Preop lab: CBC WBC 6.8 K/mm3 (4.4-11.0) 04/22/24 14:20 RBC 4.21 M/mm3 (4.2-5.4) 04/22/24 14:20 Hgb 12.8 g/dL (12.0-15.0) 04/22/24 14:20 Hct 39.3 % (37-47) 04/22/24 14:20 Plt Count 281 K/mm3 (150-450) 04/22/24 14:20 CHEMISTRY Potassium 4.2 mmol/L (3.5-5.1) 04/22/24 14:20 Sodium 141 mmol/L (136-145) 04/22/24 14:20 BUN 16 mg/dL (7-18) 04/22/24 14:20 Creatinine 0.85 mg/dL (0.55-1.02) 04/22/24 14:20 Glucose 100 mg/dL (74-106) 04/22/24 14:20 TSH 3.09 uIU/mL (0.358-3.74) 04/22/24 14:20 COAG PT 12.6 SECONDS (11.7-14.9) 09/24/23 08:20 Pre-Assessment Diagnosis/Proposed Procedure Planned Operative Procedure(s): RIGHT LUMBAR RADIOFREQUENCY ABLATION AT MEDIAL BRANCH L3,L4,L5 Anesthesia History Anesthesia History - media relations associate: Anesthesia History - media relations associate Hx Hospitalization No 09/03/24 12:16 Any Problems With Anesthesia No 09/03/24 12:16 Cholinesterase deficiency No 09/03/24 12:16 You/Your Family Experience No 09/03/24 12:16 fever (hyperthermia) with Relationship Recent Exposure to Contagious No 10/24/23 07:15 Disease Does patient have nerve No 09/03/24 12:16 stimulator Patient instructed to have device shut off --Does patient have Pacemaker or ICD? When Was Last Pacemaker Check QUESTION #4 FULL TEXT: You/Your Family Experience fever (hyperthermia) with Anesthesia Last Oral Intake Last Oral intake: Last Oral Intake NPO since Meds taken in AM with sips of water? Meds patient instructed to take am of surgery PONV PONV - media relations associate: PONV - media relations associate Female Yes 09/03/24 12:16 HX of Motion Sickness No 09/03/24 12:16 HX of N/V After Surgery No 09/03/24 12:16 Non-Smoker Yes 09/03/24 12:16 Duration of Surgery greater No 09/03/24 12:16 than 60 minutes Number of Risk Factors 2 09/03/24 12:16 PONV Score Moderate Risk 09/03/24 12:16 Height & Weight Height & Weight: Anesthesia: Height & Weight Height 5 ft 4 in 12/17/23 12:16 Respiratory Assessment Respiratory Assessment - media relations associate: Respiratory Tract Infection Hx - media relations associate Hx Respiratory Tract Infection Yes: COLD/NO FEVER/COVID 09/03/24 12:16 TEST NEGATIVE STOP Sleep Apnea STOP Sleep Apnea - media relations associate: STOP Sleep Apnea - media relations associate Hx Hypertension Yes: CONTROLLED WITH MED 09/03/24 12:16 Hx Sleep Apnea No 09/03/24 12:16 CPAP BIPAP Do you snore loudly (louder No 09/03/24 12:16 than talking or can be heard Do you often feel tired/ Yes 09/03/24 12:16 fatigued/ sleepy during daytime? Has anyone observed you stop No 09/03/24 12:16 breathing during sleep? STOP Results Positive 09/03/24 12:16 QUESTION #5 FULL TEXT : Do you snore loudly (louder than talking or can be heard through closed doors)? 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 Specify any problems Hx of Preganancy in last 3 No 09/03/24 12:16 Months Nurse Filling Out Transfusion DSCHRIBER 09/03/24 12:16 & Questions: Date: 09/03/24 09/03/24 12:16 Time: 12:09/03/24 12:16 Patient unable to answer at this time (ie. confused, unrespo /Reproduction History /Reproductive History - media relations associate: /Reproductive Hx- media relations associate Hx Now No 09/03/24 12:16 Gestational Age (in weeks): EDC: Hx Hx Para Hx Section SAB No 09/03/24 12:16 PFSH Medical History Post-menopausal Anemia Cirrhosis Fatty liver Neuropathy Restless legs DDD (degenerative disc disease) History of ulceration Incontinence History of IBS Gastric reflux Leg cramps History of edema Hypertension Pain Constipation Arthritis Walker as ambulation aid Ambulates with cane Bladder disease Back pain Former smoker History of pain when walking History of irregular heartbeat Heart murmur after rheumatic heart disease Home Medications ?Medication ?Instructions ?Recorded ?Last Taken ?Type acetaminophen 500 mg tablet 1,000 mg PO Q6H PRN pain 10/03/21 Unknown History (Tylenol Extra Strength) cyclobenzaprine 10 mg tablet 10 mg PO QHS PRN muscle spasm 04/10/22 Unknown History lisinopril 5 mg tablet 10 mg PO DAILY 02/26/23 10/24/23 History lactobacillus combination no.9 4 4,000 mmu cells PO DAILY 10/22/23 Unknown History billion cell capsule (Adult 50 Plus Probiotic) ursodiol 500 mg tablet 500 mg PO BID #60 tabs 01/29/24 Unknown Rx cholecalciferol (vitamin D3) 1,250 1,250 mcg PO QWEEK 6 weeks #6 tabs 04/10/24 Unknown Rx mcg (50,000 unit) tablet omeprazole 40 mg capsule,delayed 40 mg PO DAILY 3 months #90 caps 08/04/24 Unknown Rx release sucralfate 1 gram tablet 1 g PO QACHS stomach ulcers #120 08/04/24 Unknown Rx tabs vitamin E (dl, acetate) 180 mg 180 mg PO BID #180 caps 08/04/24 Unknown Rx (400 unit) capsule metformin 500 mg tablet 500 mg PO BID #60 tabs 08/26/24 Unknown Rx gabapentin 100 mg capsule 100 mg PO BID nerve damage 09/03/24 Unknown History gabapentin 100 mg capsule 300 mg PO QHS 09/03/24 Unknown History Allergy/AdvReac Type Severity Reaction Status Date / Time epinephrine Allergy Severe Anaphylaxis Verified 09/03/24 12:13 venom-honey bee Allergy Severe Anaphylaxis Verified 09/03/24 12:13 tioconazole (From Monistat 1 Allergy Intermediate vaginal Verified 09/03/24 12:13 (tioconazole)) swelling latex Allergy Hives Verified 09/03/24 12:13 Family History Father Diabetes Cancer Mother Hypertension Cancer Carotid stenosis Surgical History History of esophagogastroduodenoscopy (EGD) Hx of colonoscopy with polypectomy History of eye surgery S/P LASIK surgery of both eyes H/O laparoscopy History of appendectomy Social History household members: other details: pet dog housing: house pets and animals: Yes Smoking Status: Former smoker alcohol intake: current alcohol intake frequency: holidays/special occasions only Alcohol type: wine what type of physical activity do you participate in: walking do you feel safe at home: Yes Review of Systems (Anesthesia) ROS Narrative System reviewed and no additional complaints, except as documented.
--- NOTE | 2024-09-08 08:00 | RAD_ITS ---
INDICATION: RADIO FREQUENCY ABLATION L3,L4,L5 EXAMINATION/TECHNIQUE: X-RAY - XR Spine Lumbar 2 or 3 Views COMPARISON: FINDINGS: Views of the lumbar spine were obtained during procedure for ablation. Images were obtained for documentation. Fluoroscopy time: 21.4 seconds. Number of fluoroscopic images: 11 Radiation dosage: 5.09 mGy. RAD/Lumbar Spine 2 or 3 Views IMPRESSION: Intraprocedural exam as described above. Electronically Signed: Ian Grant MD at 13:28 EDT ,
[2024-09-08] MEDS: MethylPREDNISolone Acetate 40 MG/ML Vial (08:07)
[2024-09-08] MEDS: Lidocaine 1% (30 ml sdv) 30 ML Vial (08:09)
[2024-09-08] MEDS: Bupivacaine 0.25% 30 ML Vial (08:10)
--- NOTE | 2024-09-08 08:23 | PCM.OPRPT ---
Report of Operation Date of Procedure: 09/08/24 Pre-Operative Diagnosis: Lumbosacral spondylosis, lumbosacral degenerative disc disease, lumbar facet arthropathy Post-Operative Diagnosis: Lumbosacral spondylosis, lumbosacral degenerative disc disease, lumbar facet arthropathy Surgery/Procedure Performed:: Right-sided lumbar radiofrequency ablation of the medial branch L3, L4, L5 Type of Anesthesia: MAC Estimated Blood Loss (mL): Minimal Description of Procedure: History and physical today was reviewed. Risks and benefits of procedure explained. The patient understood, agreed to the procedure and informed consent was obtained. IV inserted per routine protocol. The patient was taken to the operating room, placed in the prone position with a pillow positioned underneath the abdomen. The right side of the lower back was prepped and draped in a sterile fashion using iodine x 3. Under fluoroscopy guidance, on an oblique view, the L3 through S1 vertebral bodies were visualized. The skin and subcutaneous tissue was anesthetized with approximately 10 mL of 1% lidocaine using a 25-gauge regular needle. Under direct visualization with fluoroscopy at approximately 25-degree angle, starting on the right L3, ending on the right S1 passing through the L4-L5 using a 20-gauge 15 cm with a 10 mm curved active tip radiofrequency ablation needle the needle passed through the skin. The tip of the needle was maneuvered and directed towards the superior and medial gutter of the transverse process at the vicinity of the medial branch. Once the tip of the needle was in contact with the bone, the needle pulled approximately 2 mm up the bone. The stylet of each needle was then removed. After negative aspiration of blood with CSF and confirmation of AP as well as oblique view, radiofrequency ablation probe was then inserted at each level. Impedance was then recorded at L3 to be 231, at L4 283, at L5 201, at S1 344 ohm. Motor-evoked potential was then initiated to 1.5 volt without any motor response at each corresponding level. The probe was then removed intact and a total of 6 mL preservative-free 1% lidocaine was injected in divided doses between those 4 levels after negative aspiration of blood with CSF. The radiofrequency ablation probe was then reinserted after confirmation of AP, oblique as well as lateral view. Radiofrequency ablation was then initiated to 80 degrees Celsius for 90 seconds at each level. Once concluded, the probe was then removed intact and a total of 6 mL of preservative-free 0.25% Marcaine with 40 mg Depo-Medrol was injected in divided doses between those 4 levels. The needles were then removed intact. The patient experienced no signs or symptoms of intrathecal, intravascular injection. The patient experienced no paraesthesia. The procedure was completed without any apparent difficulty, any complication. The patient appeared to tolerate well. Sensory as well as motor exam was unchanged from prior to procedure. ASSESSMENT AND PLAN: This is a 59-year-old female with lumbosacral spondylosis, lumbosacral degenerative disc disease, lumbar facet arthropathy, status post right-sided radiofrequency ablation of the medial branch L3 through L5. The patient will continue her current medications. The patient will follow up in approximately 2 weeks for reevaluation. Complications None
--- NOTE | 2024-09-08 08:25 | PCM.POST.ANE ---
Anesthesia: Postop Eval I Current Vital Signs Temperature: 97.3 F Pulse Rate: 64 Blood Pressure: 125/69 Respiratory Rate: 16 Pulse Ox: 98 Oxygen Delivery Method: Room Air Assessment Airway patent: Yes Spontaneous unlabored respirations: Yes Mental status: Asleep nausea: No Vomiting: No Anesthesia Complication: No Fluid Hydration Crystalloid volume administer (ml): 30 Total IV fluid infused: 30 Progress Note Anesthesia document: Postop Eval 1 completed: Yes
--- NOTE | 2024-09-08 08:38 | PCM.POSTANE2 ---
Anesthesia Postop Eval I Sum Postop Eval Completion status Anesthesia document: Postop Eval 1 completed: Yes Anesthesia Postop Eval I Summary Anesthesia Postop Eval I Summary: Anesthesia Postop Eval I: Assessment Summary Airway patent Yes 09/08/24 08:26 [email or web address] Spontaneous unlabored Yes 09/08/24 08:26 [email or web address] respirations Mental status Asleep 09/08/24 08:26 [email or web address] nausea No 09/08/24 08:26 [email or web address] Vomiting No 09/08/24 08:26 [email or web address] Anesthesia Postop Eval I: Fluid Summary Crystalloid volume administer 30 09/08/24 08:26 [email or web address] (ml) Colloids volume administered ( ml) Blood Product volume administered (ml) Total IV fluid infused 30 09/08/24 08:26 [email or web address] Anesthesia Postop Eval I: Summary Notes Anesthesia Complication No 09/08/24 08:26 [email or web address] Anesthesia Complication Comment: Post-operative progress note Anesthesia: Postop Eval II Evaluation Mental status: Awake Pain Level: 0 nausea: No Vomiting: No
== END 2024-09-08 08:59 | disposition home or self-care (01) ==
LOC: SDC 06:27 → AC 06:28
PROVIDERS: Referring Provider Anesthesiology Pain Medicine; Visit Provider Anesthesiology Pain Medicine
PROC: (CPT 64635; principal; 2024-09-08 07:55)
DX: M47.817 Spondylosis without myelopathy or radiculopathy, lumbosacral region (principal); M51.379 Other intervertebral disc degeneration, lumbosacral region without mention of lumbar back pain or lower extremity pain; I10 Essential (primary) hypertension; Z79.84 Long term (current) use of oral hypoglycemic drugs; Z79.899 Other long term (current) drug therapy; Z87.891 Personal history of nicotine dependence
CPT/HCPCS: 64635; 64636; 01992; 72100; 76000; A4216; J2405

== ENCOUNTER → 2024-10-22 | Outpatient (CLI) | payer MEDICARE, SELFPAY ==
--- NOTE | 2024-10-22 09:02 | BI_ITS ---
MAMMOGRAPHY - BILATERAL SCREENING REASON FOR EXAM: Female, 59 years old. Routine annual screening examination. PERTINENT HISTORY: Mother with breast cancer. TECHNIQUE: Digital bilateral breast melecio (3D mammographic acquisition) in the CC and MLO projections. 2-D mediolateral oblique (MLO) and craniocaudad (CC) views of both breasts were obtained. CAD: Full Field Digital Mammography with Computer Added Detection was performed. COMPARISON: Comparison is made with prior study dated September 03, 2023 and August 31, 2022. FINDINGS: Breast Composition: The breasts are almost entirely fatty. There are no dominant masses or suspicious calcifications. Stable small bilateral axillary lymph nodes. No other significant abnormalities are identified. There has been no significant change since the prior study. BI/SCRN MAMM (CAD)W/MELECIO BILAT IMPRESSION: Stable bilateral screening mammogram. Yearly follow-up mammogram recommended. (A) ASSESSMENT CATEGORY: BIRADS Category 2: Benign. A letter regarding these results will be sent to the patient by the facility within 30 days. Approximately 10% of breast cancers are not detected by mammography. A normal mammogram should not delay biopsy of a clinically suspicious abnormality. [id number] Electronically Signed: Clint Melchor MD at 10:07 EST ,
== END | disposition home or self-care (01) ==
LOC: OPBI 09:00
PROVIDERS: PCP Nurse Practitioner Family; Referring Provider Nurse Practitioner Family; Visit Provider Nurse Practitioner Family
DX: Z12.31 Encounter for screening mammogram for malignant neoplasm of breast (principal); Z80.3 Family history of malignant neoplasm of breast
CPT/HCPCS: 77063; 77067

== ENCOUNTER 2024-11-03 06:58 | Day surgery (SDC) | payer MEDICARE, SELFPAY ==
--- NOTE | 2024-11-03 07:30 | RAD_ITS ---
PROCEDURE: Radiofrequency ablation of the left L3-L4, L4-L5 and L5-S1 levels. DATE OF EXAMINATION: November 03, 2024. INDICATION: Female, 59 years old. Chronic low back pain FLUOROSCOPY TIME (if supplied): (30 seconds) minutes/seconds RAD/Lumbar Spine 2 or 3 Views IMPRESSION: Intraoperative imaging provided for left L3-L4, L4-L5 and L5-S1 radiofrequency ablation. Electronically Signed: Clint Melchor MD at 14:22 EST ,
[2024-11-03 07:39] VITALS: BP 122/51; PULSE 68; RESP 16; TEMP 36.4; O2SAT 96; BMI 29.5
--- NOTE | 2024-11-03 07:40 | PCM.PRE.AN2 ---
ASA Classification* ASA Classification ASA Classification: 3 Assessment & Plan Anesthesia* Anesthesia Assessment Anesthesia Assessment: Discussed sedation and/or anesthesia options, risks, benefits, and alternatives with patient/parents/legal guardian/POA. Questions invited. The patient/parents/legal guardian/POA seems to understand and agrees to proceed with anesthesia plan. Reviewed the physical assessment, medical history, allergy history and patient home medications list prior to surgery/procedure/anesthetic and documented any changes. Performed airway and anesthesia risk assessments. Anesthesia Type Anesthesia Type: MAC Anesthesia Focused Assessment* Airway Assessment Mouth opens: >3 cm Mallampati Score: II Focused Labs Anesthesia Preop lab: CBC WBC 6.8 K/mm3 (4.4-11.0) 04/22/24 14:20 RBC 4.21 M/mm3 (4.2-5.4) 04/22/24 14:20 Hgb 12.8 g/dL (12.0-15.0) 04/22/24 14:20 Hct 39.3 % (37-47) 04/22/24 14:20 Plt Count 281 K/mm3 (150-450) 04/22/24 14:20 CHEMISTRY Potassium 4.2 mmol/L (3.5-5.1) 04/22/24 14:20 Sodium 141 mmol/L (136-145) 04/22/24 14:20 BUN 16 mg/dL (7-18) 04/22/24 14:20 Creatinine 0.85 mg/dL (0.55-1.02) 04/22/24 14:20 Glucose 100 mg/dL (74-106) 04/22/24 14:20 TSH 3.09 uIU/mL (0.358-3.74) 04/22/24 14:20 COAG PT 12.6 SECONDS (11.7-14.9) 09/24/23 08:20 Pre-Assessment Diagnosis/Proposed Procedure Planned Operative Procedure(s): RFA left Anesthesia History Anesthesia History - digital traffic coordinator: Anesthesia History - digital traffic coordinator Hx Hospitalization No 10/06/24 14:52 Any Problems With Anesthesia No 10/06/24 14:52 Cholinesterase deficiency No 10/06/24 14:52 You/Your Family Experience No 10/06/24 14:52 fever (hyperthermia) with Relationship Recent Exposure to Contagious No 09/08/24 06:45 Disease Does patient have nerve No 10/06/24 14:52 stimulator Patient instructed to have device shut off --Does patient have Pacemaker or ICD? When Was Last Pacemaker Check QUESTION #4 FULL TEXT: You/Your Family Experience fever (hyperthermia) with Anesthesia Last Oral Intake Last Oral intake: Last Oral Intake NPO since Meds taken in AM with sips of water? Meds patient instructed to take am of surgery PONV PONV - digital traffic coordinator: PONV - digital traffic coordinator Female HX of Motion Sickness HX of N/V After Surgery Non-Smoker Duration of Surgery greater than 60 minutes Number of Risk Factors PONV Score Height & Weight Height & Weight: Anesthesia: Height & Weight Height 5 ft 4 in 09/08/24 06:45 Respiratory Assessment Respiratory Assessment - digital traffic coordinator: Respiratory Tract Infection Hx - digital traffic coordinator Hx Respiratory Tract Infection Yes: COLD/NO FEVER/COVID 10/21/24 07:45 TEST NEGATIVE STOP Sleep Apnea STOP Sleep Apnea - digital traffic coordinator: STOP Sleep Apnea - digital traffic coordinator Hx Hypertension Yes: CONTROLLED WITH MED 10/06/24 14:52 Hx Sleep Apnea No 10/06/24 14:52 CPAP BIPAP Do you snore loudly (louder than talking or can be heard Do you often feel tired/ fatigued/ sleepy during daytime? Has anyone observed you stop breathing during sleep? STOP Results QUESTION #5 FULL TEXT : Do you snore loudly (louder than talking or can be heard through closed doors)? Tobacco Use History Tobacco Use History - digital traffic coordinator: Tobacco Use History - digital traffic coordinator Tobacco Use Smoking Status Former smoker 10/06/24 14:52 Hx Tobacco Use No 10/06/24 14:52 Years Smoking Packs Smoked per Day Smoking Cessation Date was within the last 15 years Hx Smoking Cessation Date 11/19/18 10/06/24 14:52 Hx Smoking Cessation Counseling Hematologic Medial History Hematologic Hx - digital traffic coordinator: Hematologic Medical Hx - nurse liaison Hx of Blood Transfusion Hx of Transfusion in last 3 Months Date of Last Transfusion (if within last 3 months) Ever experience any problems with transfusion(s)? Specify any problems Hx of Preganancy in last 3 Months Nurse Filling Out Transfusion & Questions: Date: Time: Patient unable to answer at this time (ie. confused, unrespo /Reproduction History /Reproductive History - digital traffic coordinator: /Reproductive Hx- digital traffic coordinator Hx Now Gestational Age (in weeks): EDC: Hx Hx Para Hx Section SAB No 10/06/24 14:52 PFSH Medical History Post-menopausal Anemia Cirrhosis Fatty liver Neuropathy Restless legs DDD (degenerative disc disease) History of ulceration Incontinence History of IBS Gastric reflux Leg cramps History of edema Hypertension Pain Constipation Arthritis Walker as ambulation aid Ambulates with cane Bladder disease Back pain Former smoker History of pain when walking History of irregular heartbeat Heart murmur after rheumatic heart disease Home Medications ?Medication ?Instructions ?Recorded ?Last Taken ?Type acetaminophen 500 mg tablet 1,000 mg PO Q6H PRN pain 10/03/21 09/04/24 History (Tylenol Extra Strength) cyclobenzaprine 10 mg tablet 10 mg PO TID PRN muscle spasm 04/10/22 09/03/24 History cholecalciferol (vitamin D3) 1,250 1,250 mcg PO QWEEK 6 weeks #6 tabs 04/10/24 08/31/24 Rx mcg (50,000 unit) tablet omeprazole 40 mg capsule,delayed 40 mg PO DAILY 3 months #90 caps 08/04/24 09/08/24 Rx release metformin 500 mg tablet 500 mg PO BID #60 tabs 08/26/24 09/07/24 Rx gabapentin 100 mg capsule 100 mg PO BID nerve damage 09/03/24 09/08/24 History gabapentin 100 mg capsule 300 mg PO QHS 09/03/24 Unknown History lisinopril 10 mg tablet 10 mg PO DAILY 10/06/24 Unknown History magnesium 250 mg tablet 400 mg PO DAILY 10/06/24 Unknown History multivitamin (Daily Multi-Vitamin 1 tab PO DAILY 10/06/24 Unknown History tablet) sucralfate 1 gram tablet 1 g PO QACHS PRN stomach ulcers 10/06/24 Unknown History vitamin E (dl, acetate) 180 mg 360 mg PO BID 10/06/24 Unknown History (400 unit) capsule Allergy/AdvReac Type Severity Reaction Status Date / Time epinephrine Allergy Severe Anaphylaxis Verified 11/03/24 07:38 venom-honey bee Allergy Severe Anaphylaxis Verified 11/03/24 07:38 tioconazole (From Monistat 1 Allergy Intermediate vaginal Verified 11/03/24 07:38 (tioconazole)) swelling latex Allergy Hives Verified 11/03/24 07:38 Family History Father Diabetes Cancer Mother Hypertension Cancer Carotid stenosis Surgical History Hx of surgical fusion joint History of esophagogastroduodenoscopy (EGD) Hx of colonoscopy with polypectomy History of eye surgery S/P LASIK surgery of both eyes H/O laparoscopy History of appendectomy Social History household members: other details: pet dog housing: house pets and animals: Yes Smoking Status: Former smoker alcohol intake: current alcohol intake frequency: holidays/special occasions only Alcohol type: wine what type of physical activity do you participate in: walking do you feel safe at home: Yes Review of Systems (Anesthesia) ROS Narrative System reviewed and no additional complaints, except as documented.
[2024-11-03] MEDS: MethylPREDNISolone Acetate 40 MG/ML Vial (10:53)
[2024-11-03] MEDS: Lidocaine 1% (30 ml sdv) 30 ML Vial (10:54)
[2024-11-03] MEDS: Bupivacaine 0.25% 30 ML Vial (10:55)
--- NOTE | 2024-11-03 11:02 | PCM.OPRPT ---
Operative Report (Standard) Operative Information Date of Procedure: 11/03/24 Pre-Operative Diagnosis: 1 Post-Operative Diagnosis: 1 Surgery/Procedure Performed: 1 ward assistant: No Type of Anesthesia: MAC and Topical Anesth RN Documented Start/Stop Times: Operation Date: 11/03/24 08:30 Case Time Into Pre-Op 11/03/24 07:25 Into Room 11/03/24 10:40 Anesthesia Start 11/03/24 10:42 Procedure Start 11/03/24 10:51 Procedure Start Time: 11:02 Procedure Stop Time: 11:02 Select all DRAINS/GRAFTS/IMPLANTS that apply: None Estimated Blood Loss: 1 Specimen collected: No Description of surgery: Pre-Operative Diagnosis: Lumbosacral spondylosis, lumbosacral degenerative disc disease, lumbar facet arthropathy Post-Operative Diagnosis: Lumbosacral spondylosis, lumbosacral degenerative disc disease, lumbar facet arthropathy Surgery/Procedure Performed:: Left-sided lumbar radiofrequency ablation of the medial branch L4, L5, S1 Type of Anesthesia: MAC Estimated Blood Loss (mL): Minimal Description of Procedure: History and physical today was reviewed. Risks and benefits of procedure explained. The patient understood, agreed to the procedure and informed consent was obtained. IV inserted per routine protocol. The patient was taken to the operating room, placed in the prone position with a pillow positioned underneath the abdomen. The left side of the lower back was prepped and draped in a sterile fashion using iodine x 3. Under fluoroscopy guidance, on an oblique view, the L3 through S1 vertebral bodies were visualized. The skin and subcutaneous tissue was anesthetized with approximately 10 mL of 1% lidocaine using a 25-gauge regular needle. Under direct visualization with fluoroscopy at approximately 25-degree angle, starting on the left L3, ending on the left S1 passing through the L4-L5 using a 20-gauge 15 cm with a 10 mm curved active tip radiofrequency ablation needle the needle passed through the skin. The tip of the needle was maneuvered and directed towards the superior and medial gutter of the transverse process at the vicinity of the medial branch. Once the tip of the needle was in contact with the bone, the needle pulled approximately 2 mm up the bone. The stylet of each needle was then removed. After negative aspiration of blood with CSF and confirmation of AP as well as oblique view, radiofrequency ablation probe was then inserted at each level. Impedance was then recorded at L3 to be 202, at L4 282, at L5 253, at S1 263 ohm. Motor-evoked potential was then initiated to 1.5 volt without any motor response at each corresponding level. The probe was then removed intact and a total of 6 mL preservative-free 1% lidocaine was injected in divided doses between those 4 levels after negative aspiration of blood with CSF. The radiofrequency ablation probe was then reinserted after confirmation of AP, oblique as well as lateral view. Radiofrequency ablation was then initiated to 80 degrees Celsius for 90 seconds at each level. Once concluded, the probe was then removed intact and a total of 6 mL of preservative-free 0.25% Marcaine with 40 mg Depo-Medrol was injected in divided doses between those 4 levels. The needles were then removed intact. The patient experienced no signs or symptoms of intrathecal, intravascular injection. The patient experienced no paraesthesia. The procedure was completed without any apparent difficulty, any complication. The patient appeared to tolerate well. Sensory as well as motor exam was unchanged from prior to procedure. ASSESSMENT AND PLAN: This is a 59-year-old female with lumbosacral spondylosis, lumbosacral degenerative disc disease, lumbar facet arthropathy, status post left-sided lumbar radiofrequency ablation of the medial branch L4 through S1. The patient will continue her current medications. The patient will follow up in approximately 2 weeks for reevaluation. Surgical Findings: 1 Complications Complications: No
[2024-11-03 11:10] VITALS: BP 113/54; BP 122/51; PULSE 67; RESP 16; TEMP 37; O2SAT 96
--- NOTE | 2024-11-03 11:11 | PCM.POST.ANE ---
Anesthesia: Postop Eval I Current Vital Signs Temperature: 98.5 F Pulse Rate: 67 Blood Pressure: 113/54 Respiratory Rate: 16 Pulse Ox: 98 Oxygen Delivery Method: Room Air Assessment Airway patent: Yes Spontaneous unlabored respirations: Yes Mental status: Asleep nausea: No Vomiting: No Anesthesia Complication: No Fluid Hydration Crystalloid volume administer (ml): 12 Total IV fluid infused: 12 Progress Note Anesthesia document: Postop Eval 1 completed: Yes
[2024-11-03 11:15] VITALS: BP 122/51; BP 122/64; PULSE 68; RESP 16; O2SAT 95
[2024-11-03 11:18] VITALS: BP 113/54; PULSE 67; RESP 16; TEMP 36.9; O2SAT 98
[2024-11-03 11:20] VITALS: BP 116/52; BP 122/51; PULSE 60; RESP 16; TEMP 36.5; O2SAT 96
[2024-11-03 11:22] VITALS: BP 122/51
--- NOTE | 2024-11-03 13:31 | PCM.POSTANE2 ---
Anesthesia Postop Eval I Sum Postop Eval Completion status Anesthesia document: Postop Eval 1 completed: Yes Anesthesia Postop Eval I Summary Anesthesia Postop Eval I Summary: Anesthesia Postop Eval I: Assessment Summary Airway patent Yes 11/03/24 11:18 Spontaneous unlabored Yes 11/03/24 11:18 respirations Mental status Asleep 11/03/24 11:18 nausea No 11/03/24 11:18 Vomiting No 11/03/24 11:18 Anesthesia Postop Eval I: Fluid Summary Crystalloid volume administer 12 11/03/24 11:18 (ml) Colloids volume administered ( ml) Blood Product volume administered (ml) Total IV fluid infused 12 11/03/24 11:18 Anesthesia Postop Eval I: Summary Notes Anesthesia Complication No 11/03/24 11:18 Anesthesia Complication Comment: Post-operative progress note Anesthesia: Postop Eval II Evaluation Mental status: Awake Pain Level: 2 nausea: No Vomiting: No
== END 2024-11-03 12:14 | disposition home or self-care (01) ==
LOC: SDC 06:59 → AC 07:01
PROVIDERS: PCP Nurse Practitioner Family; Referring Provider Anesthesiology Pain Medicine; Visit Provider Anesthesiology Pain Medicine
PROC: (CPT 64635; principal; 2024-11-03 08:25)
DX: M47.817 Spondylosis without myelopathy or radiculopathy, lumbosacral region (principal); M51.379 Other intervertebral disc degeneration, lumbosacral region without mention of lumbar back pain or lower extremity pain; M46.97 Unspecified inflammatory spondylopathy, lumbosacral region
CPT/HCPCS: 64635; 64636; 01992; 72100; 76000; A4216; J2405

== ENCOUNTER → 2024-11-05 | Outpatient (CLI) | payer MEDICARE, SELFPAY ==
[2024-11-05 12:52] LABS: Absolute Lymphocyte Count 1.71 X10^3/uL (0.83-4.51); Absolute Neutrophil Count 5.2 X10^3/uL (2.0-7.7); Basophil# 0.05 X10^3/uL; Basophil% 0.6 % (0-1); Eosinophil# 0.39 X10^3/uL; Hematocrit 38.9 % (37-47); Hemoglobin 12.5 g/dL (12.0-15.0); Lymphocyte # 1.71 X10^3/ul (0.83-4.51); Lymphocyte % 22.1 % (19-41); Mean Corp Hgb Conc 32.1 g/dL (32-36); Mean Corpuscular Hgb 29.8 pg (27.0-32.0); Mean Corpuscular Volume 92.8 fL (81-99); Mean Platelet Vol. 11.4 fl (6.2-12.0); Monocyte# 0.31 X10^3/uL; NRBC Flagged by Analyzer 0 % (0-5); Neutrophil # 5.24 X10^3/uL (2.7-7.7); Neutrophil % 67.8 % (47-70); Platelet Count 287 K/mm3 (150-450); RBC Distribution Width CV 13.4 % (11.6-14.6); RBC Distribution Width SD 45.2 fl (35.1-43.9); Red Blood Count 4.19 M/mm3 (4.2-5.4); White Blood Count 7.7 K/mm3 (4.4-11.0)
[2024-11-05 13:05] LABS: ALB/GLOB Ratio 1.1 RATIO (0.9-2.4); AST(SGOT) 24 U/L (15-37); Alanine Aminotransfer ALT/SGPT 36 U/L (13-56); Alkaline Phosphatase 78 U/L (45-117); Anion Gap 6 (5-15); BUN 13 mg/dL (7-18); BUN/Creat Ratio 17.4 RATIO (10-20); Calcium,Total 9.2 mg/dL (8.5-10.1); Chloride 106 mmol/L (98-107); Cholesterol 198 mg/dL (200); Creatinine, Serum 0.75 mg/dL (0.55-1.02); EST Glomerular Filtration Rate 84 mL/min (>60); Est Glom Filt Rate - Afr Amer 102 mL/min (>60); Globulin 3.5 g/dL (2.2-4.2); Glucose 143 mg/dL (74-106); High Density Lipoprotein 61 mg/dL; Potassium 3.6 mmol/L (3.5-5.1); Protein, Total 7.5 g/dL (6.4-8.2); Sodium Level 139 mmol/L (136-145); Triglycerides 186 mg/dL; Very Low Density Lipoprotein 37 mg/dL (5-40)
[2024-11-05 13:21] LABS: Hemoglobin A1c 6.1 % (3.8-5.6)
[2024-11-06 00:44] LABS: Vitamin D,25 Hydroxy 71.9 ng/mL
== END | disposition home or self-care (01) ==
LOC: VSLAB 11:55
PROVIDERS: PCP Nurse Practitioner Family; Visit Provider Nurse Practitioner Family
DX: I10 Essential (primary) hypertension (principal); E55.9 Vitamin D deficiency, unspecified; R73.03 Prediabetes
CPT/HCPCS: 36415; 80053; 80061; 82306; 83036; 84443; 85025

== ENCOUNTER 2024-12-08 07:39 | Day surgery (SDC) | payer MEDICARE, SELFPAY ==
--- NOTE | 2024-12-08 08:00 | RAD_ITS ---
HISTORY: CERVICAL EPIDURAL STEROID INJECTION. TECHNIQUE: Cervical spine 2 spot images. COMPARISON: None. FINDINGS: OSSEOUS STRUCTURES: Needle with injection of the lower cervical spine. RAD/Cerv Spine 2 or 3 Views IMPRESSION: Image guidance for cervical epidural steroid injection. Electronically Signed: Laney Wright MD at 8:11 EST ,
[2024-12-08 08:29] VITALS: BP 128/61; PULSE 73; RESP 16; TEMP 36; O2SAT 100; BMI 28.9
[2024-12-08 08:53] VITALS: BP 124/65; BP 129/50; BP 132/71; O2SAT 97; O2SAT 99
--- NOTE | 2024-12-08 09:00 | PCM.OPRPT ---
Operative Report (Standard) Operative Information Date of Procedure: 12/08/24 Pre-Operative Diagnosis: 1 Post-Operative Diagnosis: 1 Surgery/Procedure Performed: 1 sewing pattern layout technician: No Type of Anesthesia: Local RN Documented Start/Stop Times: Operation Date: 12/08/24 09:00 Case Time Into Pre-Op 12/08/24 08:12 Into Room 12/08/24 08:49 Procedure Start 12/08/24 08:56 Procedure Start Time: 09:01 Procedure Stop Time: 09:01 Select all DRAINS/GRAFTS/IMPLANTS that apply: None Estimated Blood Loss: 0 Specimen collected: No Description of surgery: PREOPERATIVE DIAGNOSES: Cervical radiculopathy, cervical spinal stenosis, cervical degenerative disc disease POSTOPERATIVE DIAGNOSES:Cervical radiculopathy, cervical spinal stenosis, cervical degenerative disc disease PROCEDURE PERFORMED: Cervical epidural steroid injection, interlaminar at C7-T1 under fluoroscopic guidance. ANESTHESIA: Local. BLOOD LOSS: Minimal. COMPLICATIONS: None. DESCRIPTION OF PROCEDURE: History and physical of today was reviewed. Risks and benefits of the procedure were explained. The patient understood and agreed to proceed. Informed consent was obtained. IV inserted per routine protocol. The patient was taken to the operating room and placed in the prone position with a pillow positioned underneath the chest. The neck area was prepped and draped in a sterile fashion using iodine x3. Under fluoroscopy guidance on an AP view, the C7-T1 interlaminar space was identified. The skin and subcutaneous tissue was anesthetized with approximately 3 mL of 1% lidocaine using a 25-gauge regular needle. Under direct visualization on fluoroscopy, on AP view, using a 20-gauge 2-1/2-inch Tuohy needle, the needle was advanced via the skin. The tip of the needle was maneuvered and directed towards the interlaminar space at C7-T1. Loss of resistance technique was carried to air. Loss of resistance technique was encountered. Once encountered, after negative aspiration for blood and CSF, a total of 1 mL of contrast was injected to confirm correct placement of the needle as well as cephalocaudal spread of the contrast. Confirmation was obtained on AP as well as lateral view. After repeated negative aspiration and confirmation, a total of 3 mL of preservative-free normal saline and 80 mg of Depo-Medrol was injected easily. The needle was then removed intact. The patient experienced no sign or symptoms of intrathecal or intravascular injection. The patient experienced no paresthesia. The procedure was completed without any apparent difficulty or any complications. The patient appeared to tolerate it well. ASSESSMENT AND PLAN: This is a 59-year-old female with cervical spondylosis, cervical radiculopathy, cervical degenerative disc disease status post cervical epidural steroid injection interlaminar C7-T1 under fluoroscopic guidance, patient will continue her current medications, patient will follow-up in approximately 2 weeks for reevaluation. Surgical Findings: 1 Complications Complications: No Admit VTE Documentation VTE Pharm Prophylaxis ordered?: No
[2024-12-08] MEDS: MethylPREDNISolone Acetate 80 MG/ML Vial (09:02)
[2024-12-08 09:05] VITALS: BP 109/61; PULSE 68; RESP 16; TEMP 36.9; O2SAT 96
== END 2024-12-08 09:39 | disposition home or self-care (01) ==
LOC: SDC 07:41 → AC 07:42
PROVIDERS: PCP Nurse Practitioner Family; Referring Provider Anesthesiology Pain Medicine; Visit Provider Anesthesiology Pain Medicine
PROC: 3E0S3BZ Introduction of Anesthetic Agent into Epidural Space, Percutaneous Approach (ICD-10-PCS; CPT 62320; principal; 2024-12-08 08:55)
DX: M50.123 Cervical disc disorder at C6-C7 level with radiculopathy (principal); M48.02 Spinal stenosis, cervical region; Z79.84 Long term (current) use of oral hypoglycemic drugs; Z79.899 Other long term (current) drug therapy
CPT/HCPCS: 62321; 64490; 72040; A4216

== ENCOUNTER 2024-12-17 07:25 | Day surgery (SDC) | payer MEDICARE, SELFPAY ==
[2024-12-17] VITALS (8 sets, daily range): BP systolic 101–145; BP diastolic 52–71; PULSE 73–78; RESP 14–16; TEMP 36.1–36.7; O2SAT 93–97; BMI 28.8
--- NOTE | 2024-12-17 | GASB_PTH ---
PATIENT: SHELLIE HOWELL LOC: EN U#:[id number] AGE/SX: 59/F ROOM: RE12/17/[address]: Dr. Howie Fontaine DO : 1965 BED: DIS: 12/17/2024 SPEC #: [id number] RECD: 12/17/24 13:03 STATUS: MIKAYLA BRODERICK #: [id number] ONUR: 12/17/24 00:[address]: Howie Fontaine DEPT: SURGICAL PATHOLOGY RECD BY: Rogers Mir ENTERED: 12/17/24 13:03 SP TYPE: Gastric Bx OTHR DR: Leatha Lopez, [facility], SALES CONTRACTOR-C Tissues: A - Duodenum, NOS B - Gastric mucous membrane Procedures: Surgery Specimen Level IV HEADER OPERATION: EGD with biopsy PRE-OP DIAGNOSIS: NAFLD, GERD, esophagitis, chronic diarrhea TISSUE SUBMITTED: A- Duodenum biopsy, B- Pyloric channel biopsy MICROSCOPIC DIAGNOSIS A. Duodenum, biopsy: Fragments of duodenal mucosa, no pathologic diagnosis. B. Pyloric channel, biopsy: Fragments of gastric mucosa with mild chronic inflammation and intestinal metaplasia (goblet cell metaplasia). See comment. MAI.mr 12/18/2024 COMMENT B. The results of immunohistochemistry for Helicobacter pylori will be reported separately ([id number]). Fragments of benign duodenal mucosa are also noted. Correlation with clinical, endoscopic findings and appropriate follow-up are necessary. MICROSCOPIC DESCRIPTION Slides are reviewed. GROSS DESCRIPTION A. Received in fixative is one container labeled with the patient's name and designated Duodenum biopsy. The specimen consists of two irregular fragments of light morocho soft tissue that in aggregate measure 1 x 0.3 x 0.2 cm. The specimen is totally submitted in one cassette. B. Received in fixative is one container labeled with the patient's name and designated Pyloric channel biopsy. The specimen consists of two irregular fragments of light morocho soft tissue that in aggregate measure 1.1 x 0.3 x 0.3 cm. The specimen is totally submitted in one cassette. [email or web address] 12/17/2024 TC:3 CPT:84854a2
--- NOTE | 2024-12-17 08:01 | PCM.PRE.AN2 ---
ASA Classification* ASA Classification ASA Classification: 3 Assessment & Plan Anesthesia* Anesthesia Assessment Anesthesia Assessment: Discussed sedation and/or anesthesia options, risks, benefits, and alternatives with patient/parents/legal guardian/POA. Questions invited. The patient/parents/legal guardian/POA seems to understand and agrees to proceed with anesthesia plan. Reviewed the physical assessment, medical history, allergy history and patient home medications list prior to surgery/procedure/anesthetic and documented any changes. Performed airway and anesthesia risk assessments. Anesthesia Type Anesthesia Type: MAC Anesthesia Focused Assessment* Temperature: 98.1 F Pulse Rate: 78 Blood Pressure: 145/71 Respiratory Rate: 16 Pulse Ox: 95 Oxygen Delivery Method: Room Air Airway Assessment Mouth opens: >3 cm Mallampati Score: III Teeth Condition: Intact Neck Range of motion (ROM): Full ROM Focused Labs Anesthesia Preop lab: CBC WBC 7.7 K/mm3 (4.4-11.0) 11/05/24 11:57 RBC 4.19 M/mm3 (4.2-5.4) L 11/05/24 11:57 Hgb 12.5 g/dL (12.0-15.0) 11/05/24 11:57 Hct 38.9 % (37-47) 11/05/24 11:57 Plt Count 287 K/mm3 (150-450) 11/05/24 11:57 CHEMISTRY Potassium 3.6 mmol/L (3.5-5.1) 11/05/24 11:57 Sodium 139 mmol/L (136-145) 11/05/24 11:57 BUN 13 mg/dL (7-18) 11/05/24 11:57 Creatinine 0.75 mg/dL (0.55-1.02) 11/05/24 11:57 Glucose 143 mg/dL (74-106) H 11/05/24 11:57 TSH 4.350 uIU/mL (0.358-3.740) H 11/05/24 11:57 COAG PT 12.6 SECONDS (11.7-14.9) 09/24/23 08:20 Pre-Assessment Diagnosis/Proposed Procedure Planned Operative Procedure(s): EGD Anesthesia History Anesthesia History - patient transporter: Anesthesia History - patient transporter Hx Hospitalization No 12/16/24 09:51 Any Problems With Anesthesia No 12/16/24 09:51 Cholinesterase deficiency No 12/16/24 09:51 You/Your Family Experience No 12/16/24 09:51 fever (hyperthermia) with Relationship Recent Exposure to Contagious No 12/17/24 07:49 Disease Does patient have nerve No 12/16/24 09:51 stimulator Patient instructed to have device shut off --Does patient have Pacemaker No 12/17/24 07:49 or ICD? When Was Last Pacemaker Check QUESTION #4 FULL TEXT: You/Your Family Experience fever (hyperthermia) with Anesthesia Last Oral Intake Last Oral intake: Last Oral Intake NPO since 22:00 12/17/24 07:49 Meds taken in AM with sips of No 12/17/24 07:49 water? Meds patient instructed to take am of surgery PONV PONV - patient transporter: PONV - patient transporter Female Yes 12/16/24 09:51 HX of Motion Sickness No 12/16/24 09:51 HX of N/V After Surgery No 12/16/24 09:51 Non-Smoker Yes 12/16/24 09:51 Duration of Surgery greater No 12/16/24 09:51 than 60 minutes Number of Risk Factors 2 12/16/24 09:51 PONV Score Moderate Risk 12/16/24 09:51 Height & Weight Height & Weight: Anesthesia: Height & Weight Height 5 ft 4 in 12/17/24 07:49 Weight: 76 kg 12/17/24 07:49 Body Mass Index (BMI) 28.8 12/17/24 07:49 Respiratory Assessment Respiratory Assessment - patient transporter: Respiratory Tract Infection Hx - patient transporter Hx Respiratory Tract Infection No 12/16/24 09:51 STOP Sleep Apnea STOP Sleep Apnea - patient transporter: STOP Sleep Apnea - patient transporter Hx Hypertension Yes: CONTROLLED WITH MED 12/16/24 09:51 Hx Sleep Apnea No 12/16/24 09:51 CPAP BIPAP Do you snore loudly (louder No 12/16/24 09:51 than talking or can be heard Do you often feel tired/ Yes 12/16/24 09:51 fatigued/ sleepy during daytime? Has anyone observed you stop No 12/16/24 09:51 breathing during sleep? STOP Results Positive 12/16/24 09:51 QUESTION #5 FULL TEXT : Do you snore loudly (louder than talking or can be heard through closed doors)? Tobacco Use History Tobacco Use History - patient transporter: Tobacco Use History - patient transporter Tobacco Use Smoking Status Former smoker 12/16/24 09:51 Hx Tobacco Use No 12/16/24 09:51 Years Smoking Packs Smoked per Day Smoking Cessation Date was Yes - quit smoking within 15 12/16/24 09:51 within the last 15 years years Hx Smoking Cessation Date 11/19/18 12/16/24 09:51 Hx Smoking Cessation No 12/16/24 09:51 Counseling Hematologic Medial History Hematologic Hx - patient transporter: Hematologic Medical Hx - print traffic manager Hx of Blood Transfusion No 12/16/24 09:51 Hx of Transfusion in last 3 No 12/16/24 09:51 Months Date of Last Transfusion (if within last 3 months) Ever experience any problems No 12/16/24 09:51 with transfusion(s)? Specify any problems Hx of Preganancy in last 3 No 12/16/24 09:51 Months Nurse Filling Out Transfusion DSCHRIBER 12/16/24 09:51 & Questions: Date: 12/16/24 12/16/24 09:51 Time: 09:53 12/16/24 09:51 Patient unable to answer at this time (ie. confused, unrespo /Reproduction History /Reproductive History - patient transporter: /Reproductive Hx- patient transporter Hx Now Gestational Age (in weeks): EDC: Hx Hx Para Hx Section SAB No 12/16/24 09:51 PFSH Medical History Difficult intravenous access Post-menopausal Anemia Cirrhosis Fatty liver Neuropathy Restless legs DDD (degenerative disc disease) History of ulceration Incontinence History of IBS Gastric reflux Leg cramps History of edema Hypertension Pain Constipation Arthritis Walker as ambulation aid Ambulates with cane Bladder disease Back pain Former smoker History of pain when walking History of irregular heartbeat Heart murmur after rheumatic heart disease Home Medications ?Medication ?Instructions ?Recorded ?Last Taken ?Type acetaminophen 500 mg tablet 1,000 mg PO Q6H PRN pain 10/03/21 12/07/24 History (Tylenol Extra Strength) cyclobenzaprine 10 mg tablet 10 mg PO QHS muscle spasm 04/10/22 12/07/24 History cholecalciferol (vitamin D3) 1,250 1,250 mcg PO QWEEK 6 weeks #6 tabs 04/10/24 12/01/24 Rx mcg (50,000 unit) tablet gabapentin 100 mg capsule 100 mg PO BID nerve damage 09/03/24 12/07/24 History gabapentin 100 mg capsule 300 mg PO QHS 09/03/24 12/07/24 History lisinopril 10 mg tablet 10 mg PO DAILY 10/06/24 12/07/24 History magnesium 250 mg tablet 400 mg PO DAILY 10/06/24 12/07/24 History multivitamin (Daily Multi-Vitamin 1 tab PO DAILY 10/06/24 12/07/24 History tablet) sucralfate 1 gram tablet 1 g PO QACHS PRN stomach ulcers 10/06/24 12/07/24 History vitamin E (dl, acetate) 180 mg 360 mg PO BID 10/06/24 12/05/24 History (400 unit) capsule metformin 500 mg tablet 1,000 mg PO BID 12/08/24 12/07/24 History omeprazole 40 mg capsule,delayed 40 mg PO QHS 12/16/24 Unknown History release Allergy/AdvReac Type Severity Reaction Status Date / Time epinephrine Allergy Severe Anaphylaxis Verified 12/17/24 07:49 venom-honey bee Allergy Severe Anaphylaxis Verified 12/17/24 07:49 tioconazole (From Monistat 1 Allergy Intermediate vaginal Verified 12/17/24 07:49 (tioconazole)) swelling latex Allergy Hives Verified 12/17/24 07:49 Family History Father Diabetes Cancer Mother Hypertension Cancer Carotid stenosis Surgical History Hx of surgical fusion joint History of esophagogastroduodenoscopy (EGD) Hx of colonoscopy with polypectomy History of eye surgery S/P LASIK surgery of both eyes H/O laparoscopy History of appendectomy Social History household members: other details: pet dog housing: house pets and animals: Yes Smoking Status: Former smoker alcohol intake: current alcohol intake frequency: holidays/special occasions only Alcohol type: wine what type of physical activity do you participate in: walking do you feel safe at home: Yes Review of Systems (Anesthesia) ROS Narrative System reviewed and no additional complaints, except as documented.
--- NOTE | 2024-12-17 08:30 | IMM_PTH ---
PATIENT: SHELLIE HOWELL LOC: EN U#:[id number] AGE/SX: 59/F ROOM: RE12/17/[address]: Dr. Howie Fontaine DO : 1965 BED: DIS: 12/17/2024 SPEC #: [id number] RECD: 12/18/24 11:20 STATUS: MIKAYLA REQ #: [id number] ONUR: 12/17/24 08:[address]: Howie Fontaine DEPT: IMMUNOHISTOCHEMISTRY RECD BY: Ladarius Weaver ENTERED: 12/18/24 11:20 SP TYPE: IMMUNO OTHR DR: Leatha Lopez, [facility], TELE MARKETING EXECUTIVE-C Tissues: B - Gastric mucous membrane Procedures: H Pylori (initial) PHYSICIAN & INSTITUTION [place] [id number] SPECIMEN INFORMATION: Tissue Source: B- Pyloric channel biopsy Clinical Info: NAFLD, GERD Specimen Number: [id number] CPT code: 88905 METHODOLOGY: Deparaffinized sections of prefer/formalin-fixed tissue or PAP/DQ stained slides are incubated with monoclonal/polyclonal antibodies/oligonucleotide probes. Localization is made via biotin free immunoperoxidase method. Appropriate controls are performed and reacted as expected. Results on target cell population are indicated in the following table: RESULTS: ANTIBODY / CLONE RESULT Block B H Pylori (polyclonal) negative These tests were developed and their performance characteristics determined by [facility]. They may not have been cleared or approved by the U.[place]. Food and Drug Administration. The FDA has determined that such clearance or approval is not necessary. The above immunohistochemical/dualISH markers are ordered and reviewed by the Pathologist. INTERPRETATION: B. Pyloric channel, biopsy: Negative for Helicobacter pylori organisms. 12/18/2024
--- NOTE | 2024-12-17 08:52 | PCM.HP.STD ---
HPI - General General Date of Admission: 12/17/24 Date of Service: 12/17/24 Chief Complaint: Abdominal pain and bloating HPI Narrative SHELLIE HOWELL, is a 59 F who presents for endoscopic evaluation of abdominal pain and bloating. BGI established 3.1.22 for chronic diarrhea. She requires Depends and bed pads for urinary and fecal incontinence. She takes one loperamide when stool is liquid; if she still has diarrhea the next day then she again takes one loperamide; usually has to take one pill daily x 5 days in order to have formed stools; she stops taking it until stool is again liquid, which is usually about 5 days later. She has been doing this regimen since 2017. No prior evaluation for diarrhea. Abd gets distended but no gas. Denies cramping. Mild pain intermittently lower abd. No nausea, vomiting, acid reflux, heartburn, dysphagia. No hematochezia or melena. Stool was negative for occult blood in 11/2021. No prior EGD or colonoscopy She reports a small capacity bladder. She has mixed urinary incontinence. 11/2021 stool tests negative for enteric pathogens, O&P 11/2021 normal TSH, hgb 12.6 08/2021 esr 18, crp 6.9, protein and globulin elevated CT abd/pel w/contrast 3.9.22- No acute or inflammatory disease or bowel obstruction. OV 3.17.22- Sl elevated IgM, may be reactive, can recheck later. Slight elevation ast and alt. CRP is elevated. Negative stool calprotectin. Neg celiac disease. Neg JO ANN-Comprehensive. Normal gastrin level. Her glucose was elevated. She has made changes in her diet, cutting out sweets, drinking more water. She would like to keep making improvements in diet and then check hgb a1c to determine if she has DM. EGD 04.11.22- Grade B reflux, non- bleeding gastric and duodenal ulcers, granular gastric mucosa- minimal nonspecific chronic inflammation, suggestive of morgan's gland Colon- 04.11.- one polyp in cecum, congested mucosa- hyperplastic polyp OV 6.8.22- Since her endoscopies she has stopped eating by 7 pm, goes to bed at 10 pm. Was getting acid reflux when lying down, that has improved. No dysphagia. Some abdominal bloating. No cramping or abdominal pain. No nausea, vomiting. No hematochezia or melena. Stool was negative for occult blood in 11/2021. Rx Pantoprazole and Sucralfate. 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 She did take sucralfate. She is taking lots of TUMS but that isn't sufficiently controlling her symptoms. Uses Imodium much less often for diarrhea. Order Liver elastography, work on getting Omeprazole US abd/elastography 07.10.22- liver measures 17.8cm 9.3kPa OV 9- It turns out she still hasn't been able to get PPI. She is taking sucralfate prn, finds it helps with diarrhea and epigastric pain and reflux. She has much less diarrhea--stool is almost always solid now. Hasn't needed to use Imodium. Biochemical w/u revealed elevated AMA, elevated GGT, normal alk phos. She is seeing a new neurosurgeon for her chronic back pain/neuropathy. Could not tolerate Ursodiol BID dosing caused her to have worse myalgias/arthralgias. Possible PBC--elevated AMA. GGT 119. nl alk phos. crp 5. a1c 6.1. 06/2022 liver elastography: 9.3 kPa, F2-F3. OV 4.19.23- Reports acid reflux if overeats. No bowel complaints today. Now takes Omeprazole. No dysphagia. Update labs. Contact 03.05.23 Positive AMA (160) but negative alk phos, elevated GGT US elastography 03.06.23- 8.8kPa OV 11.6.23 Pt continues to take Ursodiol, Vitamin E and Omeprazole 40mg BID. C/o itching mostly in front and back of abdomen but not legs and arms. Has been out of Sucralfate which says helps most with her heartburn. Has daily bloating and abdominal cramping before a BM. Usually goes once a day. Sometimes has diarrhea but takes OTC anti-diarrhea which is helpful. Follow Dr. Blount for nerve injections and burning nerve endings in cervical spine and lower lumbar spine. 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 Still has some abdominal pain. Reports itching is better. Is not having heartburn. Patient has chronic urinary and fecal incontinence. Sometimes she has loose bowel movement but otherwise doing good. OV 9.16.24 Pt had a lapse in insurance and ran out of most of her medications. She is in a lot of pain since she hasn't been able to get most of her meds. She continues to have persistent diarrhea. She will have 3-4 bowel bm per night and sleeps next to a commode. She tells me she takes an antidiarrheal she gets over the counter which is helpful. She does not have heartburn but she does have feelings of 'bubbly' in her stomach and belching. [facility] Medical History Difficult intravenous access Post-menopausal Anemia Cirrhosis Fatty liver Neuropathy Restless legs DDD (degenerative disc disease) History of ulceration Incontinence History of IBS Gastric reflux Leg cramps History of edema Hypertension Pain Constipation Arthritis Walker as ambulation aid Ambulates with cane Bladder disease Back pain Former smoker History of pain when walking History of irregular heartbeat Heart murmur after rheumatic heart disease Home Medications ?Medication ?Instructions ?Recorded ?Last Taken ?Type acetaminophen 500 mg tablet 1,000 mg PO Q6H PRN pain 10/03/21 12/07/24 History (Tylenol Extra Strength) cyclobenzaprine 10 mg tablet 10 mg PO QHS muscle spasm 04/10/22 12/07/24 History cholecalciferol (vitamin D3) 1,250 1,250 mcg PO QWEEK 6 weeks #6 tabs 04/10/24 12/01/24 Rx mcg (50,000 unit) tablet gabapentin 100 mg capsule 100 mg PO BID nerve damage 09/03/24 12/07/24 History gabapentin 100 mg capsule 300 mg PO QHS 09/03/24 12/07/24 History lisinopril 10 mg tablet 10 mg PO DAILY 10/06/24 12/07/24 History magnesium 250 mg tablet 400 mg PO DAILY 10/06/24 12/07/24 History multivitamin (Daily Multi-Vitamin 1 tab PO DAILY 10/06/24 12/07/24 History tablet) sucralfate 1 gram tablet 1 g PO QACHS PRN stomach ulcers 10/06/24 12/07/24 History vitamin E (dl, acetate) 180 mg 360 mg PO BID 10/06/24 12/05/24 History (400 unit) capsule metformin 500 mg tablet 1,000 mg PO BID 12/08/24 12/07/24 History omeprazole 40 mg capsule,delayed 40 mg PO QHS 12/16/24 Unknown History release Allergy/AdvReac Type Severity Reaction Status Date / Time epinephrine Allergy Severe Anaphylaxis Verified 12/17/24 07:49 venom-honey bee Allergy Severe Anaphylaxis Verified 12/17/24 07:49 tioconazole (From Monistat 1 Allergy Intermediate vaginal Verified 12/17/24 07:49 (tioconazole)) swelling latex Allergy Hives Verified 12/17/24 07:49 Family History Father Diabetes Cancer Mother Hypertension Cancer Carotid stenosis Surgical History Hx of surgical fusion joint History of esophagogastroduodenoscopy (EGD) Hx of colonoscopy with polypectomy History of eye surgery S/P LASIK surgery of both eyes H/O laparoscopy History of appendectomy Social History household members: other details: pet dog housing: house pets and animals: Yes Smoking Status: Former smoker alcohol intake: current alcohol intake frequency: holidays/special occasions only Alcohol type: wine what type of physical activity do you participate in: walking do you feel safe at home: Yes ROS Constitutional Constitutional: Denies fatigue, fever(s), poor appetite, weight gain or weight loss Gastrointestinal Gastrointestinal: Denies belching, bloating, change in bowel habits, change in stool character, chewing difficulty, coffee ground emesis, constipation, cramping, diarrhea, dyspepsia, dysphagia, early satiety, excessive flatus, fecal incontinence, heartburn, hematemesis, hematochezia, hemorrhoids, loose stools, melena, nausea, odynophagia, rectal bleeding, tenesmus, vomiting or weight changes Vital Signs Vital Signs Vital Signs: 12/17/24 07:49 12/17/24 07:49 12/17/24 08:05 Temperature 98.1 F 98.1 F Temperature Source Temporal Pulse Rate 78 78 Respiratory Rate 16 16 Respiratory Pattern Normal Blood Pressure 145/71 H 145/71 H Blood Pressure Mean 95 Blood Pressure Source Monitor Blood Pressure Position Sitting Blood Pressure Location Right Arm Pulse Ox 95 95 Oxygen Delivery Method Room Air Room Air Weight Weight: 167 lb 8.821 oz Body Mass Index (BMI) 28.8 Physical Exam Const alert, oriented x3, no apparent distress and healthy appearing General Appearance: cooperative GI normal to inspection, nondistended, normoactive bowel sounds, soft to palpation, non-tender and non-distended Percussion: normal to percussion Rectal Exam: deferred Assessment & Plan Assessment/Plan (1) Primary biliary cholangitis: (2) GERD (gastroesophageal reflux disease): QUALIFIERS: Esophagitis presence: with esophagitis Esophagitis bleeding: without hemorrhage Qualified Code(s): K21.00 - Gastro-esophageal reflux disease with esophagitis, without bleeding (3) NAFLD (nonalcoholic fatty liver disease): (4) Gastric ulcer: QUALIFIERS: Gastric ulcer chronicity: chronic Gastric ulcer complication status: with both hemorrhage and perforation Qualified Code(s): K25.6 - Chronic or unspecified gastric ulcer with both hemorrhage and perforation (5) Abdominal pain: PLAN: (1) NAFLD (nonalcoholic fatty liver disease): Status: Chronic Plan: Pt is a 59 yo female with PMHx of GERD, NAFLD, DDD, and chronic diarrhea. She is here today for f/u. She has been without most of her medications due to a lapse in insurance. All of her medications were refilled and she will start retaking them. She will take omeprazole 40 mg daily for esophagitis. She was on Vitamin E and ursodiol for NAFLD but was unable to afford ursodiol anymore. I told her we will check in on her liver with elastography to see if we need put her on other medications. She is having nocturnal diarrhea 3-4x times per night. This is disruptive to her sleep. She has tried OTC diarrhea agents. I will prescribe her colestipol 1 gram daily for diarrhea. I recommended we repeat EGD soon due to hx of esophagitis and metaplasia. She is agreeable to plan. -Ordered elastography -Refilled omeprazole, sucralfate and vitamin E; she is unable to afford ursodiol -Prescribed colestipol 1 gram daily for diarrhea -She will undergo an EGD to evaluate her upper GI tract because a history of peptic ulcer disease and ongoing abdominal pain. (2) GERD (gastroesophageal reflux disease): Status: Chronic Qualifiers: Esophagitis bleeding: without hemorrhage Esophagitis presence: with esophagitis Qualified Code(s): K21.00 - Gastro-esophageal reflux disease with esophagitis, without bleeding (3) Esophagitis: Status: Acute (4) Chronic diarrhea: Status: Chronic
--- NOTE | 2024-12-17 09:19 | OP.EGD_ITS ---
Patient Name: Petty Dean Procedure Date: 12/17/2024 8:56 AM Date of : 1965 Age: 59 Procedure: Upper GI endoscopy Indications: Epigastric abdominal pain Providers: Howie Fontaine DO Referring MD: Leatha Lopez guero, [employer] Medicines: Monitored Anesthesia Care Patient Profile: This is a 59 year old female. Refer to note in patient chart for documentation of history and physical. Patient has symptoms of chronic abdominal cramping and chronic epigastric abdominal pain. Complications: No immediate complications. Procedure: Pre-Anesthesia Assessment: - Prior to the procedure, a History and Physical was performed, and patient medications and allergies were reviewed. The patient is competent. The risks and benefits of the procedure and the sedation options and risks were discussed with the patient. All questions were answered and informed consent was obtained. Patient identification and proposed procedure were verified by the physician in the pre-procedure area. Mental Status Examination: alert and oriented. Airway Examination: normal oropharyngeal airway and neck mobility. Respiratory Examination: clear to auscultation. CV Examination: normal. Prophylactic Antibiotics: The patient does not require prophylactic antibiotics. Prior Anticoagulants: The patient has taken no anticoagulant or antiplatelet agents except for NSAID medication. ASA Grade Assessment: II - A patient with mild systemic disease. After reviewing the risks and benefits, the patient was deemed in satisfactory condition to undergo the procedure. The anesthesia plan was to use monitored anesthesia care (MAC). Immediately prior to administration of medications, the patient was re-assessed for adequacy to receive sedatives. The heart rate, respiratory rate, oxygen saturations, blood pressure, adequacy of pulmonary ventilation, and response to care were monitored throughout the procedure. The physical status of the patient was re-assessed after the procedure. After obtaining informed consent, the endoscope was passed under direct vision. Throughout the procedure, the patient's blood pressure, pulse, and oxygen saturations were monitored continuously. The Endoscope was introduced through the mouth, and advanced to the second part of duodenum. The upper GI endoscopy was accomplished without difficulty. The patient tolerated the procedure well. Scope In: 9:05:42 AM Scope Out: 9:09:17 AM Total Procedure Duration Time 0 hours 3 minutes 35 seconds Findings: The examined esophagus was normal. Patchy mild inflammation characterized by erythema was found at the pylorus. Biopsies were taken with a cold forceps for histology. Verification of patient identification for the specimen was done. Estimated blood loss was minimal. Patchy mildly erythematous mucosa without active bleeding and with no stigmata of bleeding was found in the duodenal bulb. Biopsies were taken with a cold forceps for histology. Verification of patient identification for the specimen was done. Estimated blood loss was minimal. Impression: - Normal esophagus. - Chronic gastritis. Biopsied. - Erythematous duodenopathy. Biopsied. Recommendation: - Discharge patient to home. - Resume previous diet. - Continue present medications. - Await pathology results. Procedure Code(s): --- Professional --- 89404, Esophagogastroduodenoscopy, flexible, transoral; with biopsy, single or multiple CPT copyright 2021 [employer]. All rights reserved. The codes documented in this report are preliminary and upon erp manager review may be revised to meet current compliance requirements. Howie Fontaine DO 12/17/2024 9:19:09 AM This report has been signed electronically. Number of Addenda: 0 Note Initiated On: 12/17/2024 8:56 AM
--- NOTE | 2024-12-17 09:19 | OP.CCLET_ITS ---
12/17/2024 Leatha Lopez [facility], [employer] Re : Upper GI endoscopy procedure for Petty Sepulvedar John This procedure was performed on Tuesday, December 17, 2024. My impressions and recommendations are as follows: Impressions : - Normal esophagus. - Chronic gastritis. Biopsied. - Erythematous duodenopathy. Biopsied. Recommendations : - Discharge patient to home. - Resume previous diet. - Continue present medications. - Await pathology results. My findings are described in the full procedure note, which is enclosed. If I can be of further assistance, please feel free to contact me at . Sincerely, Howie Fontaine, 12/17/2024 9:19:09 AM This report has been signed electronically.
--- NOTE | 2024-12-17 09:21 | PCM.POST.ANE ---
Anesthesia: Postop Eval I Current Vital Signs Temperature: 97 F Pulse Rate: 74 Blood Pressure: 106/56 Respiratory Rate: 14 Pulse Ox: 97 Oxygen Delivery Method: Room Air Assessment Airway patent: Yes Spontaneous unlabored respirations: Yes Mental status: Asleep nausea: No Vomiting: No Anesthesia Complication: No Fluid Hydration Crystalloid volume administer (ml): 30 Total IV fluid infused: 30 Progress Note Anesthesia document: Postop Eval 1 completed: Yes
--- NOTE | 2024-12-17 09:46 | PCM.POSTANE2 ---
Anesthesia Postop Eval I Sum Postop Eval Completion status Anesthesia document: Postop Eval 1 completed: Yes Anesthesia Postop Eval I Summary Anesthesia Postop Eval I Summary: Anesthesia Postop Eval I: Assessment Summary Airway patent Yes 12/17/24 09:21 [email or web address] Spontaneous unlabored Yes 12/17/24 09:21 [email or web address] respirations Mental status Asleep 12/17/24 09:21 [email or web address] nausea No 12/17/24 09:21 [email or web address] Vomiting No 12/17/24 09:21 [email or web address] Anesthesia Postop Eval I: Fluid Summary Crystalloid volume administer 30 12/17/24 09:21 [email or web address] (ml) Colloids volume administered ( ml) Blood Product volume administered (ml) Total IV fluid infused 30 12/17/24 09:21 [email or web address] Anesthesia Postop Eval I: Summary Notes Anesthesia Complication No 12/17/24 09:21 [email or web address] Anesthesia Complication Comment: Post-operative progress note Anesthesia: Postop Eval II Evaluation Mental status: Awake Pain Level: 0 nausea: No Vomiting: No Complications Anesthesia Complication: No
== END 2024-12-17 09:58 | disposition home or self-care (01) ==
LOC: EN 07:26 → AC 07:27
PROVIDERS: PCP Nurse Practitioner Family; Referring Provider Nurse Practitioner Family; Visit Provider Internal Medicine Gastroenterology
PROC: 0DJ08ZZ Inspection of Upper Intestinal Tract, Via Natural or Artificial Opening Endoscopic (ICD-10-PCS; CPT 43235; principal; 2024-12-17 08:25)
DX: K31.A0 Gastric intestinal metaplasia, unspecified (principal); K74.3 Primary biliary cirrhosis; K25.6 Chronic or unspecified gastric ulcer with both hemorrhage and perforation; I10 Essential (primary) hypertension; Z87.891 Personal history of nicotine dependence; K29.50 Unspecified chronic gastritis without bleeding; Z79.84 Long term (current) use of oral hypoglycemic drugs; K76.0 Fatty (change of) liver, not elsewhere classified; K21.00 Gastro-esophageal reflux disease with esophagitis, without bleeding; Z79.899 Other long term (current) drug therapy
CPT/HCPCS: 43239; 88305; 88342; A4216; J2405

== ENCOUNTER 2025-02-02 07:15 | Day surgery (SDC) | payer MEDICARE, SELFPAY ==
[2025-02-02] VITALS (7 sets, daily range): BP systolic 118–134; BP diastolic 59–76; PULSE 71–81; RESP 14–18; TEMP 36.2–36.3; O2SAT 94–99; BMI 29.2
[2025-02-02] MEDS: MethylPREDNISolone Acetate 40 MG/ML Vial (07:38)
--- NOTE | 2025-02-02 08:00 | RAD_ITS ---
PROCEDURE: Fluoroscopy use. 02/02/2025 REASON FOR EXAM: RT CERVICAL RADIOFREQUENCY ABLATION C4 C5 C6 C7 TECHNIQUE: 7 intraoperative spot images were obtained during right cervical radiofrequency ablation. 25.4 seconds of fluoroscopic time utilized. COMPARISON: None available FINDINGS: 7 intraoperative spot images of the cervical spine were obtained during right radiofrequency ablation. Several needles project over what is presumably the right lateral margin of the cervical spine. No laterality marker on the provided images. RAD/Cerv Spine 4 or 5 Views IMPRESSION: Documentation of fluoroscopy use during right cervical radiofrequency ablation. Please see the procedure note for details. Reading Location: [facility]
--- NOTE | 2025-02-02 08:45 | PCM.PRE.AN2 ---
ASA Classification* ASA Classification ASA Classification: 3 Assessment & Plan Anesthesia* Anesthesia Assessment Anesthesia Assessment: Discussed sedation and/or anesthesia options, risks, benefits, and alternatives with patient/parents/legal guardian/POA. Questions invited. The patient/parents/legal guardian/POA seems to understand and agrees to proceed with anesthesia plan. Reviewed the physical assessment, medical history, allergy history and patient home medications list prior to surgery/procedure/anesthetic and documented any changes. Performed airway and anesthesia risk assessments. Anesthesia Type Anesthesia Type: MAC History Source History Obtained from:: Patient Anesthesia Focused Assessment* Pulse Rate: 74 Blood Pressure: 132/61 Respiratory Rate: 16 Pulse Ox: 99 Oxygen Delivery Method: Room Air Airway Assessment Mouth opens: >3 cm Mallampati Score: III Teeth Condition: Caps/Crowns (Patient has a crown left lower molar. It is tight.) and Missing (Patient has several missing teeth. Rest of the teeth are tight.) Neck Range of motion (ROM): Limited ROM (Decreased extension secondary to pain.) Focused Labs Anesthesia Preop lab: CBC WBC 7.7 K/mm3 (4.4-11.0) 11/05/24 11:57 11/05/24 RBC 4.19 M/mm3 (4.2-5.4) L 11/05/24 11:57 11/05/24 Hgb 12.5 g/dL (12.0-15.0) 11/05/24 11:57 11/05/24 Hct 38.9 % (37-47) 11/05/24 11:57 11/05/24 Plt Count 287 K/mm3 (150-450) 11/05/24 11:57 11/05/24 CHEMISTRY Potassium 3.6 mmol/L (3.5-5.1) 11/05/24 11:57 11/05/24 Sodium 139 mmol/L (136-145) 11/05/24 11:57 11/05/24 BUN 13 mg/dL (7-18) 11/05/24 11:57 11/05/24 Creatinine 0.75 mg/dL (0.55-1.02) 11/05/24 11:57 11/05/24 Glucose 143 mg/dL (74-106) H 11/05/24 11:57 12/18/24 TSH 4.350 uIU/mL (0.358-3.740) H 11/05/24 11:57 11/05/24 COAG PT 12.6 SECONDS (11.7-14.9) 09/24/23 08:20 09/24/23 Pre-Assessment Diagnosis/Proposed Procedure Planned Operative Procedure(s): Right cervical radiofrequency ablation of medial branch of C4 C5-C6-C7 under fluoroscopy. Anesthesia History Anesthesia History - supervisor print line: Anesthesia History - supervisor print line Hx Hospitalization No 12/16/24 09:51 Any Problems With Anesthesia No 12/16/24 09:51 Cholinesterase deficiency No 12/16/24 09:51 You/Your Family Experience No 12/16/24 09:51 fever (hyperthermia) with Relationship Recent Exposure to Contagious No 02/02/25 07:47 Disease Does patient have nerve No 12/16/24 09:51 stimulator Patient instructed to have device shut off --Does patient have Pacemaker No 02/02/25 07:49 or ICD? When Was Last Pacemaker Check QUESTION #4 FULL TEXT: You/Your Family Experience fever (hyperthermia) with Anesthesia Last Oral Intake Last Oral intake: Last Oral Intake NPO since 20:00 02/02/25 07:49 Meds taken in AM with sips of No 02/02/25 07:49 water? Meds patient instructed to take am of surgery PONV PONV - supervisor print line: PONV - supervisor print line Female HX of Motion Sickness HX of N/V After Surgery Non-Smoker Duration of Surgery greater than 60 minutes Number of Risk Factors PONV Score Height & Weight Height & Weight: Anesthesia: Height & Weight Height 5 ft 4 in 02/02/25 07:49 Weight: 77.474 kg 02/02/25 07:49 Body Mass Index (BMI) 29.2 02/02/25 07:49 Respiratory Assessment Respiratory Assessment - supervisor print line: Respiratory Tract Infection Hx - supervisor print line Hx Respiratory Tract Infection No 12/16/24 09:51 STOP Sleep Apnea STOP Sleep Apnea - supervisor print line: STOP Sleep Apnea - supervisor print line Hx Hypertension Yes: CONTROLLED WITH MED 12/16/24 09:51 Hx Sleep Apnea No 12/17/24 09:25 CPAP BIPAP Do you snore loudly (louder than talking or can be heard Do you often feel tired/ fatigued/ sleepy during daytime? Has anyone observed you stop breathing during sleep? STOP Results QUESTION #5 FULL TEXT : Do you snore loudly (louder than talking or can be heard through closed doors)? 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 Specify any problems Hx of Preganancy in last 3 Months Nurse Filling Out Transfusion & Questions: Date: Time: Patient unable to answer at this time (ie. confused, unrespo /Reproduction History /Reproductive History - supervisor print line: /Reproductive Hx- supervisor print line Hx Now Gestational Age (in weeks): EDC: Hx Hx Para Hx Section SAB No 12/16/24 09:51 FOR[facility] Medical History Difficult intravenous access Post-menopausal Anemia Cirrhosis Fatty liver Neuropathy Restless legs DDD (degenerative disc disease) History of ulceration Incontinence History of IBS Gastric reflux Leg cramps History of edema Hypertension Pain Constipation Arthritis Walker as ambulation aid Ambulates with cane Bladder disease Back pain Former smoker History of pain when walking History of irregular heartbeat Heart murmur after rheumatic heart disease Home Medications ?Medication ?Instructions ?Recorded ?Last Taken ?Type acetaminophen 500 mg tablet 1,000 mg PO Q6H PRN pain 10/03/21 02/01/25 History (Tylenol Extra Strength) cyclobenzaprine 10 mg tablet 10 mg PO QHS muscle spasm 04/10/22 02/01/25 History cholecalciferol (vitamin D3) 1,250 1,250 mcg PO QWEEK 6 weeks #6 tabs 04/10/24 02/01/25 Rx mcg (50,000 unit) tablet gabapentin 100 mg capsule 100 mg PO BID nerve damage 09/03/24 02/01/25 History gabapentin 100 mg capsule 300 mg PO QHS 09/03/24 02/01/25 History lisinopril 10 mg tablet 10 mg PO DAILY 10/06/24 02/01/25 History magnesium 250 mg tablet 400 mg PO DAILY 10/06/24 02/01/25 History multivitamin (Daily Multi-Vitamin 1 tab PO DAILY 10/06/24 02/01/25 History tablet) vitamin E (dl, acetate) 180 mg 360 mg PO BID 10/06/24 01/31/25 History (400 unit) capsule metformin 500 mg tablet 1,000 mg PO BID 12/08/24 02/01/25 History omeprazole 40 mg capsule,delayed 40 mg PO QHS #60 caps 01/06/25 02/01/25 Rx release sucralfate 1 gram tablet 1 g PO QACHS PRN stomach ulcers 01/06/25 Unknown Rx #14 tabs Allergy/AdvReac Type Severity Reaction Status Date / Time epinephrine Allergy Severe Anaphylaxis Verified 02/02/25 07:44 venom-honey bee Allergy Severe Anaphylaxis Verified 02/02/25 07:44 tioconazole (From Monistat 1 Allergy Intermediate vaginal Verified 02/02/25 07:44 (tioconazole)) swelling latex Allergy Hives Verified 02/02/25 07:44 Family History Father Diabetes Cancer Mother Hypertension Cancer Carotid stenosis Surgical History Hx of surgical fusion joint History of esophagogastroduodenoscopy (EGD) Hx of colonoscopy with polypectomy History of eye surgery S/P LASIK surgery of both eyes H/O laparoscopy History of appendectomy Social History household members: other details: pet dog housing: house pets and animals: Yes Smoking Status: Former smoker alcohol intake: current alcohol intake frequency: holidays/special occasions only Alcohol type: wine what type of physical activity do you participate in: walking do you feel safe at home: Yes Review of Systems (Anesthesia) ROS Narrative System reviewed and no additional complaints, except as documented.
[2025-02-02] MEDS: Lidocaine 1% (30 ml sdv) 30 ML Vial (09:24)
[2025-02-02] MEDS: Bupivacaine 0.25% 30 ML Vial (09:25)
--- NOTE | 2025-02-02 09:37 | PCM.POST.ANE ---
Anesthesia: Postop Eval I Current Vital Signs Temperature: 97.1 F Pulse Rate: 81 Blood Pressure: 120/76 Respiratory Rate: 18 Pulse Ox: 95 Oxygen Delivery Method: Room Air Assessment Airway patent: Yes Spontaneous unlabored respirations: Yes Mental status: Awake nausea: No Vomiting: No Anesthesia Complication: No Fluid Hydration Crystalloid volume administer (ml): 10 Total IV fluid infused: 10 Progress Note Anesthesia document: Postop Eval 1 completed: Yes
--- NOTE | 2025-02-02 09:38 | PCM.OPRPT ---
Operative Report (Standard) Operative Information Date of Procedure: 02/02/25 Pre-Operative Diagnosis: 1 Post-Operative Diagnosis: 1 Surgery/Procedure Performed: 1 admissions coordinator: No Type of Anesthesia: Local MAC RN Documented Start/Stop Times: Operation Date: 02/02/25 09:00 Case Time Into Pre-Op 02/02/25 07:33 Anesthesia Start 02/02/25 09:13 Into Room 02/02/25 09:13 Procedure Start 02/02/25 09:20 Procedure End 02/02/25 09:29 Anesthesia End 02/02/25 09:34 Out of Room 02/02/25 09:34 Into Recovery 02/02/25 09:36 Procedure Start Time: 09:39 Procedure Stop Time: 09:39 Select all DRAINS/GRAFTS/IMPLANTS that apply: None Estimated Blood Loss: 1 Specimen collected: No Description of surgery: PREOPERATIVE DIAGNOSIS: Cervical spondylosis, cervical degenerative disc disease, cervical facet arthropathy POSTOPERATIVE DIAGNOSIS: Cervical spondylosis, cervical degenerative disc disease, cervical facet arthropathy PROCEDURE PERFORMED: Right-sided radiofrequency ablation of the medial branch at C4, C5, C6, and C7. ANESTHESIA: MAC. BLOOD LOSS: Minimal. COMPLICATIONS: None. DESCRIPTION OF PROCEDURE: History and physical of today was reviewed. Risks and benefits of the procedure were explained. The patient understood and agreed to proceed. Informed consent was obtained. IV inserted per routine protocol. The patient was taken to the operating room and placed in the prone position with a pillow positioned underneath the chest. The neck area was prepped and draped in a sterile fashion using iodine x3. Under fluoroscopy guidance on an AP view, the C4 through C7 vertebral bodies were visualized. The skin and subcutaneous tissue was anesthetized with approximately 10 mL of 1% lidocaine using a 25-gauge regular needle. Under direct visualization on fluoroscopy on a lateral view, using a 21-gauge 10-cm with a 10-mm curved active-tip radiofrequency ablation needle, the needle was passed through the skin. The tip of the needle was maneuvered and directed towards the epiphyseal junction of each corresponding vertebra, starting on the right C4, ending on the right C7, passing through the C5 and C6. Once the tip of the needle was at the vicinity of the medial branch and at the middle of the trapezoid on the lateral view, the stylette of each needle was then removed. After negative aspiration of blood or CSF and confirmation on AP, oblique as well as lateral view, radiofrequency ablation probe was then inserted at each level. Impedance was then recorded at C4 to be 293 ohm, at C5 to be 273 ohm, at C6 to be 255 ohm, and at C7 to be 297 ohm. Motor-evoked potential was then initiated to 1.5 volt without any motor response to each corresponding level or the left arm. The probe was then removed intact and a total of 4 mL of preservative-free 1% lidocaine was injected in divided doses between those four levels after negative aspiration of blood or CSF. After repeated confirmation, the radiofrequency ablation probe was then inserted and after repeated confirmation on AP, oblique as well as lateral view, radiofrequency ablation was then initiated to approximately 80 degree Celsius for 60 second at each level. Once concluded, the probe was then removed intact. A total of 4 mL of preservative-free 0.25% Marcaine with 40 mg of Depo-Medrol was injected in divided doses between those four levels. The needles were then removed intact. The patient experienced no sign or symptoms of intrathecal or intravascular injection. The patient experienced no paresthesia. The procedure was completed without any apparent difficulty or any complications. The patient appeared to tolerate it well. Sensory as well as motor exam was unchanged from prior to the procedure. ASSESSMENT AND PLAN: This is a 59-year-old female with cervical spondylosis, cervical degenerative disc disease, cervical facet arthropathy status post right-sided cervical radiofrequency ablation of the medial branch C4-C7, patient will continue their current medications, patient will follow up in approximately 2 weeks for reevaluation. Surgical Findings: 0 Complications Complications: No Admit VTE Documentation VTE Present on Admission: No VTE Mechan Device Prophylaxis: None VTE Pharm Prophylaxis ordered?: No
--- NOTE | 2025-02-02 10:04 | POSTOPAN2_ITS ---
Anesthesia Postop Eval I Sum Postop Eval Completion status Anesthesia document: Postop Eval 1 completed: Yes Anesthesia Postop Eval I Summary Anesthesia Postop Eval I Summary: Anesthesia Postop Eval I: Assessment Summary Airway patent Yes 02/02/25 09:40 LUNCH COUNTER [email or web address] Spontaneous unlabored Yes 02/02/25 09:40 LUNCH COUNTER MANAGER.[email or web address] respirations Mental status Awake 02/02/25 09:40 LUNCH COUNTER MANAGER.[email or web address] nausea No 02/02/25 09:40 LUNCH COUNTER MANAGER.[email or web address] Vomiting No 02/02/25 09:40 LUNCH COUNTER MANAGER.[email or web address] Anesthesia Postop Eval I: Fluid Summary Crystalloid volume administer 10 02/02/25 09:40 LUNCH COUNTER MANAGER.[email or web address] (ml) Colloids volume administered ( ml) Blood Product volume administered (ml) Total IV fluid infused 10 02/02/25 09:40 LUNCH COUNTER MANAGER.[email or web address] Anesthesia Postop Eval I: Summary Notes Anesthesia Complication No 02/02/25 09:40 LUNCH COUNTER MANAGER.[email or web address] Anesthesia Complication Comment: Post-operative progress note Anesthesia: Postop Eval II Evaluation Mental status: Awake Pain Level: 2 nausea: No Vomiting: No
--- NOTE | 2025-02-02 10:04 | PCM.POSTANE2 ---
Anesthesia Postop Eval I Sum Postop Eval Completion status Anesthesia document: Postop Eval 1 completed: Yes Anesthesia Postop Eval I Summary Anesthesia Postop Eval I Summary: Anesthesia Postop Eval I: Assessment Summary Airway patent Yes 02/02/25 09:40 CERTIFIED ACTIVITIES DIRECTOR.[email or web address] Spontaneous unlabored Yes 02/02/25 09:40 CERTIFIED ACTIVITIES DIRECTOR.LMIL respirations Mental status Awake 02/02/25 09:40 CERTIFIED ACTIVITIES DIRECTOR.LMIL nausea No 02/02/25 09:40 CERTIFIED ACTIVITIES DIRECTOR.[email or web address] Vomiting No 02/02/25 09:40 CERTIFIED ACTIVITIES DIRECTOR.LMIL Anesthesia Postop Eval I: Fluid Summary Crystalloid volume administer 10 02/02/25 09:40 CERTIFIED ACTIVITIES DIRECTOR.LMIL (ml) Colloids volume administered ( ml) Blood Product volume administered (ml) Total IV fluid infused 10 02/02/25 09:40 CERTIFIED ACTIVITIES DIRECTOR.[email or web address] Anesthesia Postop Eval I: Summary Notes Anesthesia Complication No 02/02/25 09:40 CERTIFIED ACTIVITIES DIRECTOR.LMIL Anesthesia Complication Comment: Post-operative progress note Anesthesia: Postop Eval II Evaluation Mental status: Awake Pain Level: 2 nausea: No Vomiting: No
== END 2025-02-02 10:25 | disposition home or self-care (01) ==
PROVIDERS: PCP Nurse Practitioner Family; Referring Provider Anesthesiology Pain Medicine; Visit Provider Anesthesiology Pain Medicine
PROC: (CPT 64633; principal; 2025-02-02 08:55)
DX: M50.30 Other cervical disc degeneration, unspecified cervical region (principal); M47.812 Spondylosis without myelopathy or radiculopathy, cervical region; I10 Essential (primary) hypertension; Z79.84 Long term (current) use of oral hypoglycemic drugs; Z79.899 Other long term (current) drug therapy; Z87.891 Personal history of nicotine dependence
CPT/HCPCS: 64633; 64634 ×2; 01992; 72050; 76000

== ENCOUNTER → 2025-04-02 | Outpatient (CLI) | payer MEDICARE, SELFPAY ==
[2025-04-02 12:17] LABS: Absolute Lymphocyte Count 1.32 X10^3/uL (0.83-4.51); Absolute Neutrophil Count 2.9 X10^3/uL (2.0-7.7); Basophil# 0.04 X10^3/uL; Basophil% 0.8 % (0-1); Eosinophil# 0.14 X10^3/uL; Eosinophils% 2.9 % (0-5); Hematocrit 38.1 % (37-47); Hemoglobin 12.6 g/dL (12.0-15.0); Lymphocyte # 1.32 X10^3/ul (0.83-4.51); Lymphocyte % 27.3 % (19-41); Mean Corp Hgb Conc 33.1 g/dL (32-36); Mean Corpuscular Hgb 30.9 pg (27.0-32.0); Mean Corpuscular Volume 93.4 fL (81-99); Mean Platelet Vol. 11.2 fl (6.2-12.0); Monocyte# 0.42 X10^3/uL; Monocyte% 8.7 % (0-10); NRBC Flagged by Analyzer 0 % (0-5); Neutrophil # 2.91 X10^3/uL (2.7-7.7); Neutrophil % 60.1 % (47-70); Platelet Count 287 K/mm3 (150-450); RBC Distribution Width CV 13.1 % (11.6-14.6); RBC Distribution Width SD 44.9 fl (35.1-43.9); Red Blood Count 4.08 M/mm3 (4.2-5.4); White Blood Count 4.8 K/mm3 (4.4-11.0)
[2025-04-02 13:19] LABS: ALB/GLOB Ratio 1.6 RATIO (0.9-2.4); AST(SGOT) 38 U/L (<=31); Alanine Aminotransfer ALT/SGPT 46 U/L (<=34); Albumin, Serum 4.5 g/dL (3.5-5.0); Alkaline Phosphatase 97 U/L (35-104); Anion Gap 13 (5-15); BUN 15 mg/dL (4-19); BUN/Creat Ratio 19.8 RATIO (10-20); Calcium,Total 9.9 mg/dL (7.6-11.0); Carbon Dioxide 24.6 mmol/L (21.0-32.0); Chloride 101 mmol/L (98-108); Cholesterol 198 mg/dL (<=200); Creatinine, Serum 0.75 mg/dL (0.70-1.20); EST Glomerular Filtration Rate 93 (>60); Globulin 2.9 g/dL (2.2-4.2); Glucose 94 mg/dL (70-99); High Density Lipoprotein 47 mg/dL; Low Density Lipoprotein Calc. 109 mg/dL; Potassium 4.3 mmol/L (3.3-5.1); Protein, Total 7.4 g/dL (5.9-8.4); Sodium Level 139 mmol/L (133-145); Total Bilirubin 0.42 mg/dL (0.00-1.30); Triglycerides 215 mg/dL; Very Low Density Lipoprotein 43 mg/dL (5-40); Vitamin D,25 Hydroxy 68.8 ng/mL (30-100); cholesterol:hdl ratio screen 4.26
== END | disposition home or self-care (01) ==
LOC: VSLAB 10:36
PROVIDERS: PCP Nurse Practitioner Family; Visit Provider Nurse Practitioner Family
DX: I10 Essential (primary) hypertension (principal); E55.9 Vitamin D deficiency, unspecified
CPT/HCPCS: 36415; 80053; 80061; 82306; 84443; 85025

== ENCOUNTER 2025-06-08 05:50 | Day surgery (SDC) | payer MEDICARE, SELFPAY ==
[2025-06-08] VITALS (8 sets, daily range): BP systolic 99–131; BP diastolic 56–93; PULSE 68–77; RESP 12–18; TEMP 36.2–36.6; O2SAT 94–100; BMI 28.5
[2025-06-08] MEDS: Lactated Ringers 1,000 ML 15 ML IV (06:29)
--- NOTE | 2025-06-08 06:35 | PCM.PRE.AN2 ---
ASA Classification* ASA Classification ASA Classification: 3 Assessment & Plan Anesthesia* Anesthesia Assessment Anesthesia Assessment: Discussed sedation and/or anesthesia options, risks, benefits, and alternatives with patient/parents/legal guardian/POA. Questions invited. The patient/parents/legal guardian/POA seems to understand and agrees to proceed with anesthesia plan. Reviewed the physical assessment, medical history, allergy history and patient home medications list prior to surgery/procedure/anesthetic and documented any changes. Performed airway and anesthesia risk assessments. Anesthesia Type Anesthesia Type: MAC History Source History Obtained from:: Patient and Chart Anesthesia Focused Assessment* Temperature: 97.1 F Pulse Rate: 73 Blood Pressure: 113/93 Respiratory Rate: 18 Pulse Ox: 94 Oxygen Delivery Method: Room Air Airway Assessment Mouth opens: >3 cm Mallampati Score: III Teeth Condition: Caps/Crowns (Patient has a couple of crowns. They are tight.) and Missing (Several missing teeth. Rest of the teeth are tight.) Neck Range of motion (ROM): Limited ROM (Severe Restriction) Labs Anesthesia Preop lab: CBC WBC 4.8 K/mm3 (4.4-11.0) 04/02/25 10:37 04/02/25 RBC 4.08 M/mm3 (4.2-5.4) L 04/02/25 10:37 04/02/25 Hgb 12.6 g/dL (12.0-15.0) 04/02/25 10:37 04/02/25 Hct 38.1 % (37-47) 04/02/25 10:37 04/02/25 Plt Count 287 K/mm3 (150-450) 04/02/25 10:37 04/02/25 CHEMISTRY Potassium 4.3 mmol/L (3.3-5.1) 04/02/25 10:37 04/02/25 Sodium 139 mmol/L (133-145) 04/02/25 10:37 04/02/25 BUN 15 mg/dL (4-19) 04/02/25 10:37 04/02/25 Creatinine 0.75 mg/dL (0.70-1.20) 04/02/25 10:37 04/02/25 Glucose 94 mg/dL (70-99) 04/02/25 10:37 04/02/25 TSH 2.640 uIU/mL (0.300-4.200) 04/02/25 10:37 04/02/25 COAG PT 12.6 SECONDS (11.7-14.9) 09/24/23 08:20 09/24/23 Pre-Assessment Diagnosis/Proposed Procedure Planned Operative Procedure(s): (R) RIGHT LUMBAR RADIOFREQUENCY ABLATION AT MEDIAL BRANCH OF L3 L4 L5 UNDER FLUOROSCOPY Anesthesia History 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 When Was Last Pacemaker Check QUESTION #4 FULL TEXT: You/Your Family Experience fever (hyperthermia) with Anesthesia Last Oral Intake Last Oral intake: Last Oral Intake NPO since 21:30 06/08/25 06:19 Meds taken in AM with sips of water? 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 scheme examiner: PONV - mail distribution scheme examiner Female Yes 06/01/25 14:25 HX of Motion Sickness No 06/01/25 14:25 HX of N/V After Surgery No 06/01/25 14:25 Non-Smoker Yes 06/01/25 14:25 Duration of Surgery greater No 06/01/25 14:25 than 60 minutes Number of Risk Factors 2 06/01/25 14:25 PONV Score Moderate Risk 06/01/25 14:25 Height & Weight Height & Weight: Anesthesia: Height & Weight Height 5 ft 4 in 06/08/25 06:19 Weight: 75.6 kg 06/08/25 06:19 Body Mass Index (BMI) 28.5 06/08/25 06:19 Respiratory Assessment Respiratory Assessment - mail distribution scheme examiner: Respiratory Tract Infection Hx - mail distribution scheme examiner Hx Respiratory Tract Infection No 06/01/25 14:25 STOP Sleep Apnea STOP Sleep Apnea - mail distribution scheme examiner: STOP Sleep Apnea - mail distribution scheme examiner Hx Hypertension Yes: CONTROLLED WITH MED 06/01/25 14:25 Hx Sleep Apnea No 06/01/25 14:25 CPAP BIPAP Do you snore loudly (louder No 06/01/25 14:25 than talking or can be heard Do you often feel tired/ No 06/01/25 14:25 fatigued/ sleepy during daytime? Has anyone observed you stop No 06/01/25 14:25 breathing during sleep? STOP Results Negative 06/01/25 14:25 QUESTION #5 FULL TEXT : Do you snore loudly (louder than talking or can be heard through closed doors)? 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 Specify any problems Hx of Preganancy in last 3 No 06/01/25 14:25 Months Nurse Filling Out Transfusion VCHRISTIN 06/01/25 14:25 & Questions: Date: 06/01/25 06/01/25 14:25 Time: 14:26 06/01/25 14:25 Patient unable to answer at this time (ie. confused, unrespo /Reproduction History /Reproductive History - mail distribution scheme examiner: /Reproductive Hx- mail distribution scheme examiner Hx Now No 06/01/25 14:25 Gestational Age (in weeks): EDC: Hx Hx Para Hx Section SAB No 06/01/25 14:25 Active Medications Active Medications: Current Medications Generic Name Dose Route Start Last Admin Trade Name Freq PRN Reason Stop Dose Admin Lactated Ringer's 1,000 mls @ 15 mls/hr 06/08/25 06:15 06/08/25 06:29 IV 15 mls/hr .Q48H OJ Administration PFSH Medical History Difficult intravenous access Post-menopausal Anemia Cirrhosis Fatty liver Neuropathy Restless legs DDD (degenerative disc disease) History of ulceration Incontinence History of IBS Gastric reflux Leg cramps History of edema Hypertension Pain Constipation Arthritis Walker as ambulation aid Ambulates with cane Bladder disease Back pain Former smoker History of pain when walking History of irregular heartbeat Heart murmur after rheumatic heart disease Home Medications ?Medication ?Instructions ?Recorded ?Last Taken ?Type acetaminophen 500 mg tablet 1,000 mg PO Q6H PRN pain 10/03/21 06/06/25 History (Tylenol Extra Strength) cyclobenzaprine 10 mg tablet 10 mg PO TID PRN muscle spasm 04/10/22 06/07/25 History cholecalciferol (vitamin D3) 1,250 1,250 mcg PO QWEEK 6 weeks #6 tabs 04/10/24 06/07/25 Rx mcg (50,000 unit) tablet gabapentin 100 mg capsule 100 mg PO BID nerve damage 09/03/24 06/07/25 History multivitamin (Daily Multi-Vitamin 1 tab PO DAILY 10/06/24 06/07/25 History tablet) vitamin E (dl, acetate) 180 mg 180 mg PO DAILY 10/06/24 06/01/25 History (400 unit) capsule metformin 500 mg tablet 1,000 mg PO BID 12/08/24 06/07/25 History ascorbic acid (vitamin C) 1,000 mg 1 g PO DAILY 06/01/25 06/07/25 History tablet (C-1000) coenzyme Q10 100 mg capsule (Co 100 mg PO DAILY 06/01/25 06/04/25 History Q-10) gabapentin 300 mg capsule 300 mg PO QHS 06/01/25 06/07/25 History lisinopril 20 mg tablet 20 mg PO DAILY 06/01/25 06/07/25 History omeprazole 40 mg capsule,delayed 40 mg PO DAILY 06/01/25 06/05/25 History release plant stanol margaret 450 mg capsule 900 mg PO DAILY 06/01/25 Unknown History (Cholest Off Plus) sucralfate 1 gram tablet 1 g PO QHS stomach ulcers 06/01/25 06/07/25 History Allergy/AdvReac Type Severity Reaction Status Date / Time epinephrine Allergy Severe Anaphylaxis Verified 06/08/25 06:17 venom-honey bee Allergy Severe Anaphylaxis Verified 06/08/25 06:17 tioconazole (From Monistat 1 Allergy Intermediate vaginal Verified 06/08/25 06:17 (tioconazole)) swelling latex Allergy Hives Verified 06/08/25 06:17 Family History Father Diabetes Cancer Mother Hypertension Cancer Carotid stenosis Surgical History Hx of surgical procedure Hx of surgical fusion joint History of esophagogastroduodenoscopy (EGD) Hx of colonoscopy with polypectomy History of eye surgery S/P LASIK surgery of both eyes H/O laparoscopy History of appendectomy Social History household members: other details: pet dog housing: house pets and animals: Yes Smoking Status: Former smoker alcohol intake: current alcohol intake frequency: holidays/special occasions only Alcohol type: wine what type of physical activity do you participate in: walking do you feel safe at home: Yes Review of Systems (Anesthesia) ROS Narrative System reviewed and no additional complaints, except as documented.
--- NOTE | 2025-06-08 07:25 | RAD_ITS ---
EXAM: XR Lumbosacral Spine, 2 or 3 Views CLINICAL INDICATION: RT LUMBAR RADIOFREQUENCY ABLATION L3 L4 L5 TECHNIQUE: Frontal and lateral views of the lumbar spine and sacrum. COMPARISON: No relevant prior studies available. FINDINGS: Total 8 fluoroscopic images was obtained. Total fluoroscopy time 24.4 seconds. Total radiation 5.38 mGy. RAD/Lumbar Spine 2 or 3 Views IMPRESSION: Fluoroscopic guidance was used intraoperatively. Please refer to operative not e for further details. Reading [facility]
[2025-06-08] MEDS: Lidocaine 1% (30 ml sdv) 30 ML Vial (07:37)
--- NOTE | 2025-06-08 07:50 | OP.PCM_ITS ---
Operative Report (Standard) Operative Information Date of Procedure: 06/08/25 Pre-Operative Diagnosis: 1 Post-Operative Diagnosis: 1 Surgery/Procedure Performed: 1 clerk rating: No Type of Anesthesia: Local MAC RN Documented Start/Stop Times: Operation Date: 06/08/25 07:30 Case Time Into Pre-Op 06/08/25 06:00 Anesthesia Start 06/08/25 07:24 Into Room 06/08/25 07:24 Procedure Start 06/08/25 07:32 Procedure End 06/08/25 07:42 Anesthesia End 06/08/25 07:45 Out of Room 06/08/25 07:45 Procedure Start Time: 07:50 Procedure Stop Time: 07:50 Select all DRAINS/GRAFTS/IMPLANTS that apply: None Estimated Blood Loss: 1 Specimen collected: No Description of surgery: PREOPERATIVE DIAGNOSIS: Lumbosacral spondylosis, lumbosacral degenerative disc disease, lumbar facet arthropathy POSTOPERATIVE DIAGNOSIS: Lumbosacral spondylosis, lumbosacral degenerative disc disease, lumbar facet arthropathy PROCEDURE PERFORMED: Right sided radiofrequency ablation of the medial branch at L3, L4, L5. ANESTHESIA: MAC. BLOOD LOSS: Minimal. COMPLICATIONS: None. DESCRIPTION OF PROCEDURE: History and physical of today was reviewed. Risks and benefits of the procedure were explained. The patient understood and agreed to proceed. Informed consent was obtained. IV inserted per routine protocol. The patient was taken to the operating room and placed in the prone position with a pillow positioned underneath the abdomen. The right side of her lower back was prepped and draped in a sterile fashion using iodine x3. Under fluoroscopy guidance in an oblique view, the L3 through S1 vertebral bodies were visualized. The skin and subcutaneous tissue was anesthetized with approximately 10 mL of 1% lidocaine using a 25-gauge regular needle. Under direct visualization on fluoroscopy at approximately 25-degree angle, starting on the right L3, ending on the right S1, passing through the L4 and L5, using a 20-gauge 15-cm with a 10-mm curved active-tip radiofrequency ablation needle, the needle was passed through the skin. The tip of the needle was maneuvered and directed towards the superior medial gutter of the transverse process at the vicinity of the medial branch. Once the tip of the needle was in contact with the bone, the needle was pulled approximately 2 mm off the bone. The stylette of each needle was then removed. After negative aspiration of blood or CSF and confirmation on AP, oblique as well as lateral view, the radiofrequency ablation probe was then inserted at each level. Impedance was then recorded at L3 to be 252 ohm, at L4 to be 223 ohm, at L5 to be 301 ohm, and at S1 to be 327 ohm. Motor evoked potential was then initiated to 1.5 volt without any motor response at each corresponding level. The probe was then removed intact and a total of 6 mL of preservative-free 1% lidocaine was injected in divided doses between those four levels after negative aspiration of blood or CSF. The radiofrequency a blation probe was then reinserted. After confirmation on AP, oblique as well as lateral view, radiofrequency ablation was then initiated to 80 degree Celsius for 90 second at each level. Once concluded, the probe was then removed intact. A total of 6 mL of preservative-free 0.25% Marcaine with 40 mg of Depo-Medrol was injected in divided doses between those four levels. The needles were then removed intact. The patient experienced no sign or symptoms of intrathecal or intravascular injection. The patient experienced no paresthesia. The procedure was completed without any apparent difficulty or any complications. The patient appeared to tolerate it well. Sensory as well as motor exam was unchanged from prior to the procedure. ASSESSMENT AND PLAN: This is a 60-year-old female with lumbosacral spondylosis, lumbosacral degenerative disc disease, lumbar facet arthropathy, status post right-sided lumbar radiofrequency ablation of the medial branch at L3-L5, patient will continue her current medications, patient will follow-up in approximately 2 weeks for reevaluation. Surgical Findings: 1 Complications Complications: No Admit VTE Documentation VTE Present on Admission: No VTE Mechan Device Prophylaxis: None VTE Pharm Prophylaxis ordered?: No
--- NOTE | 2025-06-08 07:53 | PCM.POST.ANE ---
Anesthesia: Postop Eval I Current Vital Signs Temperature: 97.8 F Pulse Rate: 77 Blood Pressure: 131/72 Respiratory Rate: 17 Pulse Ox: 98 Oxygen Delivery Method: Room Air Assessment Airway patent: Yes Spontaneous unlabored respirations: Yes Mental status: Awake and Calm nausea: No Vomiting: No Anesthesia Complication: No Fluid Hydration Crystalloid volume administer (ml): 200 Total IV fluid infused: 200 Progress Note Anesthesia document: Postop Eval 1 completed: Yes
--- NOTE | 2025-06-08 13:48 | POSTOPAN2_ITS ---
Anesthesia Postop Eval I Sum Postop Eval Completion status Anesthesia document: Postop Eval 1 completed: Yes Anesthesia Postop Eval I Summary Anesthesia Postop Eval I Summary: Anesthesia Postop Eval I: Assessment Summary Airway patent Yes 06/08/25 07:54 [email or web address] [email or web address] Spontaneous unlabored Yes 06/08/25 07:54 COLD [email or web address] respirations Mental status Awake,Calm 06/08/25 07:54 [email or web address] [email or web address] nausea No 06/08/25 07:54 [email or web address] [email or web address] Vomiting No 06/08/25 07:54 COLD [email or web address] Anesthesia Postop Eval I: Fluid Summary Crystalloid volume administer 200 06/08/25 07:54 [email or web address] [email or web address] (ml) Colloids volume administered ( ml) Blood Product volume administered (ml) Total IV fluid infused 200 06/08/25 07:54 COLD [email or web address] Anesthesia Postop Eval I: Summary Notes Anesthesia Complication No 06/08/25 07:54 [email or web address] [email or web address] Anesthesia Complication Comment: Post-operative progress note Anesthesia: Postop Eval II Evaluation Mental status: Awake and Calm Pain Level: 0 nausea: No Vomiting: No Complications Anesthesia Complication: No
--- NOTE | 2025-06-08 13:48 | PCM.POSTANE2 ---
Anesthesia Postop Eval I Sum Postop Eval Completion status Anesthesia document: Postop Eval 1 completed: Yes Anesthesia Postop Eval I Summary Anesthesia Postop Eval I Summary: Anesthesia Postop Eval I: Assessment Summary Airway patent Yes 06/08/25 07:54 [email or web address] Spontaneous unlabored Yes 06/08/25 07:54 [email or web address] respirations Mental status Awake,Calm 06/08/25 07:54 [email or web address] nausea No 06/08/25 07:54 [email or web address] Vomiting No 06/08/25 07:54 [email or web address] Anesthesia Postop Eval I: Fluid Summary Crystalloid volume administer 200 06/08/25 07:54 [email or web address] (ml) Colloids volume administered ( ml) Blood Product volume administered (ml) Total IV fluid infused 200 06/08/25 07:54 [email or web address] Anesthesia Postop Eval I: Summary Notes Anesthesia Complication No 06/08/25 07:54 [email or web address] Anesthesia Complication Comment: Post-operative progress note Anesthesia: Postop Eval II Evaluation Mental status: Awake and Calm Pain Level: 0 nausea: No Vomiting: No Complications Anesthesia Complication: No
== END 2025-06-08 08:27 | disposition home or self-care (01) ==
LOC: SDC 05:50 → AC 05:51
PROVIDERS: PCP Nurse Practitioner Family; Referring Provider Anesthesiology Pain Medicine; Visit Provider Anesthesiology Pain Medicine
PROC: (CPT 64635; principal; 2025-06-08 07:15)
DX: M51.370 Other intervertebral disc degeneration, lumbosacral region with discogenic back pain only (principal); M47.816 Spondylosis without myelopathy or radiculopathy, lumbar region; M47.817 Spondylosis without myelopathy or radiculopathy, lumbosacral region; I10 Essential (primary) hypertension; K21.9 Gastro-esophageal reflux disease without esophagitis; Z79.899 Other long term (current) drug therapy; Z87.891 Personal history of nicotine dependence
CPT/HCPCS: 64635; 64636; 01992; 72100; 76000; 82962

== ENCOUNTER 2025-08-03 09:00 | Day surgery (SDC) | payer MEDICARE, SELFPAY ==
[2025-08-03 09:02] VITALS: BP 147/60; PULSE 65; RESP 16; TEMP 36.4; O2SAT 100; BMI 27.1
[2025-08-03 09:35] VITALS: BP 138/81; BP 148/82; BP 162/87; O2SAT 98; O2SAT 99
--- NOTE | 2025-08-03 09:35 | RAD_ITS ---
PROCEDURE: CERV SPINE 2 OR 3 VIEWS 08/03/2025 REASON FOR EXAM: CERVICAL EPIDURAL TECHNIQUE: Procedure Code: RADSPCL Modality: DX Procedure: Fluoro for procedure COMPARISON: None FINDINGS: 9.1 seconds, 2.26 mGy, 3 images RAD/Cerv Spine 2 or 3 Views IMPRESSION: Fluoro was provided. Reading Location: [facility]
--- NOTE | 2025-08-03 09:42 | OP.PCM_ITS ---
Operative Report (Standard) Operative Information Date of Procedure: 08/03/25 Pre-Operative Diagnosis: Cervical radiculopathy, cervical degenerative disc disease, cervical spinal stenosis Post-Operative Diagnosis: Cervical radiculopathy, cervical degenerative disc disease, cervical spinal stenosis Surgery/Procedure Performed: Cervical epidural steroid injection, interlaminar at C7-T1 under fluoroscopy guidance. development eng: No Type of Anesthesia: Local RN Documented Start/Stop Times: Operation Date: 08/03/25 10:00 Case Time Into Pre-Op 08/03/25 09:01 Anesthesia Start 08/03/25 09:32 Into Room 08/03/25 09:32 Procedure Start 08/03/25 09:37 Procedure End 08/03/25 09:41 Procedure Start Time: Procedure Stop Time: Select all DRAINS/GRAFTS/IMPLANTS that apply: None Estimated Blood Loss: 0 Specimen collected: No Description of surgery: PREOPERATIVE DIAGNOSES: Cervical radiculopathy, cervical degenerative disc disease, cervical spinal stenosis POSTOPERATIVE DIAGNOSES:Cervical radiculopathy, cervical degenerative disc disease, cervical spinal stenosis PROCEDURE PERFORMED: Cervical epidural steroid injection, interlaminar at C7-T1 under fluoroscopy guidance. ANESTHESIA: Local. BLOOD LOSS: Minimal. COMPLICATIONS: None. DESCRIPTION OF PROCEDURE: History and physical of today was reviewed. Risks and benefits of the procedure were explained. The patient understood and agreed to proceed. Informed consent was obtained. IV inserted per routine protocol. The patient was taken to the operating room and placed in the prone position with a pillow positioned underneath the chest. The neck area was prepped and draped in a sterile fashion using iodine x3. Under fluoroscopy guidance on an AP view, the C7-T1 interlaminar space was identified. The skin and subcutaneous tissue was anesthetized with approximately 3 mL of 1% lidocaine using a 25-gauge regular needle. Under direct visualization on fluoroscopy, on AP view, using a 20-gauge 2-1/2-inch Tuohy needle, the needle was advanced via the skin. The tip of the needle was maneuvered and directed towards the interlaminar space at C7- T1. Loss of resistance technique was carried to air. Loss of resistance technique was encountered. Once encountered, after negative aspiration for blood and CSF, a total of 1 mL of contrast was injected to confirm correct placement of the needle as well as cephalocaudal spread of the contrast. Confirmation was obtained on AP as well as lateral view. After repeated negative aspiration and confirmation, a total of 3 mL of preservative-free normal saline and 80 mg of Depo-Medrol was injected easily. The needle was then removed intact. The patient experienced no sign or symptoms of intrathecal or intravascular injection. The patient experienced no paresthesia. The procedure was completed without any apparent difficulty or any complications. The patient appeared to tolerate it well. ASSESSMENT AND PLAN: This is a 60-year-old female with cervical radiculopathy, cervical degenerative disc disease, cervical spinal stenosis status post cervical epidural steroid injection interlaminar at C7-T1 under fluoroscopic guidance, patient will continue her current medications, patient will follow up in approximately 2 weeks for reevaluation. Surgical Findings: 0 Complications Complications: No Admit VTE Documentation VTE Present on Admission: No VTE Mechan Device Prophylaxis: None VTE Pharm Prophylaxis ordered?: No
[2025-08-03 09:55] VITALS: BP 129/64; BP 138/81; PULSE 63; RESP 16; TEMP 36.6; O2SAT 96
== END 2025-08-03 10:50 | disposition home or self-care (01) ==
LOC: SDC 10:46 → AC 10:48
PROVIDERS: PCP Nurse Practitioner Family; Referring Provider Anesthesiology Pain Medicine; Visit Provider Anesthesiology Pain Medicine
PROC: 3E0S3BZ Introduction of Anesthetic Agent into Epidural Space, Percutaneous Approach (ICD-10-PCS; CPT 62320; principal; 2025-08-03 09:55)
DX: M54.12 Radiculopathy, cervical region (principal); M48.02 Spinal stenosis, cervical region
CPT/HCPCS: 62321; 64490; 72040; A4216

== ENCOUNTER → 2025-11-03 | Outpatient (CLI) | payer MEDICARE, SELFPAY ==
[2025-11-03 16:50] LABS: Hematocrit 36.7 % (37-47); Hemoglobin 11.8 g/dL (12.0-15.0); Immature Granulocytes Count 0.030 X10^3/uL (0.0-0.0); Mean Corp Hgb Conc 32.2 g/dL (32-36); Mean Corpuscular Volume 93.1 fL (81-99); Mean Platelet Vol. 10.6 fl (6.2-12.0); NRBC Flagged by Analyzer 0 % (0-5); Platelet Count 402 K/mm3 (150-450); RBC Distribution Width CV 13.0 % (11.6-14.6); RBC Distribution Width SD 44.5 fl (35.1-43.9); Red Blood Count 3.94 M/mm3 (4.2-5.4); White Blood Count 6.6 K/mm3 (4.4-11.0)
[2025-11-03 17:48] LABS: AST(SGOT) 34 U/L (<=31); Alanine Aminotransfer ALT/SGPT 40 U/L (<=34); Albumin, Serum 4.3 g/dL (3.5-5.0); Alkaline Phosphatase 134 U/L (35-104); Anion Gap 14 (5-15); BUN 13 mg/dL (4-19); BUN/Creat Ratio 21.0 RATIO (10-20); Calcium,Total 9.9 mg/dL (7.6-11.0); Carbon Dioxide 24.0 mmol/L (21.0-32.0); Chloride 102 mmol/L (98-108); Cholesterol 158 mg/dL (<=200); Globulin 3.1 g/dL (2.2-4.2); Glucose 84 mg/dL (70-99); Low Density Lipoprotein Calc. 82 mg/dL; Potassium 4.1 mmol/L (3.3-5.1); Triglycerides 206 mg/dL; Very Low Density Lipoprotein 41 mg/dL (5-40); Vitamin D,25 Hydroxy 108.0 ng/mL (30-100); cholesterol:hdl ratio screen 3.85
== END | disposition home or self-care (01) ==
LOC: VSLAB 10:42
PROVIDERS: PCP Nurse Practitioner Family; Referring Provider Nurse Practitioner Family; Visit Provider Nurse Practitioner Family
DX: E55.9 Vitamin D deficiency, unspecified (principal); K76.0 Fatty (change of) liver, not elsewhere classified; E78.5 Hyperlipidemia, unspecified; R73.03 Prediabetes; I10 Essential (primary) hypertension
CPT/HCPCS: 36415; 80053; 80061; 82306; 83036; 84443; 85025